=== PATIENT | male | born 1960 | race Two or more races ===

== ENCOUNTER → 2017-05-14 | Emergency (ER) | payer MEDICAID ==
[~2017-05-14] MED LIST: ACTOS; ALBUTEROL SULF 2.5 MG/0.5ML(0.5%) NEB SOLN ONE; AMIT PO; ASPI-266 PO; ATOR20TA PO; CANA300T OR; GLIM4TAB42 PO; GLYB1POW; GLYB5TAB8; IPRATROPIUM BROM 0.5 MG/2.5ML INH SOL ONE; LISI10TA6 PO; LISIPOW; METF-370; METF-370 PO; METFORMIN; METH750T3 PO; PIOG15TA46 OR; PIOG30TA7; SIMVPOW2; TRAM50TA2 PO
== END | disposition left against medical advice (07) ==
LOC: ER 23:40
DX: R07.89 Other chest pain (principal); R06.02 Shortness of breath; Z53.21 Procedure and treatment not carried out due to patient leaving prior to being seen by health care provider

== ENCOUNTER 2017-05-15 10:14 | Inpatient (IN) | payer MEDICAID ==
[~2017-05-15] VITALS: Ht 170.2 cm; Wt 95.1 kg
[~2017-05-15 10:14] MED LIST changes: -ALBUTEROL SULF 2.5 MG/0.5ML(0.5%) NEB SOLN ONE; -AMIT PO; -ASPI-266 PO; -ATOR20TA PO; -CANA300T OR; -GLIM4TAB42 PO; -IPRATROPIUM BROM 0.5 MG/2.5ML INH SOL ONE; -LISI10TA6 PO; -METF-370 PO; -METH750T3 PO; -PIOG15TA46 OR; -TRAM50TA2 PO
[2017-05-15 10:56] LABS: Basophils # (auto) 0.1 uL; Basophils % (auto) 0.9 % (0.0-2.0); CONDITION AutoValidated; Eosinophils # (auto) 0.1 uL; Eosinophils % (auto) 2.5 % (0.0-7.0); Hematocrit 47.5 % (41.0-53.0); Hemoglobin 15.9 g/dL (13.5-17.5); Lymphocytes # (auto) 1.9 uL; Lymphocytes % (auto) 31.8 % (10.0-50.0); Mean Corpuscular Hemoglobin 30.5 pg (28.0-32.0); Mean Corpuscular Hgb Conc. 33.4 g/dL (32.0-36.0); Mean Corpuscular Volume 91.3 fL (80.0-100.0); Mean Platelet Volume 8.4 fL (7.4-10.4); Monocytes # (auto) 0.4 uL; Monocytes % (auto) 7.2 % (0.0-12.0); Neutrophils # (auto) 3.4 uL; Neutrophils % (auto) 57.6 % (37.0-80.0); Platelet Count (auto) 288 10^3/uL (140-450); Red Cell Distribution Width 14.5 % (11.6-16.0); White Blood Cell 5.9 10^3/uL (4.4-10.8)
[2017-05-15 11:14] LABS: Albumin 3.6 g/dL (3.4-5.0); BUN/Creatinine Ratio 16.7; Bilirubin, Total 0.5 mg/dL (0.2-1.0); Calcium 8.8 mg/dL (8.5-10.1); Total Protein 7.4 g/dL (6.4-8.2)
[2017-05-15] MEDS ORDERED: IPRATROPIUM BROM 0.5 MG/2.5ML INH SOL NEB ONE (15:30)
[2017-05-15] MEDS ORDERED: methylPREDNISolone SOD SUCC 125 MG/2 ML VL IV ONE (15:30)
[2017-05-15] MEDS ORDERED: ALBUTEROL SULF 2.5 MG/0.5ML(0.5%) NEB SOLN NEB ONE (15:30)
[2017-05-15 15:58] LABS: B-Type Natriuretic Peptide 29.1 pg/mL (0-100)
[2017-05-15 15:59] LABS: Temperature: 23.7 C (20.0-25.0)
[2017-05-15] MEDS ORDERED: POTASSIUM CHL 10 Meq TABLET PO ONE (17:30)
[2017-05-15] MEDS ORDERED: DEXTROSE (50%) 50ML SYRG IV PRN (17:30)
[2017-05-15] MEDS ORDERED: FUROSEMIDE 40 MG/4 ML VIAL IV ONE (17:30)
[2017-05-15] MEDS ORDERED: NITROGLYCERIN 0.4 MG SL TAB SL PRN (17:45)
[2017-05-15] MEDS ORDERED: DOCUSATE SOD 100 MG CAP PO PRN (17:45)
[2017-05-15] MEDS ORDERED: ONDANSETRON HCL 4 MG/2 ML VIAL IV PRN (17:45)
[2017-05-15] MEDS ORDERED: HYDROcodone-ACET 5/325MG TAB PO PRN (17:45)
[2017-05-15] MEDS ORDERED: TEMAZEPAM 15 MG CAP PO PRN (17:45)
[2017-05-15] MEDS ORDERED: MORPHINE SULF INJ 2 MG/ML SYRINGE 1ML IV PRN ×2 (17:45)
[2017-05-15] MEDS: ALBUTEROL SULF 2.5 MG/0.5ML(0.5%) NEB SOLN NEB SCH (18:44)
[2017-05-15] MEDS: IPRATROPIUM BROM 0.5 MG/2.5ML INH SOL NEB SCH (18:44)
[2017-05-15 20:06] LABS: Urine RBC None Seen /hpf (0 - 3)
[2017-05-15 20:13] VITALS: BP 159/87
[2017-05-15 20:26] LABS: Urine Bilirubin Negative (Negative); Urine Blood Negative /uL (Negative); Urine Color Colorless (Yellow); Urine Ketone Negative (Negative); Urine Nitrite Negative (Negative); Urine Urobilinogen Normal (Negative)
[2017-05-15 20:39] LABS: Urine Glucose 4+ mg/dL (Normal)
[2017-05-15] MEDS: ATORVASTATIN 20 MG TAB PO SCH (21:54)
[2017-05-15] MEDS: AMITRIPTYLINE HCL 25 MG TAB PO SCH (21:54)
[2017-05-15] MEDS: ACCU-CHEK COMFORT CURVE STRIP VI SCH (21:58)
[2017-05-15] MEDS: InsuLIN REG 1unit/0.01ml Soln (100units/ml) SC SCH (22:05)
[2017-05-15] MEDS: SODIUM CHLOR 0.9% PF (SALINE LOCK) 10ML VIAL IV SCH (22:06)
[2017-05-15 23:10] VITALS: BP 167/91
[2017-05-15] MEDS ORDERED: METH750T3 PO (23:39)
[2017-05-15] MEDS ORDERED: CANA300T OR (23:39)
[2017-05-15] MEDS ORDERED: AMIT PO (23:39)
[2017-05-15] MEDS ORDERED: METF-370 PO (23:39)
[2017-05-15] MEDS ORDERED: ASPI-266 PO (23:39)
[2017-05-15] MEDS ORDERED: GLIM4TAB42 PO (23:39)
[2017-05-15] MEDS ORDERED: PIOG15TA46 OR (23:39)
[2017-05-15] MEDS ORDERED: LISI10TA6 PO (23:39)
[2017-05-15] MEDS ORDERED: ATOR20TA PO (23:39)
[2017-05-15] MEDS ORDERED: TRAM50TA2 PO (23:39)
[2017-05-16] VITALS (7 sets, daily range): BP systolic 113–160; BP diastolic 75–97
[2017-05-16] MEDS: ALBUTEROL SULF 2.5 MG/0.5ML(0.5%) NEB SOLN NEB SCH ×4 (01:08→18:53)
[2017-05-16] MEDS: IPRATROPIUM BROM 0.5 MG/2.5ML INH SOL NEB SCH ×4 (01:08→18:53)
[2017-05-16] MEDS: GLIMEPIRIDE 2 MG TAB PO SCH (06:08)
[2017-05-16] MEDS: ACCU-CHEK COMFORT CURVE STRIP VI SCH ×4 (06:22→22:16)
[2017-05-16] MEDS: InsuLIN REG 1unit/0.01ml Soln (100units/ml) SC SCH ×4 (06:23→22:17)
[2017-05-16] MEDS: SODIUM CHLOR 0.9% PF (SALINE LOCK) 10ML VIAL IV SCH ×3 (06:25→22:07)
[2017-05-16 06:39] LABS: Basophils # (auto) 0 uL; Basophils % (auto) 0.2 % (0.0-2.0); CONDITION AutoValidated; Eosinophils # (auto) 0 uL; Hematocrit 47.5 % (41.0-53.0); Hemoglobin 15.8 g/dL (13.5-17.5); Lymphocytes % (auto) 8.3 % (10.0-50.0); Mean Corpuscular Hemoglobin 30.2 pg (28.0-32.0); Mean Corpuscular Hgb Conc. 33.3 g/dL (32.0-36.0); Mean Corpuscular Volume 90.7 fL (80.0-100.0); Mean Platelet Volume 8.6 fL (7.4-10.4); Monocytes # (auto) 0.2 uL; Monocytes % (auto) 1.4 % (0.0-12.0); Neutrophils # (auto) 10.4 uL; Neutrophils % (auto) 90.1 % (37.0-80.0); Platelet Count (auto) 315 10^3/uL (140-450); Red Cell Distribution Width 14.5 % (11.6-16.0); White Blood Cell 11.5 10^3/uL (4.4-10.8)
[2017-05-16 07:07] LABS: Albumin 3.5 g/dL (3.4-5.0); BUN/Creatinine Ratio 28.7; Bilirubin, Total 0.4 mg/dL (0.2-1.0); Calcium 9.2 mg/dL (8.5-10.1); Potassium 3.9 mmol/L (3.5-5.1); Total Protein 7.5 g/dL (6.4-8.2)
[2017-05-16] MEDS: PIOGLITAZONE HYDROCHLORIDE 30 MG TAB PO SCH (10:00)
[2017-05-16] MEDS: INVOKANA 300 MG PO SCH (10:00)
[2017-05-16] MEDS: MULTIPLE VITAMIN TAB PO SCH (10:01)
[2017-05-16] MEDS: LISINOPRIL 10 MG TAB PO SCH (10:01)
[2017-05-16] MEDS: POTASSIUM CHL 10 Meq TABLET PO SCH (10:02)
[2017-05-16] MEDS: ASPirin-EC 81 mg tab PO SCH (10:02)
[2017-05-16] MEDS: FUROSEMIDE 40 MG/4 ML VIAL IV SCH (10:07)
[2017-05-16] MEDS: METHOCARBAMOL 500 MG TAB PO PRN (20:45)
[2017-05-16] MEDS: traMADol HCL 50 MG TAB PO PRN (20:45)
[2017-05-16] MEDS: AMITRIPTYLINE HCL 25 MG TAB PO SCH (22:07)
[2017-05-16] MEDS: ATORVASTATIN 20 MG TAB PO SCH (22:08)
[2017-05-17] MEDS: IPRATROPIUM BROM 0.5 MG/2.5ML INH SOL NEB SCH ×4 (00:52→19:18)
[2017-05-17] MEDS: ALBUTEROL SULF 2.5 MG/0.5ML(0.5%) NEB SOLN NEB SCH ×4 (00:52→19:18)
[2017-05-17 05:08] VITALS: BP 129/89
[2017-05-17] MEDS: SODIUM CHLOR 0.9% PF (SALINE LOCK) 10ML VIAL IV SCH ×3 (06:26→21:43)
[2017-05-17] MEDS: GLIMEPIRIDE 2 MG TAB PO SCH (06:35)
[2017-05-17] MEDS: ACCU-CHEK COMFORT CURVE STRIP VI SCH ×4 (06:35→21:44)
[2017-05-17] MEDS: InsuLIN REG 1unit/0.01ml Soln (100units/ml) SC SCH ×4 (06:35→21:49)
[2017-05-17] MEDS: ACETAMINOPHEN 325 MG TAB PO PRN ×3 (07:06→09:54)
[2017-05-17 07:09] LABS: Basophils # (auto) 0.1 uL; Basophils % (auto) 0.9 % (0.0-2.0); CONDITION Y; Eosinophils # (auto) 0.2 uL; Eosinophils % (auto) 1.8 % (0.0-7.0); Hematocrit 46.8 % (41.0-53.0); Hemoglobin 15.4 g/dL (13.5-17.5); Lymphocytes # (auto) 3.2 uL; Lymphocytes % (auto) 32.1 % (10.0-50.0); Mean Corpuscular Hgb Conc. 32.8 g/dL (32.0-36.0); Mean Corpuscular Volume 91.6 fL (80.0-100.0); Mean Platelet Volume 8.6 fL (7.4-10.4); Monocytes # (auto) 0.7 uL; Monocytes % (auto) 6.8 % (0.0-12.0); Neutrophils # (auto) 5.7 uL; Neutrophils % (auto) 58.4 % (37.0-80.0); Platelet Count (auto) 314 10^3/uL (140-450); Red Cell Distribution Width 14.6 % (11.6-16.0); White Blood Cell 9.8 10^3/uL (4.4-10.8)
[2017-05-17 07:25] LABS: Albumin 3.6 g/dL (3.4-5.0); BUN/Creatinine Ratio 35.8; Bilirubin, Total 0.3 mg/dL (0.2-1.0); Calcium 8.8 mg/dL (8.5-10.1); Potassium 3.7 mmol/L (3.5-5.1); Total Protein 7.3 g/dL (6.4-8.2)
[2017-05-17 08:00] VITALS: BP 130/81
[2017-05-17 08:15] VITALS: BP 130/81
[2017-05-17 08:27] LABS: B-Type Natriuretic Peptide 21.75 pg/mL (0-100)
[2017-05-17 08:29] LABS: Temperature: 24.5 C (20.0-25.0)
[2017-05-17] MEDS: traMADol HCL 50 MG TAB PO PRN ×2 (08:58→20:28)
[2017-05-17] MEDS ORDERED: LORazepam 2MG/ML-1ML VIAL IV ONE ×2 (09:15→10:45)
[2017-05-17] MEDS: INVOKANA 300 MG PO SCH (10:00)
[2017-05-17] MEDS ORDERED: ADENOSINE 81 MG in GIVE UN-DILUTED 0 ML IV ONE (10:45)
[2017-05-17] MEDS: POTASSIUM CHL 10 Meq TABLET PO SCH (11:19)
[2017-05-17] MEDS: FUROSEMIDE 40 MG/4 ML VIAL IV SCH (11:19)
[2017-05-17] MEDS: MULTIPLE VITAMIN TAB PO SCH (11:20)
[2017-05-17] MEDS: PIOGLITAZONE HYDROCHLORIDE 30 MG TAB PO SCH (11:49)
[2017-05-17] MEDS: ASPirin-EC 81 mg tab PO SCH (11:50)
[2017-05-17] MEDS: LISINOPRIL 10 MG TAB PO SCH (11:50)
[2017-05-17 12:01] VITALS: BP 137/100
[2017-05-17 20:00] VITALS: BP 127/74
[2017-05-17] MEDS: METHOCARBAMOL 500 MG TAB PO PRN (20:28)
[2017-05-17 21:42] VITALS: BP 127/74
[2017-05-17] MEDS: ATORVASTATIN 20 MG TAB PO SCH (21:44)
[2017-05-17] MEDS: AMITRIPTYLINE HCL 25 MG TAB PO SCH (21:44)
[2017-05-18 04:36] VITALS: BP 128/75
[2017-05-18] MEDS: SODIUM CHLOR 0.9% PF (SALINE LOCK) 10ML VIAL IV SCH ×3 (05:34→21:47)
[2017-05-18] MEDS: GLIMEPIRIDE 2 MG TAB PO SCH (06:22)
[2017-05-18] MEDS: ACCU-CHEK COMFORT CURVE STRIP VI SCH ×4 (06:22→21:50)
[2017-05-18] MEDS: InsuLIN REG 1unit/0.01ml Soln (100units/ml) SC SCH ×4 (06:30→21:50)
[2017-05-18] MEDS: IPRATROPIUM BROM 0.5 MG/2.5ML INH SOL NEB SCH ×4 (06:34→19:37)
[2017-05-18] MEDS: ALBUTEROL SULF 2.5 MG/0.5ML(0.5%) NEB SOLN NEB SCH ×4 (06:34→19:37)
[2017-05-18 09:00] VITALS: BP 131/81
[2017-05-18] MEDS: INVOKANA 300 MG PO SCH (10:00)
[2017-05-18] MEDS ORDERED: FUROSEMIDE 40 MG/4 ML VIAL IV ONE (10:15)
[2017-05-18] MEDS: POTASSIUM CHL 10 Meq TABLET PO SCH ×2 (10:19→21:49)
[2017-05-18] MEDS: LISINOPRIL 10 MG TAB PO SCH (10:20)
[2017-05-18] MEDS: ASPirin-EC 81 mg tab PO SCH (10:20)
[2017-05-18] MEDS: MULTIPLE VITAMIN TAB PO SCH (10:20)
[2017-05-18] MEDS: PIOGLITAZONE HYDROCHLORIDE 30 MG TAB PO SCH (10:21)
[2017-05-18 13:00] VITALS: BP 150/93
[2017-05-18] MEDS: SPIRONOLACTONE 25 MG TAB PO SCH ×2 (14:58→21:48)
[2017-05-18 16:36] VITALS: BP 124/75
[2017-05-18 20:00] VITALS: BP 128/48
[2017-05-18] MEDS: traMADol HCL 50 MG TAB PO PRN (20:24)
[2017-05-18] MEDS: METHOCARBAMOL 500 MG TAB PO PRN (20:24)
[2017-05-18] MEDS: CARVEDILOL 3.125 MG TAB PO SCH (21:48)
[2017-05-18] MEDS: ATORVASTATIN 20 MG TAB PO SCH (21:49)
[2017-05-18] MEDS: AMITRIPTYLINE HCL 25 MG TAB PO SCH (21:49)
[2017-05-18 22:00] VITALS: BP 128/48
[2017-05-19] MEDS: IPRATROPIUM BROM 0.5 MG/2.5ML INH SOL NEB SCH ×2 (01:23→05:58)
[2017-05-19] MEDS: ALBUTEROL SULF 2.5 MG/0.5ML(0.5%) NEB SOLN NEB SCH ×2 (01:23→05:58)
[2017-05-19 03:48] VITALS: BP 128/48
[2017-05-19] MEDS: SODIUM CHLOR 0.9% PF (SALINE LOCK) 10ML VIAL IV SCH (04:39)
[2017-05-19 05:00] VITALS: BP 112/71
[2017-05-19] MEDS: SPIRONOLACTONE 25 MG TAB PO SCH (06:33)
[2017-05-19] MEDS: ACCU-CHEK COMFORT CURVE STRIP VI SCH (06:35)
[2017-05-19] MEDS: GLIMEPIRIDE 2 MG TAB PO SCH (06:35)
[2017-05-19] MEDS: InsuLIN REG 1unit/0.01ml Soln (100units/ml) SC SCH (06:36)
[2017-05-19 08:08] LABS: Basophils # (auto) 0.1 uL; CONDITION Y; Eosinophils # (auto) 0.2 uL; Eosinophils % (auto) 2.6 % (0.0-7.0); Hematocrit 49.3 % (41.0-53.0); Hemoglobin 16.4 g/dL (13.5-17.5); Lymphocytes # (auto) 2.3 uL; Lymphocytes % (auto) 32.9 % (10.0-50.0); Mean Corpuscular Hemoglobin 30.2 pg (28.0-32.0); Mean Corpuscular Hgb Conc. 33.2 g/dL (32.0-36.0); Mean Corpuscular Volume 91.1 fL (80.0-100.0); Mean Platelet Volume 8.6 fL (7.4-10.4); Monocytes # (auto) 0.6 uL; Monocytes % (auto) 7.9 % (0.0-12.0); Neutrophils # (auto) 3.9 uL; Neutrophils % (auto) 55.6 % (37.0-80.0); Platelet Count (auto) 310 10^3/uL (140-450); Red Cell Distribution Width 14.6 % (11.6-16.0)
[2017-05-19 08:24] VITALS: BP 130/82
[2017-05-19 08:54] LABS: Albumin 3.6 g/dL (3.4-5.0); BUN/Creatinine Ratio 40.2; Bilirubin, Total 0.4 mg/dL (0.2-1.0); Calcium 9.3 mg/dL (8.5-10.1); Magnesium 2.4 mg/dL (1.6-2.6); Potassium 4.4 mmol/L (3.5-5.1); Total Protein 7.4 g/dL (6.4-8.2)
[2017-05-19] MEDS: CARVEDILOL 3.125 MG TAB PO SCH (09:15)
[2017-05-19] MEDS: PIOGLITAZONE HYDROCHLORIDE 30 MG TAB PO SCH (09:15)
[2017-05-19] MEDS: POTASSIUM CHL 10 Meq TABLET PO SCH (09:16)
[2017-05-19] MEDS: LISINOPRIL 10 MG TAB PO SCH (09:16)
[2017-05-19] MEDS: ASPirin-EC 81 mg tab PO SCH (09:16)
[2017-05-19] MEDS: MULTIPLE VITAMIN TAB PO SCH (09:17)
[2017-05-19] MEDS ORDERED: FUROSEMIDE 40 MG/4 ML VIAL IV SCH (10:00)
[2017-05-19] MEDS: INVOKANA 300 MG PO SCH (10:30)
[2017-05-19 12:03] VITALS: BP 130/82
[2017-05-19 12:53] VITALS: BP 125/83
== END 2017-05-19 13:20 | disposition home or self-care (01) | DRG 194 ==
LOC: ER 10:20 → TELE 10:21 → TELE-WESTW 20:13
PROVIDERS: ADMIT Internal Medicine; ATTEND Internal Medicine
DX: I11.0 Hypertensive heart disease with heart failure (principal); E11.65 Type 2 diabetes mellitus with hyperglycemia; J45.909 Unspecified asthma, uncomplicated; I50.43 Acute on chronic combined systolic (congestive) and diastolic (congestive) heart failure; E78.5 Hyperlipidemia, unspecified; E66.9 Obesity, unspecified; Z68.32 Body mass index [BMI] 32.0-32.9, adult; E78.00 Pure hypercholesterolemia, unspecified; F17.210 Nicotine dependence, cigarettes, uncomplicated; J98.11 Atelectasis; Z83.3 Family history of diabetes mellitus; Z71.9 Counseling, unspecified
CPT/HCPCS: 36415; 36600; 71010; 80053; 81001; 82805; 82962; 83036; 83735; 83880; 84484; 85025; 85379; 93005; 93306; 94640; 96374; 96375; 99291; J0153; J1815

== ENCOUNTER 2018-10-15 18:04 | Emergency (ER) | payer MEDICAID ==
[~2018-10-15] VITALS: Ht 170.2 cm; Wt 109.3 kg
[~2018-10-15 18:04] MED LIST changes: -ACTOS; +AMIT PO; +ASPI-266 PO; +ATOR20TA PO; +CANA300T OR; +GLIM4TAB42 PO; -GLYB1POW; -GLYB5TAB8; +LISI10TA6 PO; -LISIPOW; -METF-370; +METF-370 PO; -METFORMIN; +METH750T3 PO; +PIOG1TAB36 OR; -PIOG30TA7; -SIMVPOW2; +TRAM50TA2 PO
[2018-10-15 19:06] LABS: Urine Bacteria NONE SEEN /hpf (None Seen); Urine Blood Negative /uL (Negative); Urine Specific Gravity 1.002 (1.001-1.035); Urine WBC <1 /hpf (0 - 3)
[2018-10-15 19:34] LABS: Basophils # (auto) 0.1 uL; Basophils % (auto) 0.9 % (0.0-2.0); Eosinophils # (auto) 0.2 uL; Eosinophils % (auto) 2.3 % (0.0-7.0); Hematocrit 41.3 % (41.0-53.0); Hemoglobin 13.3 g/dL (13.5-17.5); Lymphocytes # (auto) 2.5 uL; Lymphocytes % (auto) 31.1 % (10.0-50.0); Mean Corpuscular Hemoglobin 29.7 pg (28.0-32.0); Mean Corpuscular Hgb Conc. 32.2 g/dL (32.0-36.0); Mean Corpuscular Volume 92.3 fL (80.0-100.0); Monocytes # (auto) 0.7 uL; Monocytes % (auto) 8.6 % (0.0-12.0); Neutrophils # (auto) 4.5 uL; Neutrophils % (auto) 57.1 % (37.0-80.0); Nucleated Red Blood Cells % 0.2 %; Platelet Count (auto) 241 10^3/uL (140-450); Red Blood Cells 4.48 10^6/uL (4.5-5.90); Red Cell Distribution Width 14.6 % (11.8-14.3)
[2018-10-15] MEDS: ONDANSETRON HCL 4 MG/2 ML VIAL IV ONE (19:41)
[2018-10-15] MEDS: MORPHINE SULFATE 4 MG/ML SYR/VIAL IV ONE ×2 (19:41→20:26)
[2018-10-15 21:20] VITALS: BP 96/51
== END 2018-10-15 22:23 | disposition home or self-care (01) ==
LOC: ER 18:04
DX: S32.029A Unspecified fracture of second lumbar vertebra, initial encounter for closed fracture (principal); S29.019A Strain of muscle and tendon of unspecified wall of thorax, initial encounter; E11.9 Type 2 diabetes mellitus without complications; I10 Essential (primary) hypertension; E78.5 Hyperlipidemia, unspecified; F17.210 Nicotine dependence, cigarettes, uncomplicated; E66.01 Morbid (severe) obesity due to excess calories; Z68.37 Body mass index [BMI] 37.0-37.9, adult; Z79.899 Other long term (current) drug therapy; X50.1XXA Overexertion from prolonged static or awkward postures, initial encounter; Y93.89 Activity, other specified; Y99.8 Other external cause status; Y92.89 Other specified places as the place of occurrence of the external cause
CPT/HCPCS: 36415; 71046; 72128; 72131; 81001; 84484; 85025; 93005; 94660; 94761; 96374; 96375; 96376; 99285; J2270; J2405

== ENCOUNTER 2022-06-25 15:03 | Emergency (ER) | payer MEDICAID ==
[~2022-06-25] VITALS: Ht 170.2 cm; Wt 85.8 kg
[~2022-06-25 15:03] MED LIST changes: -AMIT PO; +AMIT10TA8 PO; -ASPI-266 PO; +ASPI1TAB91 PO; +LISI-716 PO; -LISI10TA6 PO; +METH750T22 PO; -METH750T3 PO
[2022-06-25 19:31] LABS: Basophils # (auto) 0 10 ^3/uL (0-0.2); Basophils % (auto) 0.7 % (0.0-2.0); Eosinophils # (auto) 0.1 10 ^3/uL (0-0.8); Eosinophils % (auto) 1.6 % (0.0-7.0); Hematocrit 43.1 % (41.0-53.0); Hemoglobin 13.8 g/dL (13.5-17.5); Lymphocytes # (auto) 1.7 10 ^3/uL (0.4-5.4); Mean Corpuscular Hemoglobin 30.2 pg (28.0-32.0); Mean Corpuscular Hgb Conc. 31.9 g/dL (32.0-36.0); Mean Corpuscular Volume 94.5 fL (80.0-100.0); Monocytes # (auto) 0.7 10 ^3/uL (0-1.3); Monocytes % (auto) 10.3 % (0.0-12.0); Neutrophils # (auto) 4.7 10 ^3/uL (1.6-8.6); Neutrophils % (auto) 64.4 % (37.0-80.0); Red Blood Cells 4.56 10^6/uL (4.5-5.90); Red Cell Distribution Width 14.9 % (11.8-14.3); White Blood Cell 7.3 10^3/uL (4.4-10.8)
[2022-06-25 19:43] LABS: Urine WBC None Seen /hpf (0 - 3)
[2022-06-25 19:44] LABS: Albumin 3.3 g/dL (3.4-5.0); BUN/Creatinine Ratio 22.7; Calcium 9.4 mg/dL (8.5-10.1); Potassium 4.3 mmol/L (3.5-5.1)
[2022-06-25 19:51] LABS: Bilirubin, Total 0.2 mg/dL (0.2-1.0); Total Protein 6.9 g/dL (6.4-8.2)
[2022-06-25 20:21] LABS: Urine Bacteria NONE SEEN /hpf (None Seen); Urine Blood Negative /uL (Negative); Urine Specific Gravity 1.033 (1.001-1.035)
[2022-06-25 21:08] VITALS: BP 138/76
== END 2022-06-25 21:17 | disposition home or self-care (01) ==
LOC: ER 15:03
DX: E11.65 Type 2 diabetes mellitus with hyperglycemia (principal); I10 Essential (primary) hypertension; E78.5 Hyperlipidemia, unspecified; F17.210 Nicotine dependence, cigarettes, uncomplicated; Z79.82 Long term (current) use of aspirin; Z79.899 Other long term (current) drug therapy
CPT/HCPCS: 36415; 80053; 81001; 82962; 85025

== ENCOUNTER 2022-10-15 09:25 | Inpatient (IN) | payer MEDICAID ==
[~2022-10-15] VITALS: Ht 30.5 cm; Wt 88.0 kg
[2022-10-15] MEDS ORDERED: LABETALOL HCL 5 MG/ML 4ML SYRINGE IV ONE ×2 (09:30→11:00)
[2022-10-15] MEDS ORDERED: SODIUM CHLORIDE 0.9% 500 ML IV ONE (09:30)
[2022-10-15 10:13] LABS: Albumin 3.4 g/dL (3.4-5.0); Calcium 9.5 mg/dL (8.5-10.1); Magnesium 2.9 mg/dL (1.6-2.6); Potassium 4.9 mmol/L (3.5-5.1)
[2022-10-15 10:16] LABS: Basophils # (auto) 0 10 ^3/uL (0-0.2); Basophils % (auto) 0.4 % (0.0-2.0); Eosinophils # (auto) 0 10 ^3/uL (0-0.8); Eosinophils % (auto) 0.1 % (0.0-7.0); Hematocrit 39.7 % (41.0-53.0); Hemoglobin 12.6 g/dL (13.5-17.5); Lymphocytes # (auto) 2.5 10 ^3/uL (0.4-5.4); Lymphocytes % (auto) 23.8 % (10.0-50.0); Mean Corpuscular Hgb Conc. 31.7 g/dL (32.0-36.0); Mean Corpuscular Volume 97.8 fL (80.0-100.0); Monocytes # (auto) 0.5 10 ^3/uL (0-1.3); Monocytes % (auto) 4.9 % (0.0-12.0); Neutrophils # (auto) 7.5 10 ^3/uL (1.6-8.6); Neutrophils % (auto) 70.8 % (37.0-80.0); Nucleated Red Blood Cells % 0.1 %; Red Blood Cells 4.06 10^6/uL (4.5-5.90); Red Cell Distribution Width 14.6 % (11.8-14.3); White Blood Cell 10.6 10^3/uL (4.4-10.8)
[2022-10-15 10:19] LABS: INR 0.97 (0.9-1.15)
[2022-10-15 10:20] LABS: BUN/Creatinine Ratio 35.3; Bilirubin, Total 0.6 mg/dL (0.2-1.0); Total Protein 6.7 g/dL (6.4-8.2)
[2022-10-15] MEDS ORDERED: AMIODARONE HCL (50 MG/ ML) 3 ML VIAL IV ONE ×2 (10:34→10:35)
[2022-10-15] MEDS ORDERED: MIDAZOLAM HCL 5 MG/ML-1ML VIAL ONE (10:35)
[2022-10-15] MEDS ORDERED: AMIODARONE 450mg/250ml AE 250 ML IV ONE (10:39)
[2022-10-15] MEDS ORDERED: InsuLIN REG 1unit/0.01ml Soln (100units/ml) IV ONE (10:45)
[2022-10-15] MEDS ORDERED: DEXTROSE (50%) 50ML SYRG IV PRN ×3 (10:45→18:15)
[2022-10-15] MEDS ORDERED: InsuLIN R (HUMAN) 100 UNITS in SODIUM CHL 0.9% 99 ML IV SCH (10:45)
[2022-10-15] MEDS ORDERED: AMIODARONE 450mg/250ml AE 250 ML IV SCH (10:45)
[2022-10-15] MEDS ORDERED: AMIODARONE HCL 150 MG in D5W 5% 100 ML IV ONE (10:45)
[2022-10-15] MEDS ORDERED: INSULIN LANTUS (GLARGINE) 1 /0.01ml (100units/ml) SC ONE (10:45)
[2022-10-15] MEDS ORDERED: MIDAZOLAM HCL 5 MG/ML-1ML VIAL IV ONE (11:00)
[2022-10-15] MEDS: ACCU-CHEK COMFORT CURVE STRIP VI SCH ×7 (12:06→22:30)
[2022-10-15] MEDS ORDERED: SODIUM CHLORIDE 0.9% 2,000 ML IV ONE (12:15)
[2022-10-15] MEDS ORDERED: DOCUSATE SOD 100 MG CAP PO PRN (13:30)
[2022-10-15] MEDS ORDERED: MORPHINE SULFATE INJ 2 MG/ml SYRG IV PRN ×2 (13:30)
[2022-10-15] MEDS ORDERED: NITROGLYCERIN 0.4 MG SL TAB SL PRN (13:30)
[2022-10-15] MEDS ORDERED: ONDANSETRON HCL 4 MG/2 ML VIAL IV PRN (13:30)
[2022-10-15] MEDS ORDERED: chlordiazePOXIDE HCL 25 MG CAP PO ONE (13:45)
[2022-10-15 14:14] LABS: Urine Bacteria NONE SEEN /hpf (None Seen); Urine Blood Negative /uL (Negative); Urine Specific Gravity 1.025 (1.001-1.035); Urine WBC 2 /hpf (0 - 3)
[2022-10-15] MEDS ORDERED: LORazepam 2MG/ML-1ML VIAL IV PRN (14:15)
[2022-10-15] MEDS: SODIUM CHLORIDE 0.9% 1,000 ML IV SCH (15:10)
[2022-10-15 15:42] LABS: BUN/Creatinine Ratio 47.7; Calcium 8.1 mg/dL (8.5-10.1); Potassium 4.5 mmol/L (3.5-5.1)
[2022-10-15] MEDS: InsuLIN R (HUMAN) 100 UNITS in SODIUM CHL 0.9% 99 ML IV SCH (18:00)
[2022-10-15] MEDS ORDERED: InsuLIN REG 1unit/0.01ml Soln (100units/ml) SC SCH (18:00)
[2022-10-15] MEDS ORDERED: ACCU-CHEK COMFORT CURVE STRIP VI SCH (18:00)
[2022-10-15] MEDS: AMIODARONE 450mg/250ml AE 250 ML IV SCH (18:21)
[2022-10-15 19:18] LABS: BUN/Creatinine Ratio 49.6; Calcium 8.7 mg/dL (8.5-10.1); Potassium 4.5 mmol/L (3.5-5.1)
[2022-10-15 20:40] LABS: Alcohol, Urine < 3.0 mg/dL (0-10); Amphetamine Screen, Urine POSITIVE (NEGATIVE); Barbiturate Scree,Urine NEGATIVE (NEGATIVE); Benzodiazephine Screen, Urine NEGATIVE (NEGATIVE); Cannabinoid Screen, Urine NEGATIVE (NEGATIVE); Cocaine Screen, Urine NEGATIVE (NEGATIVE); Opiate Scree,Urine NEGATIVE (NEGATIVE); Phencyclidine Screen, Urine NEGATIVE (NEGATIVE)
[2022-10-16] MEDS: SODIUM CHLORIDE 0.9% 1,000 ML IV SCH ×4 (00:04→23:13)
[2022-10-16] MEDS: ACCU-CHEK COMFORT CURVE STRIP VI SCH ×16 (01:30→22:30)
[2022-10-16 07:00] LABS: Basophils # (auto) 0.2 10 ^3/uL (0-0.2); Basophils % (auto) 1.3 % (0.0-2.0); Eosinophils # (auto) 0.1 10 ^3/uL (0-0.8); Eosinophils % (auto) 0.6 % (0.0-7.0); Hematocrit 30.6 % (41.0-53.0); Lymphocytes # (auto) 1.9 10 ^3/uL (0.4-5.4); Lymphocytes % (auto) 10.9 % (10.0-50.0); Mean Corpuscular Hemoglobin 30.4 pg (28.0-32.0); Mean Corpuscular Hgb Conc. 32.8 g/dL (32.0-36.0); Mean Corpuscular Volume 92.9 fL (80.0-100.0); Monocytes # (auto) 1.4 10 ^3/uL (0-1.3); Monocytes % (auto) 8.1 % (0.0-12.0); Neutrophils # (auto) 13.5 10 ^3/uL (1.6-8.6); Neutrophils % (auto) 79.1 % (37.0-80.0); Red Blood Cells 3.29 10^6/uL (4.5-5.90); Red Cell Distribution Width 13.9 % (11.8-14.3); White Blood Cell 17.1 10^3/uL (4.4-10.8)
[2022-10-16 07:15] LABS: Calcium 8.3 mg/dL (8.5-10.1); Chloride 113 mmol/L (98-107); Potassium 4.8 mmol/L (3.5-5.1); Sodium 141 mmol/L (136-145)
[2022-10-16 07:18] LABS: Alanine Aminotransferase 29 U/L (16-61); Albumin 2.8 g/dL (3.4-5.0); Anion Gap 15 (5-15); Aspartate Aminotransferase 22 U/L (15-37); BUN/Creatinine Ratio 48.2; Blood Urea Nitrogen 54 mg/dL (7-18); Carbon Dioxide 13 mmol/L (21-32); GFR African American 85 mL/min; GFR Non-African American 70 mL/min; Glucose 273 mg/dL (74-106); Magnesium 2.3 mg/dL (1.6-2.6)
[2022-10-16 07:20] LABS: Alkaline Phosphatase 74 U/L (45-117); Bilirubin, Total 0.5 mg/dL (0.2-1.0)
[2022-10-16] MEDS: InsuLIN R (HUMAN) 100 UNITS in SODIUM CHL 0.9% 99 ML IV SCH ×5 (08:16→18:01)
[2022-10-16] MEDS ORDERED: INSULIN LANTUS (GLARGINE) 1 /0.01ml (100units/ml) SC SCH (10:00)
[2022-10-16] MEDS: AMIODARONE 450mg/250ml AE 250 ML IV SCH (10:19)
[2022-10-16] MEDS: ENOXAPARIN SOD 40 MG/0.4 ML SYRINGE SC SCH (10:25)
[2022-10-16] MEDS: PANTOPRAZOLE 40 MG/10 ML VIAL INJ IV SCH (10:25)
[2022-10-16] MEDS ORDERED: hydrALAZINE HCL 20 MG/ML VL IV ONE (11:15)
[2022-10-16 19:48] LABS: BUN/Creatinine Ratio 41.1; Calcium 8.2 mg/dL (8.5-10.1); Potassium 3.9 mmol/L (3.5-5.1)
[2022-10-16] MEDS: chlordiazePOXIDE HCL 5 MG CAP PO SCH ×2 (22:03→22:10)
[2022-10-16] MEDS: AMIODARONE HCL 200 MG TAB PO SCH (22:14)
[2022-10-16] MEDS: PROPRANOLOL HCL 20 MG TAB PO SCH (22:14)
[2022-10-17] MEDS: SODIUM CHLORIDE 0.9% 1,000 ML IV SCH ×2 (00:36→10:30)
[2022-10-17] MEDS: ACCU-CHEK COMFORT CURVE STRIP VI SCH ×8 (01:33→21:14)
[2022-10-17] MEDS: PROPRANOLOL HCL 20 MG TAB PO SCH ×2 (06:00→13:00)
[2022-10-17] MEDS: chlordiazePOXIDE HCL 5 MG CAP PO SCH ×4 (06:41→21:22)
[2022-10-17] MEDS ORDERED: INSULIN LANTUS (GLARGINE) 1 /0.01ml (100units/ml) SC ONE ×2 (07:30→12:30)
[2022-10-17] MEDS ORDERED: DEXTROSE (50%) 50ML SYRG IV PRN (07:30)
[2022-10-17 08:17] LABS: Basophils # (auto) 0.1 10 ^3/uL (0-0.2); Eosinophils # (auto) 0.1 10 ^3/uL (0-0.8); Hemoglobin 7.5 g/dL (13.5-17.5); Nucleated Red Blood Cells % 0.1 %; Red Blood Cells 2.38 10^6/uL (4.5-5.90); Red Cell Distribution Width 14.1 % (11.8-14.3)
[2022-10-17 08:20] LABS: Basophils % (auto) 0.6 % (0.0-2.0); Eosinophils % (auto) 0.8 % (0.0-7.0); Hematocrit 22.1 % (41.0-53.0); Lymphocytes # (auto) 1.2 10 ^3/uL (0.4-5.4); Lymphocytes % (auto) 10.8 % (10.0-50.0); Mean Corpuscular Hemoglobin 31.4 pg (28.0-32.0); Mean Corpuscular Hgb Conc. 33.8 g/dL (32.0-36.0); Mean Corpuscular Volume 92.8 fL (80.0-100.0); Monocytes # (auto) 1.1 10 ^3/uL (0-1.3); Monocytes % (auto) 9.3 % (0.0-12.0); Neutrophils # (auto) 8.9 10 ^3/uL (1.6-8.6); Neutrophils % (auto) 78.5 % (37.0-80.0); White Blood Cell 11.4 10^3/uL (4.4-10.8)
[2022-10-17 08:34] LABS: Calcium 7.9 mg/dL (8.5-10.1); Magnesium 2.2 mg/dL (1.6-2.6)
[2022-10-17] MEDS: THIAMINE HCL 100 MG TAB PO SCH (08:45)
[2022-10-17] MEDS: PANTOPRAZOLE 40 MG/10 ML VIAL INJ IV SCH (08:45)
[2022-10-17] MEDS: AMIODARONE HCL 200 MG TAB PO SCH ×2 (08:45→21:22)
[2022-10-17] MEDS: ENOXAPARIN SOD 40 MG/0.4 ML SYRINGE SC SCH (08:45)
[2022-10-17] MEDS: InsuLIN REG 1unit/0.01ml Soln (100units/ml) SC SCH ×2 (11:53→17:20)
[2022-10-17] MEDS: FOLIC ACID 1 MG, MULTIPLE VITAMIN 10 ML, MAGNESIUM SULF SDV 50% 8 MEQ, THIAMINE INJ 100... INJ SCH ×5 (12:49)
[2022-10-17 13:00] VITALS: BP 113/54
[2022-10-17 13:30] VITALS: BP 126/62
[2022-10-17] MEDS ORDERED: VERA120T89 PO (13:40)
[2022-10-17] MEDS ORDERED: GLIP10TA9 PO (13:40)
[2022-10-17] MEDS ORDERED: ERTU5TAB PO (13:40)
[2022-10-17] MEDS ORDERED: CARV3.1240 PO (13:40)
[2022-10-17] MEDS ORDERED: MONT-8 PO (13:40)
[2022-10-17] MEDS ORDERED: ASPirin-EC 325mg tab PO ONE (16:15)
[2022-10-17 17:00] VITALS: BP 113/61
[2022-10-17] MEDS: INSULIN LANTUS (GLARGINE) 1 /0.01ml (100units/ml) SC SCH (21:29)
[2022-10-17 22:00] VITALS: BP 111/54
[2022-10-17] MEDS ORDERED: INSULIN LANTUS (GLARGINE) 1 /0.01ml (100units/ml) SC SCH (22:00)
[2022-10-17] MEDS ORDERED: InsuLIN REG 1unit/0.01ml Soln (100units/ml) SC SCH (22:00)
[2022-10-18] VITALS (12 sets, daily range): BP systolic 104–139; BP diastolic 38–66
[2022-10-18] MEDS: chlordiazePOXIDE HCL 5 MG CAP PO SCH ×2 (05:05→13:30)
[2022-10-18] MEDS: ACCU-CHEK COMFORT CURVE STRIP VI SCH ×3 (06:19→17:02)
[2022-10-18] MEDS: InsuLIN REG 1unit/0.01ml Soln (100units/ml) SC SCH ×3 (06:20→17:34)
[2022-10-18] MEDS ORDERED: INSULIN LANTUS (GLARGINE) 1 /0.01ml (100units/ml) SC SCH (08:12)
[2022-10-18] MEDS ORDERED: AMIODARONE HCL 150 MG in D5W 5% 100 ML IV ONE (08:15)
[2022-10-18] MEDS ORDERED: ASPirin-EC 325mg tab PO SCH (10:00)
[2022-10-18] MEDS: THIAMINE HCL 100 MG TAB PO SCH (10:47)
[2022-10-18] MEDS: AMIODARONE HCL 200 MG TAB PO SCH ×2 (10:48→18:57)
[2022-10-18] MEDS: ENOXAPARIN SOD 40 MG/0.4 ML SYRINGE SC SCH (10:48)
[2022-10-18] MEDS: FOLIC ACID 1 MG, MULTIPLE VITAMIN 10 ML, MAGNESIUM SULF SDV 50% 8 MEQ, THIAMINE INJ 100... INJ SCH ×5 (13:00)
[2022-10-18] MEDS ORDERED: FUROSEMIDE 20 MG/2 ML VIAL IV ONE (16:30)
[2022-10-18] MEDS ORDERED: CARV3.1240 PO ×2 (16:40)
[2022-10-18] MEDS ORDERED: PANT40T PO ×2 (16:40)
[2022-10-18] MEDS ORDERED: FERR-7 PO ×2 (16:40)
[2022-10-18] MEDS ORDERED: VERA120T89 PO ×2 (16:40)
[2022-10-18] MEDS ORDERED: AMIO200T33 PO ×2 (16:40)
[2022-10-18] MEDS ORDERED: INSUINJ37 SC ×2 (16:40)
[2022-10-18] MEDS ORDERED: LANC-347 XX ×2 (16:40)
[2022-10-18] MEDS ORDERED: BLOO1KIT60 XX ×2 (16:40)
[2022-10-18] MEDS ORDERED: METF-370 PO ×2 (16:40)
[2022-10-18] MEDS ORDERED: GABA300C10 PO ×2 (16:42)
[2022-10-18] MEDS ORDERED: INSULIN LANTUS (GLARGINE) 1 /0.01ml (100units/ml) SC ONE (18:30)
[2022-10-18] MEDS ORDERED: AMIODARONE HCL 200 MG TAB PO ONE (18:45)
[2022-10-18] MEDS ORDERED: METOPROLOL SUCCINATE XL 50 MG TAB PO ONE (18:45)
[2022-10-18] MEDS: INSULIN LANTUS (GLARGINE) 1 /0.01ml (100units/ml) SC SCH (19:35)
== END 2022-10-18 20:00 | disposition home or self-care (01) | DRG 420 ==
LOC: ER 09:25 → EDBD 09:25 → TELE-CENTR 10:03 → TELE 13:35 → UNDOADMIN 13:35 → TELE 10-17 07:35 → TELE-CENTR 10-17 10:27 → TELE 10-17 10:27 → UNDODISIN 10-18 20:00
PROVIDERS: ADMIT Nurse Practitioner Family; ATTEND Nurse Practitioner Family
DX: E11.10 Type 2 diabetes mellitus with ketoacidosis without coma (principal); I47.20 Ventricular tachycardia, unspecified; N17.9 Acute kidney failure, unspecified; E83.41 Hypermagnesemia; I47.1 Supraventricular tachycardia; E78.5 Hyperlipidemia, unspecified; E86.0 Dehydration; R33.9 Retention of urine, unspecified; Z20.822 Contact with and (suspected) exposure to COVID-19; F10.10 Alcohol abuse, uncomplicated; F17.210 Nicotine dependence, cigarettes, uncomplicated; I10 Essential (primary) hypertension; Z83.3 Family history of diabetes mellitus; Z91.199 Patient's noncompliance with other medical treatment and regimen due to unspecified reason
CPT/HCPCS: 36415; 36600; 71045; 74176; 76775; 80048; 80053; 80061; 80307; 80320; 81001; 82805; 82962; 83036; 83735; 83880; 84100; 84484; 85025; 85610; 85730; 87426; 93306; 93971; 96365; 96372; 96375; 97163; 99291; C9113; G0378; J1815; J2250; J3490; J7060

== ENCOUNTER 2022-10-21 11:54 | Inpatient (IN) | payer MEDICAID ==
[~2022-10-21] VITALS: Ht 170.2 cm; Wt 98.9 kg
[~2022-10-21 11:54] MED LIST changes: +AMIO200T33 PO; +BLOO1KIT60 XX; +CARV3.1240 PO; +ERTU5TAB PO; +FERR-7 PO; +GABA300C10 PO; +GLIP10TA9 PO; +INSUINJ37 SC; +LANC-347 XX; +MONT-8 PO; +PANT40T PO; +VERA120T89 PO
[2022-10-21] MEDS ORDERED: SODIUM CHLORIDE 0.9% 3,000 ML IV ONE (12:15)
[2022-10-21] MEDS ORDERED: ROCURONIUM 10MG/ML 10ML VIAL IV ONE (12:27)
[2022-10-21] MEDS ORDERED: ETOMIDATE (2MG/ML) 20ML VIAL IV ONE (12:27)
[2022-10-21 12:30] VITALS: BP 83/38
[2022-10-21] MEDS ORDERED: EPINEPHrine HCL 250 ML IV ONE (12:33)
[2022-10-21] MEDS ORDERED: MIDAZOLAM DRIP 50 mg/50mL 50 ML IV ONE (12:33)
[2022-10-21 12:51] LABS: Basophils # (auto) 0.1 10 ^3/uL (0-0.2); Eosinophils # (auto) 0.1 10 ^3/uL (0-0.8); Eosinophils % (auto) 0.7 % (0.0-7.0)
[2022-10-21 12:53] LABS: Basophils % (auto) 0.8 % (0.0-2.0); Hematocrit 24.8 % (41.0-53.0); Hemoglobin 7.7 g/dL (13.5-17.5); Lymphocytes # (auto) 2.8 10 ^3/uL (0.4-5.4); Lymphocytes % (auto) 26.6 % (10.0-50.0); Mean Corpuscular Hemoglobin 30.6 pg (28.0-32.0); Mean Corpuscular Volume 98.6 fL (80.0-100.0); Monocytes % (auto) 9.2 % (0.0-12.0); Neutrophils # (auto) 6.7 10 ^3/uL (1.6-8.6); Neutrophils % (auto) 62.7 % (37.0-80.0); Nucleated Red Blood Cells % 0.6 %; Red Blood Cells 2.52 10^6/uL (4.5-5.90); Red Cell Distribution Width 14.6 % (11.8-14.3); White Blood Cell 10.7 10^3/uL (4.4-10.8)
[2022-10-21] MEDS: MIDAZOLAM DRIP 50 mg/50mL 50 ML IV SCH ×3 (13:00→21:36)
[2022-10-21] MEDS: EPINEPHrine HCL 250 ML IV SCH (13:00)
[2022-10-21 13:04] LABS: Albumin 2.4 g/dL (3.4-5.0); Calcium 8.4 mg/dL (8.5-10.1); Magnesium 2.5 mg/dL (1.6-2.6)
[2022-10-21 13:07] LABS: BUN/Creatinine Ratio 24.1; Bilirubin, Total 0.5 mg/dL (0.2-1.0); Phosphorus 4.8 mg/dL (2.5-4.90); Total Protein 5.5 g/dL (6.4-8.2)
[2022-10-21 13:08] LABS: Lactic Acid w/Reflex 6.2 mmol/L (0.4-2.0)
[2022-10-21] MEDS ORDERED: MORPHINE SULFATE INJ 2 MG/ml SYRG IV PRN (13:15)
[2022-10-21] MEDS ORDERED: NITROGLYCERIN 0.4 MG SL TAB SL PRN (13:15)
[2022-10-21 13:18] LABS: Potassium 6.2 mmol/L (3.5-5.1)
[2022-10-21] MEDS: DOPamine 1600MCG/ML D5W 250 ML IV SCH ×3 (13:20→21:38)
[2022-10-21] MEDS: SODIUM CHLORIDE 0.9% 1,000 ML IV SCH ×2 (13:30→21:33)
[2022-10-21] MEDS ORDERED: CALCIUM GLUC 1,000mg/50ml-NS 50 ML IV ONE ×2 (13:30)
[2022-10-21] MEDS ORDERED: SODIUM BICARBONATE 8.4% INJ 50ML SYRINGE IV ONE ×2 (13:30→16:36)
[2022-10-21] MEDS ORDERED: ALBUTEROL SULF 2.5 MG/0.5ML(0.5%) NEB SOLN NEB ONE (13:30)
[2022-10-21] MEDS ORDERED: DEXTROSE (50%) 50ML SYRG IV PRN ×2 (13:30→23:00)
[2022-10-21] MEDS ORDERED: InsuLIN REG 1unit/0.01ml Soln (100units/ml) IV ONE (13:30)
[2022-10-21] MEDS ORDERED: DEXTROSE (50%) 50ML SYRG IV ONE (13:30)
[2022-10-21 13:48] LABS: Cholesterol 83 mg/dL (< 200)
[2022-10-21 13:51] LABS: HDL Cholesterol 47 mg/dL (40-59); LDL Cholesterol 39 mg/dL (< 100); Triglycerides 46 mg/dL (< 150)
[2022-10-21 13:54] LABS: Urine Bacteria NONE SEEN /hpf (None Seen); Urine Blood 1+ /uL (Negative); Urine Specific Gravity 1.025 (1.001-1.035); Urine WBC 11 /hpf (0 - 3)
[2022-10-21 14:08] LABS: Alcohol, Urine < 3.0 mg/dL (0-10); Amphetamine Screen, Urine NEGATIVE (NEGATIVE); Barbiturate Scree,Urine NEGATIVE (NEGATIVE); Benzodiazephine Screen, Urine POSITIVE (NEGATIVE); Cannabinoid Screen, Urine NEGATIVE (NEGATIVE); Cocaine Screen, Urine NEGATIVE (NEGATIVE); Opiate Scree,Urine NEGATIVE (NEGATIVE); Phencyclidine Screen, Urine NEGATIVE (NEGATIVE)
[2022-10-21] MEDS ORDERED: PANTOPRAZOLE 40 MG/10 ML VIAL INJ IV ONE (14:15)
[2022-10-21] MEDS ORDERED: cefTRIAXone 1GM/50ML D5W 50 ML IV ONE (14:15)
[2022-10-21] MEDS ORDERED: SODIUM CHLORIDE 0.9% 1,000 ML IV ONE (14:15)
[2022-10-21 14:16] VITALS: BP 83/38
[2022-10-21 14:33] LABS: INR 0.96 (0.9-1.15)
[2022-10-21] MEDS: VASOPRESSIN 50 UNITS in D5W 5% 247.5 ML IV SCH (14:49)
[2022-10-21 15:54] VITALS: BP 105/46
[2022-10-21] MEDS: ACCU-CHEK COMFORT CURVE STRIP VI SCH ×2 (16:00→20:32)
[2022-10-21 16:08] LABS: Lactic Acid w/Reflex 3.3 mmol/L (0.4-2.0)
[2022-10-21] MEDS ORDERED: CALCIUM CHLOR(10%) 100MG/ML 10ML SYRINGE IV ONE (16:36)
[2022-10-21] MEDS ORDERED: EPINEPHrine HCL 1 MG/10 ML SYRG IV ONE (16:36)
[2022-10-21] MEDS ORDERED: DOPamine 1600mCg/ml 400MG/250ml NSorD5 KIT/BAG IV ONE (16:36)
[2022-10-21] MEDS: InsuLIN REG 1unit/0.01ml Soln (100units/ml) SC SCH ×2 (17:19→20:34)
[2022-10-21] MEDS: PROPOFOL 100 ML IV SCH ×2 (18:14→21:37)
[2022-10-21 18:36] VITALS: BP 159/69
[2022-10-21 22:10] VITALS: BP 133/64
[2022-10-22] VITALS (31 sets, daily range): BP systolic 81–128; BP diastolic 52–78
[2022-10-22] MEDS: ACCU-CHEK COMFORT CURVE STRIP VI SCH ×7 (00:18→23:43)
[2022-10-22] MEDS: InsuLIN REG 1unit/0.01ml Soln (100units/ml) SC SCH ×7 (00:31→23:48)
[2022-10-22] MEDS: EPINEPHrine HCL 250 ML IV SCH ×3 (01:25→16:50)
[2022-10-22] MEDS: MIDAZOLAM DRIP 50 mg/50mL 50 ML IV SCH ×6 (01:25→21:17)
[2022-10-22] MEDS: SODIUM CHLORIDE 0.9% 1,000 ML IV SCH ×2 (05:55→13:35)
[2022-10-22 06:37] LABS: Basophils # (auto) 0.1 10 ^3/uL (0-0.2); Eosinophils # (auto) 0.1 10 ^3/uL (0-0.8); Hematocrit 21.2 % (41.0-53.0); Lymphocytes # (auto) 1.2 10 ^3/uL (0.4-5.4); Monocytes # (auto) 1.2 10 ^3/uL (0-1.3); Nucleated Red Blood Cells % 0.3 %
[2022-10-22 06:39] LABS: Basophils % (auto) 0.7 % (0.0-2.0); Eosinophils % (auto) 0.7 % (0.0-7.0); Hemoglobin 7.1 g/dL (13.5-17.5); Lymphocytes % (auto) 10.3 % (10.0-50.0); Mean Corpuscular Hemoglobin 30.6 pg (28.0-32.0); Mean Corpuscular Hgb Conc. 33.3 g/dL (32.0-36.0); Mean Corpuscular Volume 91.8 fL (80.0-100.0); Monocytes % (auto) 10.5 % (0.0-12.0); Neutrophils # (auto) 9.1 10 ^3/uL (1.6-8.6); Neutrophils % (auto) 77.8 % (37.0-80.0); Red Blood Cells 2.31 10^6/uL (4.5-5.90); Red Cell Distribution Width 14.9 % (11.8-14.3); White Blood Cell 11.7 10^3/uL (4.4-10.8)
[2022-10-22 07:00] LABS: BUN/Creatinine Ratio 24.4; Calcium 8.8 mg/dL (8.5-10.1); Potassium 4.1 mmol/L (3.5-5.1)
[2022-10-22] MEDS ORDERED: cefTRIAXone 1GM/50ML D5W 50 ML IV SCH (09:00)
[2022-10-22] MEDS ORDERED: PANTOPRAZOLE 40 MG/10 ML VIAL INJ IV SCH (10:00)
[2022-10-22] MEDS: PROPOFOL 100 ML IV SCH (10:02)
[2022-10-22] MEDS: ENOXAPARIN SOD 40 MG/0.4 ML SYRINGE SC SCH (10:47)
[2022-10-22 14:11] LABS: Albumin 2.3 g/dL (3.4-5.0); BUN/Creatinine Ratio 26.5; Potassium 4.3 mmol/L (3.5-5.1)
[2022-10-22] MEDS: VASOPRESSIN 50 UNITS in D5W 5% 247.5 ML IV SCH (14:15)
[2022-10-22 14:16] LABS: Bilirubin, Total 0.2 mg/dL (0.2-1.0); Total Protein 5.3 g/dL (6.4-8.2)
[2022-10-22] MEDS ORDERED: ACETAMINOPHEN 650 MG RECT SUPP PR PRN (15:45)
[2022-10-22] MEDS ORDERED: HEPARIN DRIP/D5W 100UNITS/ML 250 ML IV SCH (18:30)
[2022-10-22] MEDS ORDERED: AMIODARONE HCL 150 MG in D5W 5% 100 ML IV ONE (18:30)
[2022-10-22] MEDS ORDERED: HEPARIN SODIUM (PORCINE) 5000 UNITS/ML 1ML VIAL IV ONE (18:30)
[2022-10-22] MEDS ORDERED: AMIODARONE 450mg/250ml AE 250 ML IV SCH (19:00)
[2022-10-22 19:43] LABS: Basophils # (auto) 0.1 10 ^3/uL (0-0.2); Eosinophils # (auto) 0.1 10 ^3/uL (0-0.8); Lymphocytes # (auto) 1.1 10 ^3/uL (0.4-5.4); Monocytes # (auto) 1.3 10 ^3/uL (0-1.3); Red Blood Cells 2.21 10^6/uL (4.5-5.90); Red Cell Distribution Width 15.1 % (11.8-14.3)
[2022-10-22 19:45] LABS: Basophils % (auto) 0.5 % (0.0-2.0); Eosinophils % (auto) 0.7 % (0.0-7.0); Hematocrit 20.8 % (41.0-53.0); Lymphocytes % (auto) 8.7 % (10.0-50.0); Mean Corpuscular Hemoglobin 30.4 pg (28.0-32.0); Mean Corpuscular Hgb Conc. 32.3 g/dL (32.0-36.0); Monocytes % (auto) 10.7 % (0.0-12.0); Neutrophils # (auto) 9.7 10 ^3/uL (1.6-8.6); Neutrophils % (auto) 79.4 % (37.0-80.0); Nucleated Red Blood Cells % 0.4 %; White Blood Cell 12.3 10^3/uL (4.4-10.8)
[2022-10-22 19:54] LABS: Hemoglobin 6.7 g/dL (13.5-17.5)
[2022-10-22 19:58] LABS: INR 1.01 (0.9-1.15); Partial Thromboplastin Time 25.7 sec (24.6-33.4)
[2022-10-22] MEDS: PIPERACILLIN-TAZOB 3.375GM 100 ML IV SCH (20:20)
[2022-10-22] MEDS: DOPamine 1600MCG/ML D5W 250 ML IV SCH (22:02)
[2022-10-22] MEDS: PANTOPRAZOLE 40 MG/10 ML VIAL INJ IV SCH (23:45)
[2022-10-23] VITALS (104 sets, daily range): BP systolic 87–128; BP diastolic 49–82
[2022-10-23] MEDS: AMIODARONE 450mg/250ml AE 250 ML IV SCH ×2 (01:06→02:12)
[2022-10-23] MEDS: PIPERACILLIN-TAZOB 3.375GM 100 ML IV SCH ×5 (01:07→23:35)
[2022-10-23] MEDS: MIDAZOLAM DRIP 50 mg/50mL 50 ML IV SCH ×3 (01:59→20:25)
[2022-10-23] MEDS: PROPOFOL 100 ML IV SCH ×3 (03:58→20:24)
[2022-10-23] MEDS: SODIUM CHLORIDE 0.9% 1,000 ML IV SCH ×4 (03:59→21:30)
[2022-10-23] MEDS: ACCU-CHEK COMFORT CURVE STRIP VI SCH ×6 (04:20→23:35)
[2022-10-23] MEDS: InsuLIN REG 1unit/0.01ml Soln (100units/ml) SC SCH ×6 (04:27→23:36)
[2022-10-23] MEDS: DOPamine 1600MCG/ML D5W 250 ML IV SCH ×2 (08:56→19:50)
[2022-10-23 09:40] LABS: Basophils # (auto) 0.1 10 ^3/uL (0-0.2); Basophils % (auto) 0.7 % (0.0-2.0); Eosinophils # (auto) 0.1 10 ^3/uL (0-0.8); Hematocrit 24.9 % (41.0-53.0); Hemoglobin 7.8 g/dL (13.5-17.5); Lymphocytes # (auto) 0.8 10 ^3/uL (0.4-5.4); Lymphocytes % (auto) 8.3 % (10.0-50.0); Mean Corpuscular Hemoglobin 29.3 pg (28.0-32.0); Mean Corpuscular Hgb Conc. 31.4 g/dL (32.0-36.0); Mean Corpuscular Volume 93.3 fL (80.0-100.0); Monocytes # (auto) 1.1 10 ^3/uL (0-1.3); Monocytes % (auto) 11.4 % (0.0-12.0); Neutrophils # (auto) 7.8 10 ^3/uL (1.6-8.6); Neutrophils % (auto) 78.6 % (37.0-80.0); Nucleated Red Blood Cells % 0.2 %; Red Blood Cells 2.67 10^6/uL (4.5-5.90); Red Cell Distribution Width 16.4 % (11.8-14.3)
[2022-10-23 09:52] LABS: Albumin 2.2 g/dL (3.4-5.0); Bilirubin, Direct 0.1 mg/dL (0-0.2); Calcium 8.1 mg/dL (8.5-10.1); Potassium 4.2 mmol/L (3.5-5.1)
[2022-10-23 10:01] LABS: BUN/Creatinine Ratio 30.8; Bilirubin, Total 0.3 mg/dL (0.2-1.0); Total Protein 5.3 g/dL (6.4-8.2)
[2022-10-23] MEDS: PANTOPRAZOLE 40 MG/10 ML VIAL INJ IV SCH ×2 (10:29→22:39)
[2022-10-23] MEDS ORDERED: VANCOMYCIN PER PHARMACY 0 MG IV SCH (10:30)
[2022-10-23] MEDS: ENOXAPARIN SOD 40 MG/0.4 ML SYRINGE SC SCH (10:30)
[2022-10-23] MEDS: VANCOMYCIN 1GM/250ML 250 ML IV SCH (10:31)
[2022-10-23] MEDS: VASOPRESSIN 50 UNITS in D5W 5% 247.5 ML IV SCH (14:15)
[2022-10-23 19:26] LABS: Magnesium 2.7 mg/dL (1.6-2.6)
[2022-10-24] VITALS (104 sets, daily range): BP systolic 89–122; BP diastolic 49–68
[2022-10-24] MEDS: VASOPRESSIN 50 UNITS in D5W 5% 247.5 ML IV SCH (02:20)
[2022-10-24] MEDS: PROPOFOL 100 ML IV SCH ×2 (02:20→12:35)
[2022-10-24] MEDS: VANCOMYCIN 1GM/250ML 250 ML IV SCH ×2 (02:32→18:37)
[2022-10-24] MEDS: MIDAZOLAM DRIP 50 mg/50mL 50 ML IV SCH ×2 (02:47→11:38)
[2022-10-24] MEDS: InsuLIN REG 1unit/0.01ml Soln (100units/ml) SC SCH ×5 (04:00→20:00)
[2022-10-24] MEDS: ACCU-CHEK COMFORT CURVE STRIP VI SCH ×5 (04:00→20:49)
[2022-10-24] MEDS: SODIUM CHLORIDE 0.9% 1,000 ML IV SCH ×2 (05:30→08:01)
[2022-10-24] MEDS: PIPERACILLIN-TAZOB 3.375GM 100 ML IV SCH ×3 (06:00→18:28)
[2022-10-24 06:04] LABS: Hemoglobin 7.6 g/dL (13.5-17.5)
[2022-10-24 06:17] LABS: Albumin 1.9 g/dL (3.4-5.0); Anion Gap 10 (5-15); BUN/Creatinine Ratio 27.8; Blood Urea Nitrogen 22 mg/dL (7-18); Calcium 7.9 mg/dL (8.5-10.1); Carbon Dioxide 21 mmol/L (21-32); Chloride 113 mmol/L (98-107); GFR African American 127 mL/min; GFR Non-African American 105 mL/min; Glucose 109 mg/dL (74-106); Sodium 144 mmol/L (136-145)
[2022-10-24 06:19] LABS: Alanine Aminotransferase 400 U/L (16-61); Alkaline Phosphatase 223 U/L (45-117); Aspartate Aminotransferase 149 U/L (15-37); Bilirubin, Total 0.5 mg/dL (0.2-1.0); Hematocrit 24.2 % (41.0-53.0); Mean Corpuscular Hemoglobin 29.5 pg (28.0-32.0); Mean Corpuscular Hgb Conc. 31.6 g/dL (32.0-36.0); Mean Corpuscular Volume 93.3 fL (80.0-100.0); Phosphorus 2.5 mg/dL (2.5-4.90); Red Blood Cells 2.59 10^6/uL (4.5-5.90); Red Cell Distribution Width 16.3 % (11.8-14.3); Total Protein 5.5 g/dL (6.4-8.2); White Blood Cell 12.9 10^3/uL (4.4-10.8)
[2022-10-24 06:33] LABS: Basophils % (manual) 0 (0.0-2.0); Blast Cells 0; Metamyelocytes % 0; Myelocytes % 0; Promyelocytes % 0; Reactive Lymphocytes 0
[2022-10-24] MEDS: DOPamine 1600MCG/ML D5W 250 ML IV SCH ×2 (06:44→17:38)
[2022-10-24] MEDS: AMIODARONE 450mg/250ml AE 250 ML IV SCH ×2 (07:00→22:00)
[2022-10-24] MEDS: PANTOPRAZOLE 40 MG/10 ML VIAL INJ IV SCH ×2 (08:01→22:37)
[2022-10-24] MEDS: ENOXAPARIN SOD 40 MG/0.4 ML SYRINGE SC SCH (08:01)
[2022-10-24 08:53] LABS: Band Neutrophils % (manual) 3; Eosinophils % (manual) 1 (0-7); Lymphocytes % (manual) 17 (10.0-50.0); Monocytes % (manual) 18 (0-12)
[2022-10-24] MEDS: EPINEPHrine HCL 250 ML IV SCH (13:15)
[2022-10-25] VITALS (94 sets, daily range): BP systolic 95–135; BP diastolic 48–75
[2022-10-25] MEDS: PIPERACILLIN-TAZOB 3.375GM 100 ML IV SCH ×4 (00:14→18:03)
[2022-10-25] MEDS: SODIUM CHLORIDE 0.9% 1,000 ML IV SCH ×3 (01:00→13:43)
[2022-10-25] MEDS: PROPOFOL 100 ML IV SCH (03:13)
[2022-10-25] MEDS: ACCU-CHEK COMFORT CURVE STRIP VI SCH ×6 (04:00→20:59)
[2022-10-25] MEDS: InsuLIN REG 1unit/0.01ml Soln (100units/ml) SC SCH ×6 (04:00→20:00)
[2022-10-25] MEDS: DOPamine 1600MCG/ML D5W 250 ML IV SCH ×2 (04:32→15:26)
[2022-10-25 05:27] LABS: Basophils # (auto) 0.1 10 ^3/uL (0-0.2); Eosinophils # (auto) 0.2 10 ^3/uL (0-0.8); Hemoglobin 7.5 g/dL (13.5-17.5); Monocytes # (auto) 1.1 10 ^3/uL (0-1.3); Red Cell Distribution Width 15.7 % (11.8-14.3)
[2022-10-25 05:28] LABS: Basophils % (auto) 1.2 % (0.0-2.0); Eosinophils % (auto) 2.1 % (0.0-7.0); Hematocrit 23.2 % (41.0-53.0); Lymphocytes % (auto) 9.5 % (10.0-50.0); Mean Corpuscular Hemoglobin 30.1 pg (28.0-32.0); Mean Corpuscular Hgb Conc. 32.3 g/dL (32.0-36.0); Mean Corpuscular Volume 93.3 fL (80.0-100.0); Monocytes % (auto) 10.8 % (0.0-12.0); Neutrophils # (auto) 7.8 10 ^3/uL (1.6-8.6); Neutrophils % (auto) 76.4 % (37.0-80.0); Nucleated Red Blood Cells % 0.2 %; Red Blood Cells 2.49 10^6/uL (4.5-5.90); White Blood Cell 10.2 10^3/uL (4.4-10.8)
[2022-10-25 07:48] LABS: Albumin 1.9 g/dL (3.4-5.0); Anion Gap 13 (5-15); BUN/Creatinine Ratio 23.8; Bilirubin, Direct 0.1 mg/dL (0-0.2); Blood Urea Nitrogen 20 mg/dL (7-18); Calcium 8.1 mg/dL (8.5-10.1); Carbon Dioxide 17 mmol/L (21-32); Chloride 113 mmol/L (98-107); GFR African American 118 mL/min; GFR Non-African American 98 mL/min; Glucose 91 mg/dL (74-106); Potassium 3.9 mmol/L (3.5-5.1); Sodium 143 mmol/L (136-145)
[2022-10-25 07:51] LABS: Alanine Aminotransferase 294 U/L (16-61); Alkaline Phosphatase 210 U/L (45-117); Aspartate Aminotransferase 77 U/L (15-37); Bilirubin, Total 0.4 mg/dL (0.2-1.0)
[2022-10-25] MEDS: PANTOPRAZOLE 40 MG/10 ML VIAL INJ IV SCH ×2 (08:28→21:41)
[2022-10-25] MEDS: ENOXAPARIN SOD 40 MG/0.4 ML SYRINGE SC SCH (08:28)
[2022-10-25] MEDS: AMIODARONE 450mg/250ml AE 250 ML IV SCH (13:00)
[2022-10-25] MEDS: EPINEPHrine HCL 250 ML IV SCH (13:15)
[2022-10-25] MEDS: MIDAZOLAM DRIP 50 mg/50mL 50 ML IV SCH (13:15)
[2022-10-25] MEDS: VASOPRESSIN 50 UNITS in D5W 5% 247.5 ML IV SCH (13:44)
[2022-10-25] MEDS ORDERED: VANCOMYCIN 1GM/250ML 250 ML IV SCH (16:00)
[2022-10-25] MEDS: MORPHINE SULFATE INJ 2 MG/ml SYRG IV PRN (17:34)
[2022-10-25] MEDS ORDERED: LIDOCAINE 2% JELLY 11ml (GLYDO) UR ONE (18:15)
[2022-10-26] VITALS (38 sets, daily range): BP systolic 97–136; BP diastolic 47–73
[2022-10-26] MEDS: PIPERACILLIN-TAZOB 3.375GM 100 ML IV SCH ×4 (00:05→18:06)
[2022-10-26] MEDS: ACCU-CHEK COMFORT CURVE STRIP VI SCH ×6 (00:05→21:07)
[2022-10-26] MEDS ORDERED: AMIODARONE HCL 200 MG TAB PO ONE ×2 (00:30→14:00)
[2022-10-26] MEDS: DOPamine 1600MCG/ML D5W 250 ML IV SCH ×2 (02:20→13:14)
[2022-10-26] MEDS: AMIODARONE 450mg/250ml AE 250 ML IV SCH (03:52)
[2022-10-26] MEDS: InsuLIN REG 1unit/0.01ml Soln (100units/ml) SC SCH ×6 (04:00→21:10)
[2022-10-26] MEDS ORDERED: VANCOMYCIN 1GM/250ML 250 ML IV SCH (04:00)
[2022-10-26 05:32] LABS: Albumin 1.9 g/dL (3.4-5.0); Bilirubin, Direct 0.1 mg/dL (0-0.2); Bilirubin, Total 0.4 mg/dL (0.2-1.0); Total Protein 5.1 g/dL (6.4-8.2)
[2022-10-26 07:39] LABS: Hepatitis A Ab IgM Negative
[2022-10-26 07:40] LABS: Hepatitis B Core IgM Negative; Hepatitis C Antibody Negative (Negative)
[2022-10-26] MEDS: SODIUM CHLORIDE 0.9% 1,000 ML IV SCH ×4 (08:37→21:30)
[2022-10-26] MEDS: ENOXAPARIN SOD 40 MG/0.4 ML SYRINGE SC SCH (08:44)
[2022-10-26] MEDS: PANTOPRAZOLE 40 MG/10 ML VIAL INJ IV SCH ×2 (08:44→22:47)
[2022-10-26] MEDS: MIDAZOLAM DRIP 50 mg/50mL 50 ML IV SCH (13:15)
[2022-10-26] MEDS: EPINEPHrine HCL 250 ML IV SCH (13:15)
[2022-10-26] MEDS ORDERED: DIGOXIN 0.25 MG TAB PO ONE (14:00)
[2022-10-26] MEDS: VASOPRESSIN 50 UNITS in D5W 5% 247.5 ML IV SCH (14:01)
[2022-10-26] MEDS: MORPHINE SULFATE INJ 2 MG/ml SYRG IV PRN (20:25)
[2022-10-26] MEDS: AMIODARONE HCL 200 MG TAB PO SCH (22:48)
[2022-10-27] MEDS: PIPERACILLIN-TAZOB 3.375GM 100 ML IV SCH ×4 (02:00→20:32)
[2022-10-27] MEDS: InsuLIN REG 1unit/0.01ml Soln (100units/ml) SC SCH ×6 (02:26→20:30)
[2022-10-27] MEDS: ACCU-CHEK COMFORT CURVE STRIP VI SCH ×6 (04:02→20:00)
[2022-10-27 05:00] VITALS: BP 108/49
[2022-10-27] MEDS: SODIUM CHLORIDE 0.9% 1,000 ML IV SCH ×2 (05:39→13:30)
[2022-10-27 09:00] VITALS: BP 111/58
[2022-10-27] MEDS: PANTOPRAZOLE 40 MG/10 ML VIAL INJ IV SCH ×2 (10:00→22:07)
[2022-10-27] MEDS: ENOXAPARIN SOD 40 MG/0.4 ML SYRINGE SC SCH (10:00)
[2022-10-27] MEDS: AMIODARONE HCL 200 MG TAB PO SCH ×2 (10:00→22:07)
[2022-10-27 13:00] VITALS: BP 117/69
[2022-10-27 17:00] VITALS: BP 137/53
[2022-10-27 22:00] VITALS: BP 126/60
[2022-10-28] MEDS: InsuLIN REG 1unit/0.01ml Soln (100units/ml) SC SCH ×7 (00:13→23:17)
[2022-10-28] MEDS: ACCU-CHEK COMFORT CURVE STRIP VI SCH ×7 (00:14→23:06)
[2022-10-28] MEDS: PIPERACILLIN-TAZOB 3.375GM 100 ML IV SCH ×3 (02:39→13:43)
[2022-10-28 05:00] VITALS: BP 135/87
[2022-10-28 08:00] VITALS: BP 111/72
[2022-10-28] MEDS: PANTOPRAZOLE 40 MG/10 ML VIAL INJ IV SCH ×2 (09:51→23:04)
[2022-10-28] MEDS: ENOXAPARIN SOD 40 MG/0.4 ML SYRINGE SC SCH (09:51)
[2022-10-28] MEDS: AMIODARONE HCL 200 MG TAB PO SCH ×2 (09:51→23:05)
[2022-10-28 10:51] LABS: Basophils # (auto) 0.1 10 ^3/uL (0-0.2); Eosinophils # (auto) 0.3 10 ^3/uL (0-0.8); Hemoglobin 8.5 g/dL (13.5-17.5); Mean Corpuscular Hgb Conc. 32.3 g/dL (32.0-36.0); Monocytes # (auto) 0.8 10 ^3/uL (0-1.3); Neutrophils # (auto) 4.9 10 ^3/uL (1.6-8.6)
[2022-10-28 10:53] LABS: Basophils % (auto) 1.3 % (0.0-2.0); Eosinophils % (auto) 3.8 % (0.0-7.0); Hematocrit 26.4 % (41.0-53.0); Lymphocytes % (auto) 14.2 % (10.0-50.0); Mean Corpuscular Hemoglobin 28.9 pg (28.0-32.0); Mean Corpuscular Volume 89.7 fL (80.0-100.0); Monocytes % (auto) 11.1 % (0.0-12.0); Neutrophils % (auto) 69.6 % (37.0-80.0); Red Blood Cells 2.94 10^6/uL (4.5-5.90); Red Cell Distribution Width 15.4 % (11.8-14.3)
[2022-10-28 11:06] LABS: BUN/Creatinine Ratio 19.4; Calcium 8.8 mg/dL (8.5-10.1); Potassium 3.6 mmol/L (3.5-5.1)
[2022-10-28 12:00] VITALS: BP 117/69
[2022-10-28 16:00] VITALS: BP 112/60
[2022-10-28 22:00] VITALS: BP 117/69
[2022-10-28] MEDS ORDERED: INSULIN LANTUS (GLARGINE) 1 /0.01ml (100units/ml) SC SCH (22:00)
[2022-10-28] MEDS: CARVEDILOL 3.125 MG TAB PO SCH (23:05)
[2022-10-28] MEDS: APIXABAN 5 MG TAB PO SCH (23:05)
[2022-10-29] MEDS: ACCU-CHEK COMFORT CURVE STRIP VI SCH ×4 (04:24→17:15)
[2022-10-29] MEDS: InsuLIN REG 1unit/0.01ml Soln (100units/ml) SC SCH ×4 (04:26→17:16)
[2022-10-29 05:00] VITALS: BP 103/69
[2022-10-29 08:19] VITALS: BP 141/51
[2022-10-29] MEDS: PANTOPRAZOLE 40 MG/10 ML VIAL INJ IV SCH (09:31)
[2022-10-29] MEDS: CARVEDILOL 3.125 MG TAB PO SCH (09:32)
[2022-10-29] MEDS: APIXABAN 5 MG TAB PO SCH (09:32)
[2022-10-29] MEDS: AMIODARONE HCL 200 MG TAB PO SCH (09:32)
[2022-10-29] MEDS ORDERED: APIX5TAB PO ×2 (12:05)
[2022-10-29] MEDS ORDERED: GABA300C10 PO ×2 (12:18)
[2022-10-29] MEDS ORDERED: LANC-347 XX ×2 (12:18)
[2022-10-29] MEDS ORDERED: BLOO1KIT60 XX ×2 (12:18)
[2022-10-29] MEDS ORDERED: CARV3.1240 PO ×2 (12:18)
[2022-10-29] MEDS ORDERED: INSUINJ37 SC ×2 (12:18)
[2022-10-29] MEDS ORDERED: PANT40T PO ×2 (12:18)
[2022-10-29] MEDS ORDERED: AMIO200T33 PO ×2 (12:20)
[2022-10-29 12:24] VITALS: BP 108/65
[2022-10-29 13:40] VITALS: BP 108/65
[2022-10-29 16:18] VITALS: BP 127/69
== END 2022-10-29 18:00 | disposition home health service (06) | DRG 196 ==
LOC: EDBD 11:54 → ER 11:57 → TELE 13:15 → DOU IN ICU 10-22 15:35 → NUR 10-22 15:47 → ICU CENTRL 10-22 17:20 → TELE-WESTW 10-27 00:15
PROVIDERS: ADMIT Nurse Practitioner Family; ATTEND Internal Medicine
PROC: 5A12012 Performance of Cardiac Output, Single, Manual (ICD-10-PCS; principal; 2022-10-21)
PROC: 5A1945Z Respiratory Ventilation, 24-96 Consecutive Hours (ICD-10-PCS; 2022-10-21)
PROC: 0BH17EZ Insertion of Endotracheal Airway into Trachea, Via Natural or Artificial Opening (ICD-10-PCS; 2022-10-21)
PROC: 30233N1 Transfusion of Nonautologous Red Blood Cells into Peripheral Vein, Percutaneous Approach (ICD-10-PCS; 2022-10-22)
DX: I46.9 Cardiac arrest, cause unspecified (principal); J96.01 Acute respiratory failure with hypoxia; K72.00 Acute and subacute hepatic failure without coma; E11.10 Type 2 diabetes mellitus with ketoacidosis without coma; J18.9 Pneumonia, unspecified organism; G93.41 Metabolic encephalopathy; I48.20 Chronic atrial fibrillation, unspecified; N17.9 Acute kidney failure, unspecified; E87.5 Hyperkalemia; I47.20 Ventricular tachycardia, unspecified; Z20.822 Contact with and (suspected) exposure to COVID-19; Z68.31 Body mass index [BMI] 31.0-31.9, adult; E11.22 Type 2 diabetes mellitus with diabetic chronic kidney disease; D63.8 Anemia in other chronic diseases classified elsewhere; E66.9 Obesity, unspecified; E78.5 Hyperlipidemia, unspecified; E87.1 Hypo-osmolality and hyponatremia; F17.210 Nicotine dependence, cigarettes, uncomplicated; I12.9 Hypertensive chronic kidney disease with stage 1 through stage 4 chronic kidney disease, or unspecified chronic kidney disease; E11.65 Type 2 diabetes mellitus with hyperglycemia; J98.11 Atelectasis; N18.9 Chronic kidney disease, unspecified; Z79.4 Long term (current) use of insulin; Z80.9 Family history of malignant neoplasm, unspecified; Z83.3 Family history of diabetes mellitus; Z86.79 Personal history of other diseases of the circulatory system
CPT/HCPCS: 31500; 36415; 36556; 36600; 71045; 76705; 80048; 80053; 80061; 80069; 80074; 80076; 80202; 80307; 80320; 81001; 82010; 82248; 82270; 82805; 82962; 83605; 83735; 83880; 84100; 84132; 84443; 84484; 85007; 85025; 85027; 85379; 85610; 85730; 86850; 86900; 86901; 86920; 87040; 87081; 87426; 92610; 92950; 93005; 93306; 94002; 94003; 94640; 96361; 96365; 96375; 97163; 99291; C9113; G0378; J0171; J0696; J1815; J2250; J2543; J2704; J7060

== ENCOUNTER 2022-11-01 16:26 | Inpatient (IN) | payer MEDICAID ==
[~2022-11-01] VITALS: Ht 180.3 cm; Wt 97.7 kg
[~2022-11-01 16:26] MED LIST changes: +APIX5TAB PO; -GLIM4TAB42 PO; -GLIP10TA9 PO
[2022-11-01] MEDS ORDERED: CALCIUM CHLOR(10%) 100MG/ML 10ML SYRINGE IV PRN ×2 (17:30)
[2022-11-01] MEDS ORDERED: VANCOMYCIN 1GM/250ML 250 ML IV ONE ×2 (17:30→22:45)
[2022-11-01] MEDS ORDERED: CEFEPIME 1GM/ 50ML 50 ML IV ONE (17:30)
[2022-11-01 17:33] LABS: Mean Corpuscular Hemoglobin 28.6 pg (28.0-32.0); White Blood Cell 12.3 10^3/uL (4.4-10.8)
[2022-11-01 17:35] LABS: Hematocrit 30.9 % (41.0-53.0); Hemoglobin 9.5 g/dL (13.5-17.5); Mean Corpuscular Hgb Conc. 30.7 g/dL (32.0-36.0); Red Blood Cells 3.33 10^6/uL (4.5-5.90); Red Cell Distribution Width 16.2 % (11.8-14.3)
[2022-11-01 17:42] LABS: Basophils % (manual) 0 (0.0-2.0); Blast Cells 0; Metamyelocytes % 0; Myelocytes % 0; Promyelocytes % 0
[2022-11-01] MEDS ORDERED: SODIUM CHLORIDE 0.9% 1,000 ML IV ONE ×3 (17:45→19:00)
[2022-11-01 17:51] LABS: Albumin 2.5 g/dL (3.4-5.0); BUN/Creatinine Ratio 19.9; Calcium 10.3 mg/dL (8.5-10.1)
[2022-11-01 17:54] LABS: Lactic Acid w/Reflex 8.2 mmol/L (0.4-2.0)
[2022-11-01 18:00] LABS: Bilirubin, Total 1.8 mg/dL (0.2-1.0); Total Protein 6.7 g/dL (6.4-8.2)
[2022-11-01 18:10] LABS: Band Neutrophils % (manual) 15; Eosinophils % (manual) 1 (0-7); Lymphocytes % (manual) 10 (10.0-50.0); Monocytes % (manual) 6 (0-12); Reactive Lymphocytes 1
[2022-11-01 18:42] VITALS: BP 79/41
[2022-11-01] MEDS ORDERED: InsuLIN REG 1unit/0.01ml Soln (100units/ml) IV ONE (18:45)
[2022-11-01] MEDS ORDERED: ALBUTEROL SULF 2.5 MG/0.5ML(0.5%) NEB SOLN NEB ONE (18:45)
[2022-11-01] MEDS ORDERED: SODIUM BICARBONATE 8.4 % INJ 50ML VIAL IV ONE (18:45)
[2022-11-01] MEDS ORDERED: SODIUM CHLORIDE 0.9% 2,000 ML IV ONE (19:00)
[2022-11-01 20:44] VITALS: BP 86/59
[2022-11-01] MEDS ORDERED: DOCUSATE SOD 100 MG CAP PO PRN (21:00)
[2022-11-01] MEDS ORDERED: HYDROcodone-ACET 5/325MG TAB PO PRN (21:00)
[2022-11-01] MEDS ORDERED: MORPHINE SULFATE INJ 2 MG/ml SYRG IV PRN (21:00)
[2022-11-01] MEDS ORDERED: NITROGLYCERIN 0.4 MG SL TAB SL PRN (21:00)
[2022-11-01] MEDS ORDERED: ACETAMINOPHEN 325 MG TAB PO PRN (21:00)
[2022-11-01] MEDS ORDERED: DEXTROSE (50%) 50ML SYRG IV PRN (21:00)
[2022-11-01] MEDS ORDERED: ONDANSETRON HCL 4 MG/2 ML VIAL IV PRN (21:00)
[2022-11-01] MEDS ORDERED: VANCOMYCIN PER PHARMACY 0 MG IV SCH (21:30)
[2022-11-01 21:46] LABS: BUN/Creatinine Ratio 21.6; Calcium 8.9 mg/dL (8.5-10.1)
[2022-11-01 21:51] LABS: Potassium 5.8 mmol/L (3.5-5.1)
[2022-11-01] MEDS: NOREPINEPHRINE 8 MG/250ML KIT 250 ML IV SCH (22:03)
[2022-11-01] MEDS: InsuLIN REG 1unit/0.01ml Soln (100units/ml) SC SCH (22:26)
[2022-11-01] MEDS: ACCU-CHEK COMFORT CURVE STRIP VI SCH (22:26)
[2022-11-01 22:58] VITALS: BP 99/51
[2022-11-02] VITALS (10 sets, daily range): BP systolic 86–118; BP diastolic 41–66
[2022-11-02] MEDS: GABAPENTIN 300 MG CAP PO SCH ×3 (06:11→23:02)
[2022-11-02] MEDS: InsuLIN REG 1unit/0.01ml Soln (100units/ml) SC SCH ×4 (06:12→22:00)
[2022-11-02] MEDS: ACCU-CHEK COMFORT CURVE STRIP VI SCH ×4 (06:13→22:00)
[2022-11-02 06:47] LABS: Basophils # (auto) 0.1 10 ^3/uL (0-0.2); Basophils % (auto) 0.5 % (0.0-2.0); Eosinophils # (auto) 0 10 ^3/uL (0-0.8); Eosinophils % (auto) 0.1 % (0.0-7.0); Hematocrit 27.2 % (41.0-53.0); Hemoglobin 8.4 g/dL (13.5-17.5); Lymphocytes # (auto) 1.3 10 ^3/uL (0.4-5.4); Mean Corpuscular Hemoglobin 27.8 pg (28.0-32.0); Mean Corpuscular Hgb Conc. 30.9 g/dL (32.0-36.0); Mean Corpuscular Volume 89.8 fL (80.0-100.0); Monocytes # (auto) 1.3 10 ^3/uL (0-1.3); Neutrophils # (auto) 15.7 10 ^3/uL (1.6-8.6); Neutrophils % (auto) 85.4 % (37.0-80.0); Nucleated Red Blood Cells % 0.4 %; Red Blood Cells 3.02 10^6/uL (4.5-5.90); Red Cell Distribution Width 16.2 % (11.8-14.3); White Blood Cell 18.4 10^3/uL (4.4-10.8)
[2022-11-02 06:52] LABS: Albumin 2.3 g/dL (3.4-5.0); Calcium 8.8 mg/dL (8.5-10.1)
[2022-11-02 07:14] LABS: Bilirubin, Total 1.4 mg/dL (0.2-1.0); Total Protein 5.7 g/dL (6.4-8.2)
[2022-11-02 07:51] LABS: Potassium 6.2 mmol/L (3.5-5.1)
[2022-11-02 07:57] LABS: BUN/Creatinine Ratio 19.3
[2022-11-02 07:58] LABS: Free T3 1.27 pg/mL (2.3-4.2); Free T4 (Free Thyroxine) 1.05 ng/dL (0.89-1.76)
[2022-11-02] MEDS ORDERED: ALBUTEROL SULF 2.5 MG/0.5ML(0.5%) NEB SOLN NEB ONE ×2 (09:45→13:00)
[2022-11-02] MEDS ORDERED: InsuLIN REG 1unit/0.01ml Soln (100units/ml) IV ONE ×2 (09:45→13:00)
[2022-11-02] MEDS ORDERED: DEXTROSE (50%) 50ML SYRG IV ONE (09:45)
[2022-11-02] MEDS ORDERED: PANTOPRAZOLE 40 MG/10 ML VIAL INJ IV SCH (10:00)
[2022-11-02] MEDS ORDERED: ATORVASTATIN 20 MG TAB PO SCH (10:00)
[2022-11-02] MEDS: ENOXAPARIN SOD 40 MG/0.4 ML SYRINGE SC SCH (10:40)
[2022-11-02] MEDS: ASPirin-EC 81 mg tab PO SCH (10:41)
[2022-11-02] MEDS ORDERED: cefTRIAXone 1GM/50ML D5W 50 ML IV ONE (12:45)
[2022-11-02] MEDS ORDERED: CALCIUM GLUC 1,000mg/50ml-NS 50 ML IV ONE (13:00)
[2022-11-02] MEDS: ALBUTEROL SULF 2.5 MG/0.5ML(0.5%) NEB SOLN NEB SCH ×3 (14:00→22:22)
[2022-11-02] MEDS: IPRATROPIUM BROM 0.5 MG/2.5ML INH SOL NEB SCH ×3 (14:00→22:22)
[2022-11-02] MEDS: DOPamine 1600MCG/ML D5W 250 ML IV SCH (16:35)
[2022-11-02] MEDS: SODIUM BICARBONATE 50ML VIAL 150 ML in D5W 5% 1,000 ML IV SCH (16:42)
[2022-11-02] MEDS: AZITHROMYCIN 500MG/ 250ML 250 ML IV SCH (16:42)
[2022-11-02] MEDS: NOREPINEPHRINE 8 MG/250ML KIT 250 ML IV SCH (19:00)
[2022-11-02] MEDS ORDERED: FUROSEMIDE 100 MG/10ML VIAL IV ONE (20:45)
[2022-11-02] MEDS ORDERED: VANCOMYCIN 1GM/250ML 250 ML IV ONE (21:00)
[2022-11-02] MEDS: FAMOTIDINE 20 MG TAB PO SCH (22:00)
[2022-11-02] MEDS: AMITRIPTYLINE HCL 10 MG TAB PO SCH (22:00)
[2022-11-02] MEDS ORDERED: AMITRIPTYLINE HCL 25 MG TAB ONE (22:56)
[2022-11-02] MEDS: methylPREDNISolone SOD SUCC 40 MG/ML VL IV SCH (23:00)
[2022-11-03 00:25] VITALS: BP 121/56
[2022-11-03] MEDS ORDERED: SODIUM ZIRCONIUM CYCL 10 GM PAK PO ONE (01:30)
[2022-11-03] MEDS ORDERED: SODIUM ZIRCONIUM CYCL 10 GM PAK ONE (01:33)
[2022-11-03 01:50] VITALS: BP 128/74
[2022-11-03 03:45] VITALS: BP 117/65
[2022-11-03] MEDS: SODIUM BICARBONATE 50ML VIAL 150 ML in D5W 5% 1,000 ML IV SCH ×2 (03:59→13:00)
[2022-11-03 04:30] LABS: Eosinophils # (auto) 0 10 ^3/uL (0-0.8); Lymphocytes # (auto) 0.2 10 ^3/uL (0.4-5.4); Monocytes # (auto) 0.5 10 ^3/uL (0-1.3)
[2022-11-03 04:32] LABS: Basophils # (auto) 0.1 10 ^3/uL (0-0.2); Basophils % (auto) 0.6 % (0.0-2.0); Hematocrit 27.2 % (41.0-53.0); Hemoglobin 8.5 g/dL (13.5-17.5); Lymphocytes % (auto) 1.4 % (10.0-50.0); Mean Corpuscular Hemoglobin 27.3 pg (28.0-32.0); Mean Corpuscular Hgb Conc. 31.2 g/dL (32.0-36.0); Mean Corpuscular Volume 87.4 fL (80.0-100.0); Monocytes % (auto) 3.2 % (0.0-12.0); Neutrophils # (auto) 15.1 10 ^3/uL (1.6-8.6); Neutrophils % (auto) 94.8 % (37.0-80.0); Nucleated Red Blood Cells % 0.2 %; Red Blood Cells 3.11 10^6/uL (4.5-5.90); Red Cell Distribution Width 16.6 % (11.8-14.3); White Blood Cell 15.9 10^3/uL (4.4-10.8)
[2022-11-03 05:01] LABS: Albumin 2.3 g/dL (3.4-5.0); BUN/Creatinine Ratio 17.2; Bilirubin, Direct 0.9 mg/dL (0-0.2); Potassium 5.5 mmol/L (3.5-5.1)
[2022-11-03 05:10] LABS: Bilirubin, Total 1.3 mg/dL (0.2-1.0); Total Protein 5.9 g/dL (6.4-8.2)
[2022-11-03] MEDS: GABAPENTIN 300 MG CAP PO SCH ×3 (06:00→22:14)
[2022-11-03 06:04] VITALS: BP 130/71
[2022-11-03] MEDS: ACCU-CHEK COMFORT CURVE STRIP VI SCH ×8 (07:13→22:27)
[2022-11-03] MEDS: InsuLIN REG 1unit/0.01ml Soln (100units/ml) SC SCH ×4 (07:13→22:00)
[2022-11-03] MEDS: IPRATROPIUM BROM 0.5 MG/2.5ML INH SOL NEB SCH ×4 (07:36→21:56)
[2022-11-03] MEDS: ALBUTEROL SULF 2.5 MG/0.5ML(0.5%) NEB SOLN NEB SCH ×4 (07:36→21:56)
[2022-11-03] MEDS: cefTRIAXone 1GM/50ML D5W 50 ML IV SCH (11:21)
[2022-11-03] MEDS: methylPREDNISolone SOD SUCC 40 MG/ML VL IV SCH ×2 (11:26→22:14)
[2022-11-03] MEDS: FERROUS SULFATE 325mg EC TAB PO SCH (11:26)
[2022-11-03] MEDS: ASPirin-EC 81 mg tab PO SCH (11:27)
[2022-11-03] MEDS: FAMOTIDINE 20 MG TAB PO SCH ×2 (11:27→22:00)
[2022-11-03] MEDS: ENOXAPARIN SOD 40 MG/0.4 ML SYRINGE SC SCH (11:28)
[2022-11-03] MEDS: AZITHROMYCIN 500MG/ 250ML 250 ML IV SCH (11:38)
[2022-11-03] MEDS: DOPamine 1600MCG/ML D5W 250 ML IV SCH (13:00)
[2022-11-03] MEDS ORDERED: DEXTROSE (50%) 50ML SYRG IV PRN (14:30)
[2022-11-03] MEDS ORDERED: INSULIN LANTUS (GLARGINE) 1 /0.01ml (100units/ml) SC ONE (14:30)
[2022-11-03] MEDS ORDERED: InsuLIN R (HUMAN) 100 UNITS in SODIUM CHL 0.9% 99 ML IV SCH (15:00)
[2022-11-03 15:37] LABS: Acetaminophen 4.8 ug/mL (10-30); Salicylate < 1.7 mg/dL (2.8-20.0)
[2022-11-03] MEDS ORDERED: MORPHINE SULFATE INJ 2 MG/ml SYRG IV PRN (16:00)
[2022-11-03] MEDS ORDERED: FUROSEMIDE 40 MG/4 ML VIAL IV ONE (16:15)
[2022-11-03] MEDS: NOREPINEPHRINE 8 MG/250ML KIT 250 ML IV SCH (19:30)
[2022-11-03 21:25] LABS: Urine Bacteria NONE SEEN /hpf (None Seen); Urine Blood 1+ /uL (Negative); Urine Mucus FEW (None Seen); Urine Specific Gravity 1.007 (1.001-1.035); Urine WBC 1 /hpf (0 - 3)
[2022-11-03 21:40] LABS: Alcohol, Urine < 3.0 mg/dL (0-10); Amphetamine Screen, Urine NEGATIVE (NEGATIVE); Barbiturate Scree,Urine NEGATIVE (NEGATIVE); Benzodiazephine Screen, Urine NEGATIVE (NEGATIVE); Cannabinoid Screen, Urine NEGATIVE (NEGATIVE); Cocaine Screen, Urine NEGATIVE (NEGATIVE); Opiate Scree,Urine NEGATIVE (NEGATIVE); Phencyclidine Screen, Urine NEGATIVE (NEGATIVE)
[2022-11-03] MEDS: SODIUM ZIRCONIUM CYCL 10 GM PAK PO SCH (22:14)
[2022-11-03] MEDS: AMITRIPTYLINE HCL 10 MG TAB PO SCH (22:15)
[2022-11-03] MEDS ORDERED: AMIODARONE HCL 150 MG in D5W 5% 100 ML IV ONE (23:00)
[2022-11-03] MEDS ORDERED: AMIODARONE HCL (50 MG/ ML) 3 ML VIAL IV ONE (23:13)
[2022-11-03] MEDS ORDERED: AMIODARONE 450mg/250ml AE 250 ML IV SCH (23:15)
[2022-11-04] MEDS: ACCU-CHEK COMFORT CURVE STRIP VI SCH ×12 (00:21→20:00)
[2022-11-04] MEDS ORDERED: DEXTROSE (50%) 50ML SYRG IV PRN ×4 (01:00→13:30)
[2022-11-04] MEDS ORDERED: InsuLIN R (HUMAN) 100 UNITS in SODIUM CHL 0.9% 99 ML IV SCH ×3 (01:00→12:15)
[2022-11-04 02:10] LABS: Albumin 2.1 g/dL (3.4-5.0); BUN/Creatinine Ratio 17.8; Calcium 8.5 mg/dL (8.5-10.1)
[2022-11-04 02:26] LABS: Bilirubin, Total 1.2 mg/dL (0.2-1.0); Total Protein 5.9 g/dL (6.4-8.2)
[2022-11-04] MEDS: InsuLIN REG 1unit/0.01ml Soln (100units/ml) SC SCH ×5 (03:15→20:00)
[2022-11-04 06:02] LABS: Basophils # (auto) 0.1 10 ^3/uL (0-0.2); Basophils % (auto) 0.3 % (0.0-2.0); Eosinophils # (auto) 0 10 ^3/uL (0-0.8); Hematocrit 29.5 % (41.0-53.0); Hemoglobin 9.3 g/dL (13.5-17.5); Lymphocytes # (auto) 0.5 10 ^3/uL (0.4-5.4); Lymphocytes % (auto) 2.4 % (10.0-50.0); Mean Corpuscular Hemoglobin 27.3 pg (28.0-32.0); Mean Corpuscular Hgb Conc. 31.4 g/dL (32.0-36.0); Mean Corpuscular Volume 86.8 fL (80.0-100.0); Monocytes # (auto) 0.8 10 ^3/uL (0-1.3); Monocytes % (auto) 3.7 % (0.0-12.0); Neutrophils # (auto) 20.8 10 ^3/uL (1.6-8.6); Neutrophils % (auto) 93.6 % (37.0-80.0); Nucleated Red Blood Cells % 0.3 %; Red Blood Cells 3.39 10^6/uL (4.5-5.90); Red Cell Distribution Width 16.5 % (11.8-14.3); White Blood Cell 22.2 10^3/uL (4.4-10.8)
[2022-11-04 06:12] LABS: Albumin 2.1 g/dL (3.4-5.0); Calcium 8.4 mg/dL (8.5-10.1); INR 1.99 (0.9-1.15); Partial Thromboplastin Time 34.1 sec (24.6-33.4); Potassium 3.7 mmol/L (3.5-5.1)
[2022-11-04 06:29] LABS: BUN/Creatinine Ratio 18.3; Bilirubin, Direct 0.7 mg/dL (0-0.2); Bilirubin, Total 1.2 mg/dL (0.2-1.0)
[2022-11-04] MEDS: AMIODARONE 450mg/250ml AE 250 ML IV SCH ×2 (06:34→20:15)
[2022-11-04] MEDS: GABAPENTIN 300 MG CAP PO SCH ×2 (06:34→14:10)
[2022-11-04] MEDS: SODIUM ZIRCONIUM CYCL 10 GM PAK PO SCH ×2 (06:34→14:10)
[2022-11-04 08:22] LABS: Albumin 2.2 g/dL (3.4-5.0); BUN/Creatinine Ratio 18.4; Calcium 8.4 mg/dL (8.5-10.1); Potassium 3.8 mmol/L (3.5-5.1)
[2022-11-04] MEDS: ALBUTEROL SULF 2.5 MG/0.5ML(0.5%) NEB SOLN NEB SCH ×5 (08:33→22:58)
[2022-11-04] MEDS: IPRATROPIUM BROM 0.5 MG/2.5ML INH SOL NEB SCH ×5 (08:33→22:58)
[2022-11-04 08:39] LABS: Bilirubin, Total 1.2 mg/dL (0.2-1.0); Total Protein 6.1 g/dL (6.4-8.2)
[2022-11-04] MEDS: cefTRIAXone 1GM/50ML D5W 50 ML IV SCH (09:02)
[2022-11-04 09:44] LABS: Hepatitis B Surface Antibody Negative (Negative)
[2022-11-04] MEDS ORDERED: INSULIN LANTUS (GLARGINE) 1 /0.01ml (100units/ml) SC SCH (10:00)
[2022-11-04] MEDS ORDERED: FUROSEMIDE 40 MG/4 ML VIAL IV SCH (10:00)
[2022-11-04] MEDS: AZITHROMYCIN 500MG/ 250ML 250 ML IV SCH (10:13)
[2022-11-04] MEDS: ENOXAPARIN SOD 40 MG/0.4 ML SYRINGE SC SCH (10:13)
[2022-11-04] MEDS: FAMOTIDINE 20 MG TAB PO SCH (10:14)
[2022-11-04] MEDS: methylPREDNISolone SOD SUCC 40 MG/ML VL IV SCH (10:14)
[2022-11-04] MEDS: ASPirin-EC 81 mg tab PO SCH (10:14)
[2022-11-04 10:20] LABS: Hepatitis A Total Antibody Positive (Negative)
[2022-11-04 12:44] LABS: Hepatitis C Antibody Negative (Negative)
[2022-11-04 13:17] LABS: Albumin 2.1 g/dL (3.4-5.0); Calcium 8.5 mg/dL (8.5-10.1); Potassium 3.6 mmol/L (3.5-5.1)
[2022-11-04] MEDS ORDERED: INSULIN LANTUS (GLARGINE) 1 /0.01ml (100units/ml) SC ONE (13:30)
[2022-11-04 13:35] LABS: BUN/Creatinine Ratio 18.6; Bilirubin, Total 1.2 mg/dL (0.2-1.0)
[2022-11-04 16:36] LABS: Albumin 1.9 g/dL (3.4-5.0); BUN/Creatinine Ratio 19.4; Calcium 8.6 mg/dL (8.5-10.1); Potassium 3.4 mmol/L (3.5-5.1)
[2022-11-04 16:45] LABS: Bilirubin, Total 1.2 mg/dL (0.2-1.0); Total Protein 5.7 g/dL (6.4-8.2)
[2022-11-04] MEDS: MIDODRINE HCL 10 MG TAB PO SCH (18:17)
[2022-11-04 22:55] LABS: Potassium 3.4 mmol/L (3.5-5.1)
[2022-11-04 22:56] LABS: BUN/Creatinine Ratio 18.9; Bilirubin, Total 1.1 mg/dL (0.2-1.0); Calcium 8.6 mg/dL (8.5-10.1)
[2022-11-05 00:18] VITALS: BP 101/58
[2022-11-05] MEDS: GABAPENTIN 300 MG CAP PO SCH ×4 (01:09→22:43)
[2022-11-05 01:10] LABS: Albumin 1.9 g/dL (3.4-5.0); BUN/Creatinine Ratio 20.8; Calcium 8.7 mg/dL (8.5-10.1); Potassium 3.5 mmol/L (3.5-5.1)
[2022-11-05] MEDS: methylPREDNISolone SOD SUCC 40 MG/ML VL IV SCH ×3 (01:10→22:43)
[2022-11-05] MEDS: FAMOTIDINE 20 MG TAB PO SCH ×3 (01:10→22:44)
[2022-11-05] MEDS: INSULIN LANTUS (GLARGINE) 1 /0.01ml (100units/ml) SC SCH ×3 (01:12→22:37)
[2022-11-05] MEDS: InsuLIN REG 1unit/0.01ml Soln (100units/ml) SC SCH ×6 (01:13→20:08)
[2022-11-05] MEDS: ACCU-CHEK COMFORT CURVE STRIP VI SCH ×6 (01:13→20:07)
[2022-11-05 01:19] LABS: Total Protein 5.6 g/dL (6.4-8.2)
[2022-11-05] MEDS: SODIUM ZIRCONIUM CYCL 10 GM PAK PO SCH ×2 (01:44→06:00)
[2022-11-05] MEDS: AMITRIPTYLINE HCL 10 MG TAB PO SCH (01:45)
[2022-11-05] MEDS: MIDODRINE HCL 10 MG TAB PO SCH ×3 (06:00→16:19)
[2022-11-05] MEDS: ALBUTEROL SULF 2.5 MG/0.5ML(0.5%) NEB SOLN NEB SCH ×3 (06:08→18:00)
[2022-11-05] MEDS: IPRATROPIUM BROM 0.5 MG/2.5ML INH SOL NEB SCH ×3 (06:08→17:59)
[2022-11-05 07:07] LABS: Eosinophils # (auto) 0 10 ^3/uL (0-0.8); Hemoglobin 9.2 g/dL (13.5-17.5); Lymphocytes # (auto) 0.6 10 ^3/uL (0.4-5.4); Nucleated Red Blood Cells % 0.4 %; Red Blood Cells 3.42 10^6/uL (4.5-5.90)
[2022-11-05 07:10] LABS: Basophils # (auto) 0.1 10 ^3/uL (0-0.2); Basophils % (auto) 0.3 % (0.0-2.0); Hematocrit 29.8 % (41.0-53.0); Lymphocytes % (auto) 2.9 % (10.0-50.0); Mean Corpuscular Hemoglobin 26.9 pg (28.0-32.0); Mean Corpuscular Hgb Conc. 30.9 g/dL (32.0-36.0); Mean Corpuscular Volume 87.2 fL (80.0-100.0); Monocytes % (auto) 5.2 % (0.0-12.0); Neutrophils # (auto) 17.5 10 ^3/uL (1.6-8.6); Neutrophils % (auto) 91.6 % (37.0-80.0); White Blood Cell 19.1 10^3/uL (4.4-10.8)
[2022-11-05 07:23] LABS: BUN/Creatinine Ratio 21.9; Calcium 8.9 mg/dL (8.5-10.1); Potassium 3.2 mmol/L (3.5-5.1)
[2022-11-05] MEDS: NOREPINEPHRINE 8 MG/250ML KIT 250 ML IV SCH (07:46)
[2022-11-05] MEDS: cefTRIAXone 1GM/50ML D5W 50 ML IV SCH (08:55)
[2022-11-05] MEDS: ASPirin-EC 81 mg tab PO SCH (09:40)
[2022-11-05] MEDS: AZITHROMYCIN 500MG/ 250ML 250 ML IV SCH (09:41)
[2022-11-05] MEDS: ENOXAPARIN SOD 40 MG/0.4 ML SYRINGE SC SCH (09:41)
[2022-11-05] MEDS: FUROSEMIDE 20 MG/2 ML VIAL IV SCH (09:41)
[2022-11-05] MEDS: FERROUS SULFATE 325mg EC TAB PO SCH (09:41)
[2022-11-05 10:29] LABS: Albumin 2.1 g/dL (3.4-5.0); Calcium 8.7 mg/dL (8.5-10.1); Potassium 3.2 mmol/L (3.5-5.1)
[2022-11-05 10:42] LABS: BUN/Creatinine Ratio 23.7
[2022-11-05] MEDS: AMIODARONE 450mg/250ml AE 250 ML IV SCH (11:15)
[2022-11-05] MEDS ORDERED: CARVEDILOL 3.125 MG TAB PO SCH ×2 (12:30→22:00)
[2022-11-05] MEDS ORDERED: AMIODARONE HCL 200 MG TAB PO SCH (12:30)
[2022-11-05] MEDS ORDERED: POTASSIUM EFFERVESENT TAB 25 MEQ PO ONE (13:45)
[2022-11-05 15:13] LABS: Albumin 1.9 g/dL (3.4-5.0); BUN/Creatinine Ratio 24.2; Calcium 8.9 mg/dL (8.5-10.1)
[2022-11-05 15:22] LABS: Bilirubin, Total 0.9 mg/dL (0.2-1.0); Total Protein 5.8 g/dL (6.4-8.2)
[2022-11-05 17:41] VITALS: BP 103/63
[2022-11-05] MEDS: AMITRIPTYLINE HCL 25 MG TAB PO SCH (22:43)
[2022-11-06] VITALS (8 sets, daily range): BP systolic 91–145; BP diastolic 52–78
[2022-11-06] MEDS: AMIODARONE HCL 200 MG TAB PO SCH ×3 (00:10→22:13)
[2022-11-06] MEDS: ACCU-CHEK COMFORT CURVE STRIP VI SCH ×7 (00:10→23:53)
[2022-11-06] MEDS: InsuLIN REG 1unit/0.01ml Soln (100units/ml) SC SCH ×7 (00:10→23:54)
[2022-11-06 05:52] LABS: Basophils # (auto) 0 10 ^3/uL (0-0.2); Basophils % (auto) 0.2 % (0.0-2.0); Eosinophils # (auto) 0 10 ^3/uL (0-0.8); Hemoglobin 8.6 g/dL (13.5-17.5); Lymphocytes # (auto) 0.5 10 ^3/uL (0.4-5.4); Monocytes # (auto) 0.9 10 ^3/uL (0-1.3)
[2022-11-06 05:57] LABS: Hematocrit 26.7 % (41.0-53.0); Lymphocytes % (auto) 3.9 % (10.0-50.0); Mean Corpuscular Hemoglobin 27.6 pg (28.0-32.0); Mean Corpuscular Volume 86.1 fL (80.0-100.0); Monocytes % (auto) 7.6 % (0.0-12.0); Neutrophils # (auto) 10.6 10 ^3/uL (1.6-8.6); Neutrophils % (auto) 88.3 % (37.0-80.0); Red Blood Cells 3.11 10^6/uL (4.5-5.90); Red Cell Distribution Width 16.7 % (11.8-14.3)
[2022-11-06 06:04] LABS: INR 1.53 (0.9-1.15); Partial Thromboplastin Time 29.9 sec (24.6-33.4)
[2022-11-06 06:07] LABS: BUN/Creatinine Ratio 26.9; Calcium 8.6 mg/dL (8.5-10.1); Potassium 3.2 mmol/L (3.5-5.1)
[2022-11-06] MEDS: INSULIN LANTUS (GLARGINE) 1 /0.01ml (100units/ml) SC SCH ×2 (06:10→21:36)
[2022-11-06] MEDS: GABAPENTIN 300 MG CAP PO SCH ×3 (06:15→22:23)
[2022-11-06] MEDS: MIDODRINE HCL 10 MG TAB PO SCH ×3 (06:15→18:00)
[2022-11-06] MEDS: ALBUTEROL SULF 2.5 MG/0.5ML(0.5%) NEB SOLN NEB SCH ×3 (06:28→19:44)
[2022-11-06] MEDS: IPRATROPIUM BROM 0.5 MG/2.5ML INH SOL NEB SCH ×3 (06:28→19:44)
[2022-11-06] MEDS: cefTRIAXone 1GM/50ML D5W 50 ML IV SCH (09:07)
[2022-11-06] MEDS: FAMOTIDINE 20 MG TAB PO SCH ×2 (09:09→22:23)
[2022-11-06] MEDS: methylPREDNISolone SOD SUCC 40 MG/ML VL IV SCH ×2 (09:13→22:23)
[2022-11-06] MEDS: ENOXAPARIN SOD 40 MG/0.4 ML SYRINGE SC SCH (09:13)
[2022-11-06] MEDS: AZITHROMYCIN 500MG/ 250ML 250 ML IV SCH (10:44)
[2022-11-06] MEDS: ASPirin-EC 81 mg tab PO SCH (10:45)
[2022-11-06] MEDS ORDERED: DOXY-286 PO (11:26)
[2022-11-06] MEDS: FUROSEMIDE 20 MG/2 ML VIAL IV SCH (13:48)
[2022-11-06] MEDS: CARVEDILOL 3.125 MG TAB PO SCH (22:13)
[2022-11-06] MEDS: AMITRIPTYLINE HCL 25 MG TAB PO SCH (22:23)
[2022-11-06] MEDS: APIXABAN 5 MG TAB PO SCH (22:23)
[2022-11-07] MEDS: ACCU-CHEK COMFORT CURVE STRIP VI SCH ×3 (03:29→12:19)
[2022-11-07] MEDS: InsuLIN REG 1unit/0.01ml Soln (100units/ml) SC SCH ×3 (03:45→12:37)
[2022-11-07 05:00] VITALS: BP 111/56
[2022-11-07] MEDS: INSULIN LANTUS (GLARGINE) 1 /0.01ml (100units/ml) SC SCH (06:13)
[2022-11-07] MEDS: GABAPENTIN 300 MG CAP PO SCH ×2 (06:13→14:13)
[2022-11-07] MEDS: MIDODRINE HCL 10 MG TAB PO SCH ×2 (06:13→12:18)
[2022-11-07] MEDS: IPRATROPIUM BROM 0.5 MG/2.5ML INH SOL NEB SCH ×2 (06:31→11:31)
[2022-11-07] MEDS: ALBUTEROL SULF 2.5 MG/0.5ML(0.5%) NEB SOLN NEB SCH ×2 (06:31→11:31)
[2022-11-07 07:47] LABS: Albumin 1.9 g/dL (3.4-5.0)
[2022-11-07 07:56] LABS: Bilirubin, Direct 0.3 mg/dL (0-0.2); Bilirubin, Total 0.9 mg/dL (0.2-1.0); Total Protein 5.8 g/dL (6.4-8.2)
[2022-11-07 09:00] VITALS: BP 101/51
[2022-11-07] MEDS: CARVEDILOL 3.125 MG TAB PO SCH (10:00)
[2022-11-07] MEDS: cefTRIAXone 1GM/50ML D5W 50 ML IV SCH (10:17)
[2022-11-07] MEDS: AZITHROMYCIN 500MG/ 250ML 250 ML IV SCH ×2 (10:25→10:27)
[2022-11-07] MEDS: methylPREDNISolone SOD SUCC 40 MG/ML VL IV SCH (10:25)
[2022-11-07] MEDS: AMIODARONE HCL 200 MG TAB PO SCH (10:28)
[2022-11-07] MEDS: APIXABAN 5 MG TAB PO SCH (10:28)
[2022-11-07] MEDS: FAMOTIDINE 20 MG TAB PO SCH (10:29)
[2022-11-07] MEDS: ASPirin-EC 81 mg tab PO SCH (11:00)
[2022-11-07 13:00] VITALS: BP 127/65
[2022-11-07] MEDS ORDERED: FUROSEMIDE 20 MG TAB PO SCH (18:00)
[2022-11-07] MEDS ORDERED: DOXYCYCLINE 100 MG TAB/CAP PO SCH (22:00)
[2022-11-08] MEDS ORDERED: predniSONE 20 MG TAB PO SCH (10:00)
== END 2022-11-07 15:50 | disposition home or self-care (01) | DRG 720 ==
LOC: EDBD 16:26 → ER 16:26 → TELE 21:16 → TELE-CENTR 11-05 13:50
PROVIDERS: ADMIT Nurse Practitioner Family; ATTEND Hospitalist
PROC: 5A09357 Assistance with Respiratory Ventilation, Less than 24 Consecutive Hours, Continuous Positive Airway Pressure (ICD-10-PCS; principal; 2022-11-01)
PROC: 5A09357 Assistance with Respiratory Ventilation, Less than 24 Consecutive Hours, Continuous Positive Airway Pressure (ICD-10-PCS; 2022-11-02)
DX: A41.9 Sepsis, unspecified organism (principal); J96.01 Acute respiratory failure with hypoxia; K72.00 Acute and subacute hepatic failure without coma; R65.21 Severe sepsis with septic shock; E11.10 Type 2 diabetes mellitus with ketoacidosis without coma; J18.9 Pneumonia, unspecified organism; I13.0 Hypertensive heart and chronic kidney disease with heart failure and stage 1 through stage 4 chronic kidney disease, or unspecified chronic kidney disease; E87.1 Hypo-osmolality and hyponatremia; I50.9 Heart failure, unspecified; N17.9 Acute kidney failure, unspecified; I48.91 Unspecified atrial fibrillation; Z20.822 Contact with and (suspected) exposure to COVID-19; E11.22 Type 2 diabetes mellitus with diabetic chronic kidney disease; E11.65 Type 2 diabetes mellitus with hyperglycemia; E78.5 Hyperlipidemia, unspecified; E87.5 Hyperkalemia; F17.210 Nicotine dependence, cigarettes, uncomplicated; K76.0 Fatty (change of) liver, not elsewhere classified; J44.0 Chronic obstructive pulmonary disease with (acute) lower respiratory infection; J44.1 Chronic obstructive pulmonary disease with (acute) exacerbation; J98.11 Atelectasis; N18.9 Chronic kidney disease, unspecified; Z79.4 Long term (current) use of insulin; Z82.49 Family history of ischemic heart disease and other diseases of the circulatory system; Z83.3 Family history of diabetes mellitus; Z86.74 Personal history of sudden cardiac arrest
CPT/HCPCS: 36415; 36600; 71045; 76705; 80048; 80053; 80076; 80202; 80307; 80329; 81001; 82010; 82248; 82805; 82962; 83605; 83880; 84132; 84439; 84443; 84481; 84484; 85007; 85025; 85027; 85610; 85730; 86704; 86706; 86708; 86803; 87040; 87340; 87426; 93005; 94640; 94644; 94645; 94660; 96365; 96368; 96375; 97110; 97116; 97163; 97530; C9113; G0378; J0696; J1815; J2405; J7060

== ENCOUNTER 2023-01-08 23:46 | Emergency (ER) | payer MEDICAID ==
[~2023-01-08] VITALS: Ht 170.2 cm; Wt 85.0 kg
[~2023-01-08 23:46] MED LIST changes: +DOXY-286 PO; -METF-370 PO
[2023-01-09 00:49] VITALS: BP 127/60
[2023-01-09 02:08] LABS: Basophils # (auto) 0.1 10 ^3/uL (0-0.2); Nucleated Red Blood Cells % 0.1 %; Red Cell Distribution Width 19.3 % (11.8-14.3)
[2023-01-09 02:10] LABS: Basophils % (auto) 1.7 % (0.0-2.0); Eosinophils # (auto) 0.3 10 ^3/uL (0-0.8); Eosinophils % (auto) 3.6 % (0.0-7.0); Hematocrit 32.4 % (41.0-53.0); Hemoglobin 9.7 g/dL (13.5-17.5); Lymphocytes # (auto) 2.4 10 ^3/uL (0.4-5.4); Lymphocytes % (auto) 34.4 % (10.0-50.0); Mean Corpuscular Hemoglobin 22.2 pg (28.0-32.0); Mean Corpuscular Hgb Conc. 29.8 g/dL (32.0-36.0); Mean Corpuscular Volume 74.4 fL (80.0-100.0); Monocytes # (auto) 0.9 10 ^3/uL (0-1.3); Monocytes % (auto) 12.2 % (0.0-12.0); Neutrophils # (auto) 3.4 10 ^3/uL (1.6-8.6); Neutrophils % (auto) 48.1 % (37.0-80.0); Red Blood Cells 4.35 10^6/uL (4.5-5.90); White Blood Cell 7.1 10^3/uL (4.4-10.8)
[2023-01-09 02:17] LABS: Albumin 3.3 g/dL (3.4-5.0); BUN/Creatinine Ratio 16.7; Calcium 8.4 mg/dL (8.5-10.1); Potassium 4.2 mmol/L (3.5-5.1)
[2023-01-09 02:20] LABS: Bilirubin, Total 0.2 mg/dL (0.2-1.0); Total Protein 7.5 g/dL (6.4-8.2)
[2023-01-09] MEDS ORDERED: DOXYCYCLINE 100MG/250ML 250 ML IV ONE (04:30)
== END 2023-01-09 04:49 | disposition left against medical advice (07) ==
LOC: ER 23:46
DX: R73.9 Hyperglycemia, unspecified (principal); Z53.21 Procedure and treatment not carried out due to patient leaving prior to being seen by health care provider
CPT/HCPCS: 36415; 36600; 71045; 80053; 82010; 82805; 82962; 84484; 85025

== ENCOUNTER 2023-01-09 13:07 | Emergency (ER) | payer MEDICAID ==
[~2023-01-09] VITALS: Ht 170.2 cm; Wt 85.0 kg
[2023-01-09 16:50] LABS: Basophils # (auto) 0.1 10 ^3/uL (0-0.2); Hemoglobin 9.2 g/dL (13.5-17.5); Monocytes # (auto) 0.6 10 ^3/uL (0-1.3); Nucleated Red Blood Cells % 0.3 %
[2023-01-09 16:52] LABS: Basophils % (auto) 2.1 % (0.0-2.0); Eosinophils # (auto) 0.1 10 ^3/uL (0-0.8); Eosinophils % (auto) 2.6 % (0.0-7.0); Lymphocytes # (auto) 1.4 10 ^3/uL (0.4-5.4); Lymphocytes % (auto) 25.3 % (10.0-50.0); Mean Corpuscular Hemoglobin 22.3 pg (28.0-32.0); Mean Corpuscular Hgb Conc. 28.8 g/dL (32.0-36.0); Mean Corpuscular Volume 77.4 fL (80.0-100.0); Neutrophils # (auto) 3.2 10 ^3/uL (1.6-8.6); Red Blood Cells 4.14 10^6/uL (4.5-5.90); Red Cell Distribution Width 18.9 % (11.8-14.3); White Blood Cell 5.4 10^3/uL (4.4-10.8)
[2023-01-09 16:58] LABS: Alanine Aminotransferase 30 U/L (16-61); Albumin 3.1 g/dL (3.4-5.0); Anion Gap 9 (5-15); Aspartate Aminotransferase 14 U/L (15-37); Blood Urea Nitrogen 19 mg/dL (7-18); Carbon Dioxide 23 mmol/L (21-32); Chloride 108 mmol/L (98-107); GFR African American 97 mL/min; GFR Non-African American 80 mL/min; Glucose 342 mg/dL (74-106); Lipase 479 U/L (73-393); Potassium 4.6 mmol/L (3.5-5.1); Sodium 140 mmol/L (136-145)
[2023-01-09 17:00] LABS: Alkaline Phosphatase 164 U/L (45-117); Bilirubin, Total 0.3 mg/dL (0.2-1.0); Total Protein 7.2 g/dL (6.4-8.2)
[2023-01-09] MEDS ORDERED: SODIUM CHLORIDE 0.9% 1,000 ML IV ONE (19:00)
[2023-01-09 21:43] VITALS: BP 101/68
== END 2023-01-09 21:43 | disposition home or self-care (01) ==
LOC: ER 13:07
DX: S09.8XXA Other specified injuries of head, initial encounter (principal); E11.65 Type 2 diabetes mellitus with hyperglycemia; I10 Essential (primary) hypertension; R42 Dizziness and giddiness; Z88.1 Allergy status to other antibiotic agents; W18.2XXA Fall in (into) shower or empty bathtub, initial encounter; Y93.89 Activity, other specified; Y92.89 Other specified places as the place of occurrence of the external cause; Y99.8 Other external cause status
CPT/HCPCS: 36415; 70450; 80053; 82962; 83605; 83690; 85025

== ENCOUNTER → 2024-04-24 | Outpatient (CLI) | payer OTHER, MEDICAID ==
[~2024-04-24] MED LIST changes: +AMIT-400 PO; -AMIT10TA8 PO; -ASPI1TAB91 PO; +ASPI81TA28 PO; +GABA-1250 PO; -GABA300C10 PO; -LISI-716 PO; +LISI10TA34 PO; +METH-1182 PO; -METH750T22 PO
== END | disposition home or self-care (01) ==
LOC: RT 10:56
PROVIDERS: ATTEND Internal Medicine Pulmonary Disease
DX: J44.9 Chronic obstructive pulmonary disease, unspecified (principal)
CPT/HCPCS: 94060; 94727; 94729

== ENCOUNTER 2025-03-02 19:26 | Inpatient (IN) | payer OTHER, MEDICAID ==
[~2025-03-02] VITALS: Ht 170.2 cm; Wt 91.4 kg
[2025-03-02 20:55] VITALS: PULSE 86; RESP 18; O2SAT 90
[2025-03-02 21:00] LABS: Basophils # (auto) 0.1 10 ^3/uL (0-0.2); Basophils % (auto) 0.9 % (0.0-2.0); Eosinophils # (auto) 0.1 10 ^3/uL (0-0.8); Hematocrit 47.6 % (41.0-53.0); Hemoglobin 15.3 g/dL (13.5-17.5); Lymphocytes # (auto) 1.3 10 ^3/uL (0.4-5.4); Lymphocytes % (auto) 14.9 % (10.0-50.0); Mean Corpuscular Hemoglobin 31.5 pg (28.0-32.0); Mean Corpuscular Hgb Conc. 32.1 g/dL (32.0-36.0); Mean Corpuscular Volume 98.2 fL (80.0-100.0); Monocytes # (auto) 1.1 10 ^3/uL (0-1.3); Monocytes % (auto) 13.5 % (0.0-12.0); Neutrophils # (auto) 5.9 10 ^3/uL (1.6-8.6); Neutrophils % (auto) 69.7 % (37.0-80.0); Platelet Count (auto) 205 10^3/uL (140-450); Red Blood Cells 4.85 10^6/uL (4.5-5.90); Red Cell Distribution Width 15.2 % (11.8-14.3); White Blood Cell 8.5 10^3/uL (4.4-10.8)
[2025-03-02] MEDS: cefTRIAXone SOD 1,000 MG VL IM ONE (21:06)
[2025-03-02 21:07] LABS: Potassium 4.9 mmol/L (3.5-5.1)
[2025-03-02 21:08] LABS: Anion Gap 12 (5-15); Calcium 9.5 mg/dL (8.7-10.4); Carbon Dioxide 25 mmol/L (20-31)
[2025-03-02] MEDS: TETANUS-DIPTH-ACEL PERTUSSIS 0.5ML SYR Tdap IM ONE (21:08)
[2025-03-02 21:13] LABS: BUN/Creatinine Ratio 16.2 (10.0-20.0); Blood Urea Nitrogen 19 mg/dL (9-23)
[2025-03-02 21:18] LABS: Chloride 93 mmol/L (98-107); Sodium 130 mmol/L (136-145)
[2025-03-02 21:29] LABS: Glucose 762 mg/dL (74-106)
[2025-03-02] MEDS: SODIUM CHLORIDE 0.9% 1,000 ML IV ONE (22:00)
[2025-03-02] MEDS: InsuLIN REG 1unit/0.01ml Soln (100units/ml) IV ONE (22:02)
[2025-03-02 22:06] LABS: Base Excess 0.7 mmol/L (-2.0-3.0)
[2025-03-02] MEDS: PIPERACILLIN-TAZOB 3.375GM 100 ML IV ONE (22:09)
[2025-03-02 22:20] LABS: Urine Bacteria None Seen /hpf (None Seen)
[2025-03-02 22:32] LABS: Lactic Acid w/Reflex 2.3 mmol/L (0.4-2.0)
[2025-03-02 22:34] LABS: Urine Blood Negative /uL (Negative); Urine Clarity Clear (Clear); Urine Color Colorless (Yellow); Urine Protein, UAD Negative (Negative); Urine Squamous Epithelial Cell None Seen /hpf (<5); Urine Urobilinogen Normal (Negative); Urine WBC < 1 /HPF (0-3)
[2025-03-02] MEDS ORDERED: VANCOMYCIN PER PHARMACY 0 MG IV SCH (22:45)
--- NOTE | 2025-03-02 23:51 | ED.PDOC ---
History of Present Illness HPI Comments This patient is a pleasant but obese 64-year-old male who arrives to the ED today for evaluation of a progressive insect bite to his posterior left calf that has been worsening over the past several days. Patient states it the event occurred a few days back. Patient is not sure what bit him. Patient states that subsequent to that event, the wound as worsened and become inflamed. Patient denies any fever nausea or vomiting. Patient was mildly tachycardic and mildly hypertensive on arrival. Patient's tetanus is not up-to-date. Chief Complaint: Insect Bite Time Seen by MD: 20:30 Primary Care Provider: DAVID Reviewed Notes: Nurses Notes Allergies: Coded Allergies: Amoxicillin (Verified Allergy, Unknown, 11/01/22) Home Meds Active Scripts Doxycycline Hyclate (DOXYCYCLINE HYCLATE) 100 Mg Tab, 1 TAB PO BID, #14 TAB Prov:CIRILO DRAPER MD 11/06/22 Amiodarone Hcl (Amiodarone Hcl) 200 Mg Tab, 200 MG PO BID, #60 TAB Prov:LUIS BEDOYA MD 10/29/22 Gabapentin (Gabapentin) 300 Mg Cap, 1 CAP PO TID, #90 CAP Prov:LUIS BEDOYA MD 10/29/22 Lancets (Freestyle Lancets) Lancets Mis, BOTTLE XX TIDWM, #120 Prov:LUIS BEDOYA MD 10/29/22 Blood Glucose Monitoring Suppl (D-Care Glucometer Kit/Glu W/Device) 1 Kit Kit, KIT XX TIDWMEALS, #1 Prov:LUIS BEDOYA MD 10/29/22 Insulin Glargine (Lantus Solostar) 100 Unit/Ml Inj, 18 UNIT SC DAILY@BREAKFAST, #10 INJ Prov:LUIS BEDOYA MD 10/29/22 Pantoprazole Sodium Sesquihydr (Pantoprazole Sodium) 40 Mg Tab, 40 MG PO BID, #90 TAB Prov:LUIS BEDOYA MD 10/29/22 Carvedilol (Carvedilol) 3.125 Mg Tab, 1 TAB PO BID, #60 TAB Prov:LUIS BEDOYA MD 10/29/22 Apixaban Base (ELIQUIS) 5 Mg Tab, 5 MG PO BID for 30 Days, #60 TAB Prov:LUIS BEDOYA MD 10/29/22 Ferrous Sulfate (Iron) 325 Mg Tab, 325 MG PO MW, #30 TAB Prov:CIRILO DRAPER MD 10/18/22 Verapamil HCl (Verapamil Hydrochloride) 120 Mg Tab, 1 TAB PO BID, #60 TAB Prov:CIRILO DRAPER MD 10/18/22 Reported Medications Montelukast Sodium (MONTELUKAST SODIUM) 10 Mg Tab, 1 TAB PO DAILY 10/17/22 Ertugliflozin l-Pyroglutamic A (Steglatro) 5 Mg Tab, 1 PO DAILY 10/17/22 Lisinopril (Lisinopril) 10 Mg Tab, 5 MG PO DAILY, TAB 05/15/17 Methocarbamol (Methocarbamol) 750 Mg Tab, 750 MG PO Q8HR, TAB 05/15/17 Aspirin (Aspirin Ec) 81 Mg Tab, 81 MG PO DAILY, TAB 05/15/17 Amitriptyline Hcl (ELAVIL) 10 Mg Tb, 50 MG PO HS 05/15/17 Atorvastatin Calcium (Lipitor) 20 Mg Tab, 1 TAB PO DAILY, #90 TAB 1 Refill 05/15/17 Canagliflozin (INVOKANA) 300 Mg Tab, 300 MG OR DAILY, TAB 05/15/17 Tramadol Hcl (Tramadol Hcl) 50 Mg Tab, 50 MG PO TID, TAB 05/15/17 Pioglitazone Hydrochloride (PIOGLITAZONE HCL) 15 Mg Tab, 15 MG OR DAILY, TAB 05/15/17 Information Source: Patient, Spouse Mode of Arrival: Ambulatory Severity: Moderate Timing: Days Duration: Since onset Prehospital treatment: None Past Medical History PAST MEDICAL HISTORY: DM, High Lipids, HTN Surgical History: Denies all surgeries Family History Family History: Reviewed,noncontributory to illness, Family hx of DM, Family hx of Cancer Social History Smoker: Cigarettes, Greater Than 1 Pack/Day Alcohol: Occasionally Drugs: Marijuana, Methamphetamine Lives In: Home Constitutional: denies: chills, diaphoresis, fatigue, fever, malaise, sweats, weakness, others EENTM: denies: blurred vision, double vision, ear bleeding, ear discharge, ear drainage, ear pain, ear ringing, eye pain, eye redness, hearing loss, mouth pain, mouth swelling, nasal discharge, nose bleeding, nose congestion, nose pain, photophobia, tearing, throat pain, throat swelling, voice changes, others Respiratory: denies: cough, hemoptysis, orthopnea, SOB at rest, shortness of breath, SOB with excertion, stridor, wheezing, others Cardiovascular: denies: chest pain, dizzy spells, diaphoresis, Dyspnea on exertion, edema, irregular heart beat, left arm pain, lightheadedness, palpitations, PND, syncope, others Gastrointestinal: denies: abdomen distended, abdominal pain, blood streaked bowels, constipated, diarrhea, dysphagia, difficulty swallowing, hematemesis, melena, nausea, poor appetite, poor fluid intake, rectal bleeding, rectal pain, vomiting, others Genitourinary: denies: burning, dysuria, flank pain, frequency, hematuria, incontinence, penile discharge, penile sore, pain, testicle pain, testicle sw elling, urgency, others Neurological: denies: dizziness, fainting, headache, left sided numbness, left sided weakness, numbness, paresthesia, pre-existing deficit, right sided numbness, right sided weakness, seizure, speech problems, tingling, tremors, weakness, others Musculoskeletal: denies: back pain, gout, joint pain, joint swelling, muscle pain, muscle stiffness, neck pain, others Integumetry: reports: wounds (Insect bite to posterior lower left leg); denies: bruises, change in color, change in hair/nails, dryness, laceration, lesions, lumps, rash, others Allergic/Immunocompromised: denies: Difficulty Healing, Frequent Infections, Hives, Itching, others Hematologic/Lymphatic: denies: anemia, blood clots, easy bleeding, easy bruising, swollen glands, others Endocrine: denies: excessive hunger, excessive sweating, excessive thirst, excessive urination, flushing, intolerance to cold, intolerance to heat, unexplained weight gain, unexplained weight loss, others Psychiatric: denies: anxiety, bipolar disorder, depression, hopeless, panic disorder, schizophrenia, sleepless, suicidal, others Physical Exam General Appearance: No Apparent Distress, Normal HEENT: Normal ENT Inspection, Pharynx Normal, TMs Normal Neck: Full Range of Motion, Non-Tender, Normal, Normal Inspection Respiratory: Chest Non-Tender, Lungs Clear, No Accessory Muscle Use, No Respiratory Distress, Normal Breath Sounds Cardiovascular: No Edema, No JVD, No Murmur, No Gallop, Normal Peripheral Pulses, Tachycardia Breast Exam: Deferred Gastrointestinal: No Organomegaly, Non Tender, No Pulsatile Mass, Normal Bowel Sounds, Soft Genitalia: Deferred Pelvic: Deferred Rectal: Deferred Extremities: Normal capillary refill, Normal range of motion Neurologic: Alert, No Motor Deficits, Normal Affect, Normal Mood, No Sensory Deficits Cerebellar Function: Normal Reflexes: Normal Skin: Wounds (Patient has a palm sized indurated wound to the posterior aspect of his left calf. Central punctate that appears to be draining mildly. Localized erythema and edema. No lymphangitis.) Lymphatic: No Adenopathy Was a procedure done? Was a procedure done?: No Differential Dx Considerations may include: Cellulitis, skin infection, insect bite X-Ray, Labs, Meds, VS Vital Signs Date Time Temp Pulse Resp B/P (MAP) Pulse Ox O2 Delivery O2 Flow Rate FiO2 03/02/25 19:30 97.9 102 18 147/85 (105) 94 97.9 Lab Test 03/02/25 22:17 03/02/25 22:00 03/02/25 21:54 03/02/25 20:50 Range/Units Urine Color Colorless Yellow Urine Clarity Clear Clear Urine pH 6.0 5.0-9.0 Urine Specific [place] 1.030 1.001-1.035 Urine Protein Negative Negative Urine Ketones Negative Negative Urine Blood Negative Negative /uL Urine Nitrite Negative Negative Urine Bilirubin Negative Negative Urine Urobilinogen Normal Negative mg/dL Urine Leukocyte Esterase Negative Negative /uL Urine RBC <1 0 - 3 /hpf Urine Microscopic WBC < 1 0-3 /HPF Urine Squamous Epithelial Cells None seen <5 /hpf Urine Bacteria None seen None Seen /hpf Urine Glucose 4+ H Normal mg/dL Blood Gas Specimen Type Arterial Blood Gas Sample Site Right radial Blood Gas Patient Temperature 37.0 Arterial Blood Date Drawn [id number] Arterial Blood pH 7.429 7.350-7.450 Arterial Blood Partial Pressure CO2 38.3 35.0-48.0 mmHg Arterial Blood Partial Pressure O2 61.3 L 83.0-108.0 mmHg Arterial Blood HCO3 24.8 21.0-28.0 mmol/L Arterial Blood Oxygen Saturation 90.8 L 94.0-98.0 % Arterial Blood Base Excess 0.7 -2.0-3.0 mmol/L Arterial Blood Oxyhemoglobin 89.2 L 94.0-98.0 % Arterial Blood Carboxyhemoglobin 1.6 H 0.5-1.5 % Arterial Blood Methemoglobin 0.2 0.0-1.5 % Rosalino Test Yes Blood Gas Total Hemoglobin 15.20 13.5-17.5 g/dL Blood Gas Modality Room air FiO2 % 21.0 Lactic Acid Level 2.3 *H 0.4-2.0 mmol/L Troponin I High Sensitivity 19 19 </=54 ng/L White Blood Count 8.5 4.4-10.8 10^3/uL Red Blood Count 4.85 4.5-5.90 10^6/uL Hemoglobin 15.3 13.5-17.5 g/dL Hematocrit 47.6 41.0-53.0 % Mean Corpuscular Volume 98.2 80.0-100.0 fL Mean Corpuscular Hemoglobin 31.5 28.0-32.0 pg Mean Corpuscular Hemoglobin Concent 32.1 32.0-36.0 g/dL Red Cell Distribution Width 15.2 H 11.8-14.3 % Platelet Count 205 140-450 10^3/uL Mean Platelet Volume 8.7 6.9-10.8 fL Neutrophils (%) (Auto) 69.7 37.0-80.0 % Lymphocytes (%) (Auto) 14.9 10.0-50.0 % Monocytes (%) (Auto) 13.5 H 0.0-12.0 % Eosinophils (%) (Auto) 1.0 0.0-7.0 % Basophils (%) (Auto) 0.9 0.0-2.0 % Neutrophils # (Auto) 5.9 1.6-8.6 10 ^3/uL Lymphocytes # (Auto) 1.3 0.4-5.4 10 ^3/uL Monocytes # (Auto) 1.1 0-1.3 10 ^3/uL Eosinophils # (Auto) 0.1 0-0.8 10 ^3/uL Basophils # (Auto) 0.1 0-0.2 10 ^3/uL Nucleated Red Blood Cells 0.0 % Sodium Level 130 L 136-145 mmol/L Potassium Level 4.9 3.5-5.1 mmol/L Chloride Level 93 L 98-107 mmol/L Carbon Dioxide Level 25 20-31 mmol/L Anion Gap 12 5-15 Blood Urea Nitrogen 19 9-23 mg/dL Creatinine 1.17 0.700-1.30 mg/dL Glomerular Filtration Rate Calc 69 >90 mL/min BUN/Creatinine Ratio 16.2 10.0-20.0 Serum Glucose 762 *H 74-106 mg/dL Calcium Level 9.5 8.7-10.4 mg/dL B-Type Natriuretic Peptide 115.27 0-100 pg/mL Lipase 46 12-53 U/L Beta-Hydroxybutyric Acid 0.520 H < 0.4 mmol/L Test 03/02/25 19:44 03/02/25 19:43 Range/Units POC Glucose > 600 *H > 600 *H 70-106 mg/dl Current Medications Medications (Trade) Dose Ordered Sig/Karon Route Start Time Stop Time Status Last Admin Diphtheria/ Tetanus/Acell Pertussis (Boostrix T-Dap) 0.5 ml ONCE ONCE IM 03/02/25 20:45 03/02/25 20:46 DC 03/02/25 21:08 Ceftriaxone Sodium (Rocephin) 1,000 mg ONCE ONCE IM 03/02/25 20:45 03/02/25 20:46 DC 03/02/25 21:06 Sodium Chloride 1,000 ml @ 150 mls/hr Q6H40M ONCE IV 03/02/25 21:45 03/03/25 04:24 03/02/25 22:00 Insulin Human Regular (InsuLIN R) 20 units ONCE ONCE IV 03/02/25 21:45 03/02/25 21:46 DC 03/02/25 22:02 Piperacillin Sod/ Tazobactam Sod 100 ml @ 100 mls/hr ONCE ONCE IV 03/02/25 21:45 03/02/25 22:44 DC 03/02/25 22:09 X-Ray, Labs, Meds, VS Comment Patient started out as a simple assessment of what appeared to be a skin infection due to an insect bite, but mom facility the patient displays some ventricular tachycardic events with continued tachycardia and normotensive resp onse. Laboratories revealed a hyponatremia state as well as a significant hyperglycemic state of over 700. EKG revealed an ectopic atrial tachycardia that was unifocal with a rate of 122. Incomplete right bundle-branch block and LAFB. IN interval of 119 and QT interval of 352. There was some mild concerns for a acute lateral infarct, but I reviewed the EKG studies with Dr. Ny. Does not appear the patient is currently having an acute IN. 3rd troponin was pending at time of this note, but 1st two troponins were unremarkable for any elevation. Patient's V-tach event resolved and at time of this note, patient's BP was 128/76 with a heart rate of 125. Due to meeting SIRS criteria and laboratory findings, sepsis protocol was initiated. Fluid dispensing was limited until BNP had returned. Patient will be admitted for sepsis, cardiac evaluation and management of his infected insect bite. Time of 1ST Reevaluation: 23:46 Reevaluation 1ST: Improved Consultation: PCP, Cardiology Patient Education/Counseling: Diagnosis, Treatment Family Education/Counseling: Diagnosis, Treatment Sepsis Sepsis Reasesment Focused Exam Sepsis focused exam: focus exam completed, time: (23:10) Departure 1 Departure Time of Disposition: 23:50 Impression: Primary Impression: Hyperglycemia due to diabetes mellitus Additional Impressions: Acute coronary syndrome Ectopic atrial tachycardia Cellulitis Disposition: ADMITTED INPATIENT Condition: Fair Discharged With: Self, Spouse Critical Care Note Critical Care Time?: Yes (45 min-critical care time only) Critical care comment: Due to the high probability of a clinically significant and possibly life- threatening deterioration, the patient required my highest level of preparedness to intervene emergently and therefore, I personally provided 45 minutes of critical care time exclusive of time spent on separate billable procedures. This critical care time includes, but is not limited to, obtaining additional history, re-examination of the patient, examination of the pulse oximetry, ordering and reviewing of studies as well as arrangement of urgent treatment with the development of a management plan, evaluation of the patient's response to treatment and frequent reassessments as well as discussions with other providers. Stability Stability form required: No Heart Score Heart Score: Heart Score Response (Comments) Value History Slightly Suspicious 0 EKG Repolarization Disturb 1 Age >65 2 Risk Factors 1 or 2 risk factors 1 Troponin Normal limit 0 Total 4 ROSANNE BABCOCK PAC Mar 02, 2025 23:51
[2025-03-03] VITALS (7 sets, daily range): BP systolic 141–150; BP diastolic 78–85; PULSE 73–86; RESP 14–16; TEMP 98.7–98.8; O2SAT 15–96
[2025-03-03] MEDS: SODIUM CHLORIDE 0.9% 1,000 ML IV ONE (00:02)
[2025-03-03] MEDS ORDERED: ACETAMINOPHEN 325 MG TAB PO PRN (00:30)
[2025-03-03] MEDS ORDERED: NITROGLYCERIN 0.4 MG SL TAB SL PRN (00:30)
[2025-03-03] MEDS ORDERED: MORPHINE SULFATE INJ 2 MG/ml SYRG IV PRN (00:30)
[2025-03-03] MEDS ORDERED: DEXTROSE (50%) 50ML SYRG IV PRN (00:30)
[2025-03-03] MEDS ORDERED: ONDANSETRON HCL 4 MG/2 ML VIAL IV PRN (00:30)
--- NOTE | 2025-03-03 00:57 | DVHHP2 ---
History of Present Illness Reason for Visit: Lower extremity infection History of Present Illness 64-year-old male presents for evaluation of lower extremity infection. Patient reports possibly being bitten by spider a week ago on his left calf. He states over the past two days his lower extremity has become more swollen and tender. He also reports intermittent chills. On arrival his blood sugar was also noted to be elevated greater than 700. No nausea or vomiting. No other acute complaints reported. Past Medical History Hypertension, dyslipidemia, diabetes mellitus Past Surgical History Denies Family History Diabetes mellitus Smoke: <1 pack per day ALCOHOL: occassional Drugs: Marijuana, Other (Methamphetamine) Review of Systems Review of Systems Review of systems are currently negative otherwise addressed in HPI. Allergies: Coded Allergies: Amoxicillin (Verified Allergy, Unknown, 11/01/22) Medications Current Medications Medications Dose Ordered Sig/Karon Route Start Time Stop Time Status Last Admin Dose Admin Vancomycin HCl 0 ml @ 0 mls/hr UD IV 03/02/25 22:45 UNV Vancomycin HCl 250 ml @ 125 mls/hr Q2H IV 03/02/25 23:00 03/03/25 02:59 Amiodarone HCl 200 mg Q12HR PO 03/03/25 10:00 UNV Atorvastatin Calcium 20 mg HS PO 03/03/25 22:00 UNV Apixaban 5 mg BID PO 03/03/25 10:00 UNV Carvedilol 3.125 mg Q12HR PO 03/03/25 10:00 UNV Verapamil HCl 180 mg DAILY PO 03/03/25 10:00 UNV Ceftriaxone Sodium 50 ml @ 100 mls/hr DAILY@09 IV 03/03/25 09:00 UNV Diagnostic Test (Pha) 1 strip IQ4HR 03/03/25 04:00 UNV Insulin Human Regular IQ4HR SC 03/03/25 04:00 UNV Dextrose 50 ml UD PRN IV 03/03/25 00:30 UNV Acetaminophen/ Hydrocodone Bitart 1 tab Q4HP PRN PO 03/03/25 00:30 UNV Ondansetron HCl 4 mg Q4HP PRN IV 03/03/25 00:30 UNV Acetaminophen 650 mg Q6HP PRN PO 03/03/25 00:30 UNV Nitroglycerin 0.4 mg Q5MINP PRN SL 03/03/25 00:30 UNV Morphine Sulfate 2 mg Q30M PRN IV 03/03/25 00:30 UNV Exam Vital Signs Vital Signs Date Time Temp Pulse Resp B/P (MAP) Pulse Ox O2 Delivery O2 Flow Rate FiO2 03/03/25 00:00 97.5 128 14 147/94 (111) 92 97.5 Exam Gen: 64-year-old male in mild distress Skin: Warm, dry, normal color and texture, no rash. HEENT: Normocephalic atraumatic, mucous membranes moist and pink. Neck: Cervical and supraclavicular nodes normal without enlargement, trachea is midline, thyroid gland is normal without masses. Pulmonary: Clear to auscultation and percussion bilaterally. Cardiac: Regular rate and rhythm. No murmur Abdomen: Soft, nontender, nondistended, bowel sounds present all 4 quadrants, no guarding, no rigidity, no organomegaly. Extremities: No cyanosis, clubbing, left calf cellulitis Neuro: Cranial nerves II through XII grossly intact, normal affect and speech, no focal motor deficits. Labs/Xrays Labs Test 03/02/25 23:34 03/02/25 22:17 03/02/25 22:00 03/02/25 20:50 Range/Units Lactic Acid Level 1.7 0.4-2.0 mmol/L Urine Color Colorless Yellow Urine Clarity Clear Clear Urine pH 6.0 5.0-9.0 Urine Specific [place] 1.030 1.001-1.035 Urine Protein Negative Negative Urine Ketones Negative Negative Urine Blood Negative Negative /uL Urine Nitrite Negative Negative Urine Bilirubin Negative Negative Urine Urobilinogen Normal Negative mg/dL Urine Leukocyte Esterase Negative Negative /uL Urine RBC <1 0 - 3 /hpf Urine Microscopic WBC < 1 0-3 /HPF Urine Squamous Epithelial Cells None seen <5 /hpf Urine Bacteria None seen None Seen /hpf Urine Glucose 4+ H Normal mg/dL Blood Gas Specimen Type Arterial Blood Gas Sample Site Right radial Blood Gas Patient Temperature 37.0 Arterial Blood Date Drawn [id number] Arterial Blood pH 7.429 7.350-7.450 Arterial Blood Partial Pressure CO2 38.3 35.0-48.0 mmHg Arterial Blood Partial Pressure O2 61.3 L 83.0-108.0 mmHg Arterial Blood HCO3 24.8 21.0-28.0 mmol/L Arterial Blood Oxygen Saturation 90.8 L 94.0-98.0 % Arterial Blood Base Excess 0.7 -2.0-3.0 mmol/L Arterial Blood Oxyhemoglobin 89.2 L 94.0-98.0 % Arterial Blood Carboxyhemoglobin 1.6 H 0.5-1.5 % Arterial Blood Methemoglobin 0.2 0.0-1.5 % Rosalino Test Yes Blood Gas Total Hemoglobin 15.20 13.5-17.5 g/dL Blood Gas Modality Room air FiO2 % 21.0 White Blood Count 8.5 4.4-10.8 10^3/uL Red Blood Count 4.85 4.5-5.90 10^6/uL Hemoglobin 15.3 13.5-17.5 g/dL Hematocrit 47.6 41.0-53.0 % Mean Corpuscular Volume 98.2 80.0-100.0 fL Mean Corpuscular Hemoglobin 31.5 28.0-32.0 pg Mean Corpuscular Hemoglobin Concent 32.1 32.0-36.0 g/dL Red Cell Distribution Width 15.2 H 11.8-14.3 % Platelet Count 205 140-450 10^3/uL Mean Platelet Volume 8.7 6.9-10.8 fL Neutrophils (%) (Auto) 69.7 37.0-80.0 % Lymphocytes (%) (Auto) 14.9 10.0-50.0 % Monocytes (%) (Auto) 13.5 H 0.0-12.0 % Eosinophils (%) (Auto) 1.0 0.0-7.0 % Basophils (%) (Auto) 0.9 0.0-2.0 % Neutrophils # (Auto) 5.9 1.6-8.6 10 ^3/uL Lymphocytes # (Auto) 1.3 0.4-5.4 10 ^3/uL Monocytes # (Auto) 1.1 0-1.3 10 ^3/uL Eosinophils # (Auto) 0.1 0-0.8 10 ^3/uL Basophils # (Auto) 0.1 0-0.2 10 ^3/uL Nucleated Red Blood Cells 0.0 % Sodium Level 130 L 136-145 mmol/L Potassium Level 4.9 3.5-5.1 mmol/L Chloride Level 93 L 98-107 mmol/L Carbon Dioxide Level 25 20-31 mmol/L Anion Gap 12 5-15 Blood Urea Nitrogen 19 9-23 mg/dL Creatinine 1.17 0.700-1.30 mg/dL Glomerular Filtration Rate Calc 69 >90 mL/min BUN/Creatinine Ratio 16.2 10.0-20.0 Serum Glucose 762 *H 74-106 mg/dL Calcium Level 9.5 8.7-10.4 mg/dL B-Type Natriuretic Peptide 115.27 0-100 pg/mL Lipase 46 12-53 U/L Beta-Hydroxybutyric Acid 0.520 H < 0.4 mmol/L Test 03/02/25 19:44 Range/Units POC Glucose > 600 *H 70-106 mg/dl Assessment/Plan Assessment/Plan Assessment Left lower extremity cellulitis Uncontrolled diabetes mellitus Hypertension Early sepsis Sinus tachycardia Plan Admit the patient to telemetry to the hospitalist Rocephin/vancomycin Maintenance IV fluids Pain management Resume home medications Continue treatment per orders. Plan discussed with: Patient My Orders Orders - ELEAZAR HORTON AGACNP Procedure Category Date Status Time Amiodarone Tablet PHA 03/03/25 Logged (Cordarone Tablet) 10:00 Amiodarone Tablet PHA 03/03/25 Logged (Cordarone Tablet) 00:30 Atorvastatin (Lipitor) PHA 03/03/25 Logged 22:00 Apixaban (Eliquis) PHA 03/03/25 Logged 10:00 Carvedilol Tablet PHA 03/03/25 Logged (Coreg Tablet) 10:00 Verapamil Er ([place] PHA 03/03/25 Logged Sr) 10:00 Verapamil Er (Calan PHA 03/03/25 Logged Sr) 00:30 Ceftriaxone 1gm/50ml PHA 03/03/25 Logged D5w (Rocephin) 09:00 Consistent DIET 03/03/25 Transmitted Carb(Ccho)Diabetes Breakfast Glucose Blood PHA 03/03/25 Logged (Accu-Chek Comfort 04:00 Insulin R (Human) PHA 03/03/25 Logged (Insulin R) 04:00 Dextrose 50% Syringe PHA 03/03/25 Logged 00:30 Admit ADMIT 03/03/25 Transmitted 00:17 Hydrocodone-Acet PHA 03/03/25 Logged 5/325mg Tab ([place] 00:30 Ondansetron Hcl PHA 03/03/25 Logged (Zofran) 00:30 Complete Blood Count LAB 03/04/25 Verified 04:00 Comprehensive LAB 03/04/25 Verified Metabolic Panel 04:00 Condition: Stable [facility] 03/03/25 In Process 00:17 Acetaminophen Tablet [facility] 03/03/25 Logged (Tylenol Tablet) 00:30 Bedrest With Bathroom [facility] 03/03/25 In Process Privileg 00:17 Nitroglycerin [facility] 03/03/25 Logged Sublingual (Ntrostat 00:30 Morphine Sulfate [facility] 03/03/25 Logged Injection 00:30 Stat Ekg For Chest [facility] 03/03/25 In Process Pain 00:17 Notify Of Changes [facility] 03/03/25 In Process From Base 00:17 Sales Promotion Manager For [facility] 03/03/25 In Process 24 Hours 00:17 Emergency Dysrhythmia [facility] 03/03/25 In Process Protocol 00:17 Rhythm Strips Once [facility] 03/03/25 In Process Every Shift 00:17 Oxygen By Nasal RT 03/03/25 Transmitted Cannula 00:17 Date of Service: Mar 03, 2025 Billing Provider: ELEAZAR HORTON Common Visit Codes: [id number] INP/OBS CARE (HIGH) ELEAZAR HORTON Mar 03, 2025 00:57
[2025-03-03] MEDS: VANCOMYCIN 1GM/200ML PM 250 ML IV SCH (01:00)
[2025-03-03] MEDS: VERAPAMIL HCL 120 mg ER tab PO ONE (01:17)
[2025-03-03] MEDS: AMIODARONE HCL 200 MG TAB PO ONE (01:17)
[2025-03-03] MEDS: ACCU-CHEK COMFORT CURVE STRIP VI SCH (04:18)
[2025-03-03] MEDS: InsuLIN REG 1unit/0.01ml Soln (100units/ml) SC SCH (04:19)
--- NOTE | 2025-03-03 06:21 | ECG ---
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
[2025-03-03 08:26] LABS: Basophils # (auto) 0.1 10 ^3/uL (0-0.2); Basophils % (auto) 0.8 % (0.0-2.0); Eosinophils # (auto) 0.1 10 ^3/uL (0-0.8); Eosinophils % (auto) 1.4 % (0.0-7.0); Hematocrit 45.7 % (41.0-53.0); Hemoglobin 15.5 g/dL (13.5-17.5); Lymphocytes # (auto) 1.3 10 ^3/uL (0.4-5.4); Lymphocytes % (auto) 15.6 % (10.0-50.0); Mean Corpuscular Hemoglobin 31.6 pg (28.0-32.0); Mean Corpuscular Hgb Conc. 33.9 g/dL (32.0-36.0); Mean Corpuscular Volume 93.1 fL (80.0-100.0); Monocytes % (auto) 11.6 % (0.0-12.0); Neutrophils % (auto) 70.6 % (37.0-80.0); Nucleated Red Blood Cells % 0.1 %; Platelet Count (auto) 204 10^3/uL (140-450); Red Blood Cells 4.91 10^6/uL (4.5-5.90); Red Cell Distribution Width 14.6 % (11.8-14.3); White Blood Cell 8.5 10^3/uL (4.4-10.8)
[2025-03-03 08:34] LABS: Amphetamine Screen, Urine Neg (NEGATIVE)
[2025-03-03 08:35] LABS: Barbiturate Scree,Urine Neg (NEGATIVE); Benzodiazephine Screen, Urine Neg (NEGATIVE); Cannabinoid Screen, Urine Neg (NEGATIVE); Cocaine Screen, Urine Neg (NEGATIVE); Opiate Scree,Urine Neg (NEGATIVE); Phencyclidine Screen, Urine Neg (NEGATIVE)
[2025-03-03 08:50] LABS: Alanine Aminotransferase 22 U/L (7-40); Albumin 4.1 g/dL (3.2-4.8); Anion Gap 8 (5-15); BUN/Creatinine Ratio 16.3 (10.0-20.0); Bilirubin, Total 0.6 mg/dL (0.2-1.0); Blood Urea Nitrogen 14 mg/dL (9-23); Calcium 9.3 mg/dL (8.7-10.4); Carbon Dioxide 25 mmol/L (20-31); Chloride 105 mmol/L (98-107); Potassium 3.7 mmol/L (3.5-5.1); Sodium 138 mmol/L (136-145); Total Protein 6.8 g/dL (5.7-8.2)
[2025-03-03 08:54] LABS: Alkaline Phosphatase 142 U/L (46-116); Aspartate Aminotransferase 12 U/L (13-40); Glucose 235 mg/dL (74-106)
[2025-03-03] MEDS: INSULIN LANTUS (GLARGINE) 1 /0.01ml (100units/ml) SC SCH (09:04)
--- NOTE | 2025-03-03 09:47 | DVH ---
Clinical statement: determine the extention of cellulitis. R/O nec fasc Study: CT extremity without contrast. Technique: Noncontrast axial CT of the left lower extremity from the left knee 2 the left foot perfo rmed with coronal and sagittal reformatted images. Ordering physician: ELEAZAR HORTON RESIDENT Comparison: None Findings/Impression: Limited characterization without contrast. Small suprapatellar effusion. Extensive left lower extremity soft tissue edema and stranding which can be seen with cellulitis and other etiologies. This is especially pronounced in the ankle region and dorsum of the left foot. No d efinitive loculated collection seen. No soft tissue emphysema seen. Atherosclerotic calcification disease. No acute fracture. No osseous erosion/periostitis. Inferior calcaneal spurring.
--- NOTE | 2025-03-03 10:18 | DVH ---
Lower extremity venous duplex Clinical History: R/O DVT Comparison: LUDVT on DOS: 10/17/22 Findings: Duplex Doppler evaluation of the deep venous systems of the left lower extremity from the common femo ral veins to the popliteal veins including color Doppler and spectral/pulsed waveform analysis was pe rformed. LEFT SIDE: The common femoral vein demonstrates appropriate compressibility and waveform variability . There is compressibility/patency of the great saphenous vein at the proximal thigh . The femoral vein demonstrates appropriate compressibility and waveform variability . The popliteal vein demonstrates appropriate compressibility and waveform variability . Impression: 1. No evidence for deep vein thrombosis.
[2025-03-03] MEDS: VERAPAMIL HCL 180mg SR tab PO SCH (11:06)
[2025-03-03] MEDS: AMIODARONE HCL 200 MG TAB PO SCH (11:07)
[2025-03-03] MEDS: CARVEDILOL 3.125 MG TAB PO SCH (11:07)
[2025-03-03] MEDS: APIXABAN 5 MG TAB PO SCH (11:07)
--- NOTE | 2025-03-03 12:02 | DVHPNRES ---
Progress Note Date Seen: Mar 03, 2025 Resident Creating Document: PAWEL RIVERS RESIDENT Has the PT tested + for MRSA If YES, has PT been informed?: No Medical Necessity Reason Pt with a Central, PICC or Fol: No Subjective Review of Systems This is a 64-year-old male with past medical history of hypertension, type 2 diabetes mellitus insulin dependent, dyslipidemia, who presented to the ED with chief complaint of left lower extremity pain and swelling. The patient reported that the pain and swelling started one week ago in his left calf and states that he thinks that he was bitten by a spider but he did not so any spider or insect at that time. The patient reports that the swelling and pain has recently gotten worse with more warm sensation in the left leg. The patient denied fever but reported recent chills before admission. On admission, the patient was having elevated blood glucose levels greater than 700 but anion gap was closed and patient was not in DKA at that time. Patient denied nausea, vomiting, chest pain, shortness of breath or any other complaints at that time. The patient was started on IV vancomycin and ceftriaxone for left lower extremity cellulitis and was admitted for further assessment and management. The patient was seen and examined at bedside. Upon my examination and assessment, the patient is currently having left lower extremity cellulitis at the level of the calves with an ulcerated crusted lesion surrounded by extended erythema and warmth sensation to touch. The patient also reports tenderness with mild to moderate squeezing of the left calf. We will order a CT scan of the left lower extremity to determine the exact extension of the cellulitis and to rule out any formation of abscess. We started the patient on Lantus 20 units q.a.m. and we will continue aggressive sliding scale insulin to try to control blood glucose levels at this time. Initially right lower extremity pulses were felt easily at dorsalis pedis and posterior tibialis artery but not that much in the left lower extremity due to swelling. Ultrasound Doppler was used and pulses were heard through the Doppler in the left lower extremity at both dorsalis pedis artery and posterior tibialis artery. We will continue IV vancomycin and ceftriaxone at this point and continue monitoring CBC and symptoms in a daily basis. We will order a baseline EKG since the patient was having a wide QRS complex tachycardia on admission with currently on sinus rhythm. ROS Constitutional: Denies weight loss, fever and chills. HEENT: Denies changes in vision and hearing. Respiratory: Denies shortness of breath and cough Cardiovascular: Denies chest discomfort or palpitations GI: Denies abdominal pain, nausea, vomiting and diarrhea. : Denies dysuria and urinary frequency. Musculoskeletal: Reports left lower extremity tenderness on palpation associated with warm sensation, erythema an ulcerated crusted lesion in the left calf. Skin: Denies rash and pruritus. Neurological: Denies dizziness, headache, vision or hearing problems Objective vital signs Vital Sign Date Time Temp Pulse Resp B/P (MAP) Pulse Ox O2 Delivery O2 Flow Rate FiO2 03/03/25 11:07 78 142/83 03/03/25 10:00 16 98 03/03/25 09:00 Room Air* 0 21 03/03/25 07:50 98.9 98.9 Total Intake and Output 03/02/25 03/02/25 03/03/25 15:00 23:00 07:00 Intake Total 1600 ml Balance 1600 ml medications Current Medications Medications Dose Ordered Sig/Karon Route Start Time Stop Time Status Last Admin Dose Admin Vancomycin HCl 0 ml @ 0 mls/hr UD IV 03/02/25 22:45 Amiodarone HCl 200 mg Q12HR PO 03/03/25 10:00 03/03/25 11:07 200 MG Atorvastatin Calcium 20 mg HS PO 03/03/25 22:00 Apixaban 5 mg BID PO 03/03/25 10:00 03/03/25 11:07 5 MG Carvedilol 3.125 mg Q12HR PO 03/03/25 10:00 03/03/25 11:07 3.125 MG Verapamil HCl 180 mg DAILY PO 03/03/25 10:00 03/03/25 11:06 180 MG Ceftriaxone Sodium 50 ml @ 100 mls/hr Q24H IV 03/03/25 21:00 Diagnostic Test (Pha) 1 strip IQ4HR 03/03/25 04:00 03/03/25 08:00 1 STRIP Insulin Human Regular IQ4HR SC 03/03/25 04:00 03/03/25 09:03 8 UNITS Dextrose 50 ml UD PRN IV 03/03/25 00:30 Acetaminophen/ Hydrocodone Bitart 1 tab Q4HP PRN PO 03/03/25 00:30 Ondansetron HCl 4 mg Q4HP PRN IV 03/03/25 00:30 Acetaminophen 650 mg Q6HP PRN PO 03/03/25 00:30 Nitroglycerin 0.4 mg Q5MINP PRN SL 03/03/25 00:30 Morphine Sulfate 2 mg Q30M PRN IV 03/03/25 00:30 Insulin Glargine 20 units QAM SC 03/03/25 09:00 03/03/25 09:04 20 UNITS Vancomycin HCl 250 ml @ 200 mls/hr Q12H IV 03/03/25 20:00 Examination Physical Examination General: Patient alert and oriented in person, place and time. Patient following commands. HEENT: Normocephalic, atraumatic, moist mucous membranes Respiratory/pulmonary: Clear lungs bilaterally, vesicular murmurs present in almost all lung ferrell, no associated crackles or wheezes. Cardiovascular: Normal heart sounds S1 and S2 with no associated murmurs Abdomen: Abdomen nondistended, there is no pain to palpation in any of the abdominal quadrants, no palpable masses. Extremities: There is a left lower extremity cellulitis at the level of the left calf. There is an ulcerated crusted lesion in the left calf with surrounding erythema and swelling extending from the calf down to the left foot. There is also slight induration at the level of the calves with warm sensation to palpation. Peripheral Pulses: Pulses in the lower extremities were easily felt in the right lower extremity but not on the left lower extremity. Ultrasound Doppler was used to hear the pulses in the left lower extremity but were present in both posterior tibialis and dorsalis pedis arteries. 3+ Radial (R). 3+ Radial (L). 3+ Dorsalis pedis (R). 3+ Dorsalis pedis(L) Skin: No rashes or pruritus, there is no sacral edema present at this time. Neurological: Intact cranial nerves with no focal neurologic deficits laboratory and microbiology Laboratory Tests 03/03/25 08:07 Test 03/03/25 08:07 Range/Units Serum Glucose 235 #H 74-106 mg/dL Problem List/Assessment/Plan Problem List/Assessment/Plan Assessment/Plan Left lower extremity cellulitis at the level of the left calf -there is an ulcerated crusted lesion at the level of the left calf associated with surrounding erythema, induration and swelling of the left calf extending to the left foot. -ordered left lower extremity CT scan to rule out abscess or necrotizing fasciitis. -ordered left lower extremity venous Doppler to rule out DVT -start IV vancomycin and ceftriaxone -WBC is 8.5 -pulses were easily palpated in the right lower extremity but not identified in the left lower extremity on palpation, ultrasound Doppler was used and pulses of both dorsalis pedis and posterior tibialis artery were heard through the Doppler. Possible sepsis due to above -continue IV vancomycin and ceftriaxone -monitor blood count and vital signs Ruled out DVT -left lower extremity venous Doppler was performed showing no evidence of DVT in the left lower extremity. Uncontrolled type 2 diabetes mellitus insulin-dependent, NO DKA -ordered hemoglobin A1c -initial blood glucose was greater than 700 -start Lantus 20 units q.a.m. -continue aggressive sliding scale insulin -monitor blood glucose closely Primary hypertension -continue verapamil 180 mg daily -continue carvedilol 3.125 mg b.i.d. Dyslipidemia -Continue on atorvastatin 20mg daily Hx of Afib? -Patient had a short run of v-tach on admission -patient taking at home, Amiodarone 200mg BID and apixaban 5mg BID. Will continue current meds. Goals of care discussed with the patient at bedside for >25min, FULL CODE Plan discussed with Dr. Marquez Plan discussed with: Patient My Orders My Orders Orders - PAWEL RIVERS Procedure Category Date Status Time Insulin Lantus PHA 03/03/25 In Process (Glargine) (Lantus) 09:[address] 03/03/25 Resulted W/O Con 08:32 Lt Lower Dvt US 03/03/25 Resulted 08:32 Date of Service: Mar 03, 2025 Billing Provider: WALTER MARQUEZ MD Common Visit Codes: [id number] INP/OBS CARE(HIGH) PAWEL RIVERS Mar 03, 2025 12:02 WALTER MARQUEZ MD Mar 03, 2025 22:29
--- NOTE | 2025-03-03 13:16 | ECG ---
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
[2025-03-03] MEDS: VANCOMYCIN 1.25GM/250ML 250 ML IV SCH (20:53)
[2025-03-03] MEDS: cefTRIAXone 1GM/50ML D5W 50 ML IV SCH (21:06)
[2025-03-03] MEDS: ATORVASTATIN 20 MG TAB PO SCH (21:07)
[2025-03-04] VITALS (8 sets, daily range): BP systolic 131–155; BP diastolic 76–91; PULSE 68–85; RESP 14–18; TEMP 97.3–98.7; O2SAT 93–99
[2025-03-04 07:05] LABS: Basophils # (auto) 0 10 ^3/uL (0-0.2); Basophils % (auto) 0.5 % (0.0-2.0); Eosinophils # (auto) 0.1 10 ^3/uL (0-0.8); Eosinophils % (auto) 0.9 % (0.0-7.0); Hematocrit 40.2 % (41.0-53.0); Hemoglobin 13.6 g/dL (13.5-17.5); Lymphocytes % (auto) 11.2 % (10.0-50.0); Mean Corpuscular Hemoglobin 31.6 pg (28.0-32.0); Mean Corpuscular Hgb Conc. 33.9 g/dL (32.0-36.0); Mean Corpuscular Volume 93.3 fL (80.0-100.0); Monocytes # (auto) 0.8 10 ^3/uL (0-1.3); Neutrophils % (auto) 78.4 % (37.0-80.0); Platelet Count (auto) 192 10^3/uL (140-450); Red Cell Distribution Width 14.5 % (11.8-14.3); White Blood Cell 8.9 10^3/uL (4.4-10.8)
[2025-03-04 07:13] LABS: Alanine Aminotransferase 22 U/L (7-40); Alkaline Phosphatase 114 U/L (46-116); Anion Gap 9 (5-15); BUN/Creatinine Ratio 26.8 (10.0-20.0); Blood Urea Nitrogen 22 mg/dL (9-23); Calcium 9.6 mg/dL (8.7-10.4); Carbon Dioxide 26 mmol/L (20-31); Chloride 103 mmol/L (98-107); Potassium 3.7 mmol/L (3.5-5.1); Sodium 138 mmol/L (136-145)
[2025-03-04 07:14] LABS: Aspartate Aminotransferase 14 U/L (13-40); Total Protein 6.5 g/dL (5.7-8.2)
[2025-03-04 07:15] LABS: Albumin 3.9 g/dL (3.2-4.8); Bilirubin, Total 0.4 mg/dL (0.2-1.0)
[2025-03-04 07:21] LABS: Glucose 170 mg/dL (74-106)
--- NOTE | 2025-03-04 11:23 | DVHPNRES ---
Progress Note Date Seen: Mar 04, 2025 Resident Creating Document: PAWEL RIVERS RESIDENT Has the PT tested + for MRSA If YES, has PT been informed?: No Medical Necessity Reason Pt with a Central, PICC or Fol: No Subjective Review of Systems This is a 64-year-old male with past medical history of hypertension, type 2 diabetes mellitus insulin dependent, dyslipidemia, who presented to the ED with chief complaint of left lower extremity pain and swelling. The patient reported that the pain and swelling started one week ago in his left calf and states that he thinks that he was bitten by a spider but he did not so any spider or insect at that time. The patient reports that the swelling and pain has recently gotten worse with more warm sensation in the left leg. The patient denied fever but reported recent chills before admission. On admission, the patient was having elevated blood glucose levels greater than 700 but anion gap was closed and patient was not in DKA at that time. Patient denied nausea, vomiting, chest pain, shortness of breath or any other complaints at that time. The patient was started on IV vancomycin and ceftriaxone for left lower extremity cellulitis and was admitted for further assessment and management. Patient seen and examined at bedside. The patient still has left lower extremity cellulitis at the left calf with surrounding erythema, edema and warm sensation to the touch. With the demarcated with a marker erythema and we will evaluate resolution tomorrow a.m.. Patient is feeling better compared to admission and states that swelling has been getting better. We will continue vancomycin and ceftriaxone for antibiotic coverage and we will continue other current medical management for underlying heart disease. Blood glucose is also coming down to 150s with the Lantus 20 units and aggressive sliding scale insulin. We will continue current medical management at this time. ROS Constitutional: Denies weight loss, fever and chills. HEENT: Denies changes in vision and hearing. Respiratory: Denies shortness of breath and cough Cardiovascular: Denies chest discomfort or palpitations GI: Denies abdominal pain, nausea, vomiting and diarrhea. : Denies dysuria and urinary frequency. Musculoskeletal: Reports left calf tenderness to palpation due to cellulitis. Denies myalgias and joint pain Skin: Denies rash and pruritus. Neurological: Denies dizziness, headache, vision or hearing problems Objective vital signs Vital Sign Date Time Temp Pulse Resp B/P (MAP) Pulse Ox O2 Delivery O2 Flow Rate FiO2 4/7/25 10:04 69 142/94 03/04/25 08:00 18 95 Nasal Cannula* 2 28 03/04/25 05:00 98.5 98.5 Total Intake and Output 03/03/25 03/03/25 03/04/25 15:00 23:00 07:00 Intake Total 250 ml 600 ml Balance 250 ml 600 ml medications Current Medications Medications Dose Ordered Sig/Karon Route Start Time Stop Time Status Last Admin Dose Admin Vancomycin HCl 0 ml @ 0 mls/hr UD IV 03/02/25 22:45 Amiodarone HCl 200 mg Q12HR PO 03/03/25 10:00 03/04/25 09:03 200 MG Atorvastatin Calcium 20 mg HS PO 03/03/25 22:00 03/03/25 21:07 20 MG Apixaban 5 mg BID PO 03/03/25 10:00 03/04/25 09:03 5 MG Carvedilol 3.125 mg Q12HR PO 03/03/25 10:00 03/04/25 09:04 3.125 MG Verapamil HCl 180 mg DAILY PO 03/03/25 10:00 03/04/25 09:15 180 MG Ceftriaxone Sodium 50 ml @ 100 mls/hr Q24H IV 03/03/25 21:00 03/03/25 21:06 100 MLS/HR Diagnostic Test (Pha) 1 strip IQ4HR 03/03/25 04:00 03/04/25 07:55 1 STRIP Insulin Human Regular IQ4HR SC 03/03/25 04:00 03/04/25 07:56 2 UNITS Dextrose 50 ml UD PRN IV 03/03/25 00:30 Acetaminophen/ Hydrocodone Bitart 1 tab Q4HP PRN PO 03/03/25 00:30 Ondansetron HCl 4 mg Q4HP PRN IV 03/03/25 00:30 Acetaminophen 650 mg Q6HP PRN PO 03/03/25 00:30 Nitroglycerin 0.4 mg Q5MINP PRN SL 03/03/25 00:30 Morphine Sulfate 2 mg Q30M PRN IV 03/03/25 00:30 Insulin Glargine 20 units QAM SC 03/03/25 09:00 03/04/25 06:01 20 UNITS Vancomycin HCl 250 ml @ 200 mls/hr Q12H IV 03/03/25 20:00 03/04/25 08:16 200 MLS/HR Examination Physical Examination General: Patient alert and oriented in person, place and time. Patient following commands. HEENT: Normocephalic, atraumatic, moist mucous membranes Respiratory/pulmonary: Clear lungs bilaterally, vesicular murmurs present in almost all lung ferrell, no associated crackles or wheezes. Cardiovascular: Normal heart sounds S1 and S2 with no associated murmurs Abdomen: Abdomen nondistended, there is no pain to palpation in any of the abdominal quadrants, no palpable masses. Extremities: There is a left lower extremity cellulitis at the level of the left calf. There is an ulcerated crusted lesion in the left calf with surrounding erythema and swelling extending from the calf down to the left foot. There is also slight induration at the level of the calves with warm sensation to palpation. Cellulitis was demarcated with a black marker to objectively determine improvement. Peripheral Pulses: Pulses in the lower extremities were easily felt in the right lower extremity but not on the left lower extremity. Ultrasound Doppler was used to hear the pulses in the left lower extremity but were present in both posterior tibialis and dorsalis pedis arteries. 3+ Radial (R). 3+ Radial (L). 3+ Dorsalis pedis (R). 3+ Dorsalis pedis(L) Skin: No rashes or pruritus, there is no sacral edema present at this time. Neurological: Intact cranial nerves with no focal neurologic deficits laboratory and microbiology Laboratory Tests 03/04/25 05:21 Test 03/04/25 05:21 Range/Units Serum Glucose 170 H 74-106 mg/dL Microbiology Date/Time Source Procedure Growth Status 03/02/25 23:34 Blood Blood Culture - Preliminary NO GROWTH AFTER 24 HOURS OF INCUBATION. Resulted Problem List/Assessment/Plan Problem List/Assessment/Plan Assessment/Plan Left lower extremity cellulitis at the level of the left calf -there is an ulcerated crusted lesion at the level of the left calf associated with surrounding erythema, induration and swelling of the left calf extending to the left foot. -ordered left lower extremity CT scan to rule out abscess or necrotizing fasciitis. -ordered left lower extremity venous Doppler to rule out DVT -Continue IV vancomycin and ceftriaxone -WBC is 8.9 -pulses were easily palpated in the right lower extremity but not identified in the left lower extremity on palpation, ultrasound Doppler was used and pulses of both dorsalis pedis and posterior tibialis artery were heard through the Doppler. Possible sepsis due to above -continue IV vancomycin and ceftriaxone -monitor blood count and vital signs Ruled out DVT -left lower extremity venous Doppler was performed showing no evidence of DVT in the left lower extremity. Uncontrolled type 2 diabetes mellitus insulin-dependent, NO DKA -ordered hemoglobin A1c -initial blood glucose was greater than 700, currently coming down to 150s. -Continue Lantus 20 units q.a.m. -continue aggressive sliding scale insulin -monitor blood glucose closely Primary hypertension -continue verapamil 180 mg daily -continue carvedilol 3.125 mg b.i.d. Dyslipidemia -Continue on atorvastatin 20mg daily Hx of Afib? -Patient had a short run of v-tach on admission -patient taking at home, Amiodarone 200mg BID and apixaban 5mg BID. Will continue current meds. Goals of care discussed with the patient at bedside for >25min, FULL CODE Plan discussed with Dr. Villalpando Plan discussed with: Patient My Orders My Orders Orders - PAWEL RIVERS Procedure Category Date Status Time Electrocardigram EKG 03/03/25 Resulted 11:47 * Cardiology Consult CONS 03/03/25 Transmitted 11:55 * Wound Consult CONS 03/03/25 Transmitted Date of Service: Mar 04, 2025 Billing Provider: JJ VILLALPANDO MD Common Visit Codes: [id number] INP/OBS CARE(HIGH) PAWEL RIVERS RESIDENT Mar 04, 2025 11:23 JJ VILLALPANDO MD Mar 04, 2025 23:33
[2025-03-05] VITALS (7 sets, daily range): BP systolic 106–151; BP diastolic 66–84; PULSE 65–74; RESP 18–19; TEMP 97.2–98.8; O2SAT 94–99
[2025-03-05] MEDS: HYDROcodone-ACET 5/325MG TAB PO PRN (00:17)
[2025-03-05 07:50] LABS: Basophils # (auto) 0.1 10 ^3/uL (0-0.2); Basophils % (auto) 1.1 % (0.0-2.0); Eosinophils # (auto) 0.2 10 ^3/uL (0-0.8); Eosinophils % (auto) 2.5 % (0.0-7.0); Hematocrit 40.2 % (41.0-53.0); Hemoglobin 13.8 g/dL (13.5-17.5); Lymphocytes # (auto) 1.5 10 ^3/uL (0.4-5.4); Mean Corpuscular Hemoglobin 32.1 pg (28.0-32.0); Mean Corpuscular Hgb Conc. 34.3 g/dL (32.0-36.0); Mean Corpuscular Volume 93.8 fL (80.0-100.0); Monocytes # (auto) 0.9 10 ^3/uL (0-1.3); Monocytes % (auto) 13.4 % (0.0-12.0); Neutrophils # (auto) 4.1 10 ^3/uL (1.6-8.6); Nucleated Red Blood Cells % 0.1 %; Platelet Count (auto) 207 10^3/uL (140-450); Red Blood Cells 4.28 10^6/uL (4.5-5.90); Red Cell Distribution Width 14.5 % (11.8-14.3); White Blood Cell 6.8 10^3/uL (4.4-10.8)
[2025-03-05 08:09] LABS: Anion Gap 7 (5-15); Carbon Dioxide 29 mmol/L (20-31); Chloride 102 mmol/L (98-107); Potassium 3.6 mmol/L (3.5-5.1); Sodium 138 mmol/L (136-145)
[2025-03-05 08:10] LABS: Calcium 9.5 mg/dL (8.7-10.4)
[2025-03-05 08:15] LABS: BUN/Creatinine Ratio 21.9 (10.0-20.0); Blood Urea Nitrogen 21 mg/dL (9-23); Glucose 229 mg/dL (74-106)
[2025-03-05] MEDS: INSULIN LANTUS (GLARGINE) 1 /0.01ml (100units/ml) SC SCH (08:22)
--- NOTE | 2025-03-05 12:51 | ECG ---
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
--- NOTE | 2025-03-05 14:02 | DVHDSRES ---
Discharge Summary Date of Admission Resident Creating Document: PAWEL RIVERS RESIDENT Mar 03, 2025 at 00:17 Date of Discharge: Mar 05, 2025 Admitting Diagnosis Left lower extremity cellulitis Wounds: There is a crusted ulcer at the level of the left calf with cellulitis that has been resolving compared to admission. Labs/Diagnostic Data: Laboratory Results Test 03/05/25 08:07 03/05/25 06:36 03/04/25 05:21 03/03/25 08:07 POC Glucose 234 mg/dl (70-106) White Blood Count 6.8 10^3/uL (4.4-10.8) Red Blood Count 4.28 10^6/uL (4.5-5.90) Hemoglobin 13.8 g/dL (13.5-17.5) Hematocrit 40.2 % (41.0-53.0) Mean Corpuscular Volume 93.8 fL (80.0-100.0) Mean Corpuscular Hemoglobin 32.1 pg (28.0-32.0) Mean Corpuscular Hemoglobin Concent 34.3 g/dL (32.0-36.0) Red Cell Distribution Width 14.5 % (11.8-14.3) Platelet Count 207 10^3/uL (140-450) Mean Platelet Volume 8.5 fL (6.9-10.8) Neutrophils (%) (Auto) 61.0 % (37.0-80.0) Lymphocytes (%) (Auto) 22.0 % (10.0-50.0) Monocytes (%) (Auto) 13.4 % (0.0-12.0) Eosinophils (%) (Auto) 2.5 % (0.0-7.0) Basophils (%) (Auto) 1.1 % (0.0-2.0) Neutrophils # (Auto) 4.1 10 ^3/uL (1.6-8.6) Lymphocytes # (Auto) 1.5 10 ^3/uL (0.4-5.4) Monocytes # (Auto) 0.9 10 ^3/uL (0-1.3) Eosinophils # (Auto) 0.2 10 ^3/uL (0-0.8) Basophils # (Auto) 0.1 10 ^3/uL (0-0.2) Nucleated Red Blood Cells 0.1 % Sodium Level 138 mmol/L (136-145) Potassium Level 3.6 mmol/L (3.5-5.1) Chloride Level 102 mmol/L (98-107) Carbon Dioxide Level 29 mmol/L (20-31) Anion Gap 7 (5-15) Blood Urea Nitrogen 21 mg/dL (9-23) Creatinine 0.96 mg/dL (0.700-1.30) Glomerular Filtration Rate Calc 87 mL/min (>90) BUN/Creatinine Ratio 21.9 (10.0-20.0) Serum Glucose 229 mg/dL (74-106) Calcium Level 9.5 mg/dL (8.7-10.4) Vancomycin Level Trough 11.8 ug/mL (5-10) Total Bilirubin 0.4 mg/dL (0.2-1.0) Aspartate Amino Transferase (AST) 14 U/L (13-40) Alanine Aminotransferase (ALT) 22 U/L (7-40) Alkaline Phosphatase 114 U/L (46-116) Total Protein 6.5 g/dL (5.7-8.2) Albumin 3.9 g/dL (3.2-4.8) Hemoglobin A1c > 14.0 % A1C (<5.7) Test 03/02/25 23:34 03/02/25 22:17 03/02/25 22:00 03/02/25 20:50 Lactic Acid Level 1.7 mmol/L (0.4-2.0) Magnesium Level 2.1 mg/dL (1.6-2.6) Troponin I High Sensitivity 18 ng/L (</=54) Urine Color Colorless (Yellow) Urine Clarity Clear (Clear) Urine pH 6.0 (5.0-9.0) Urine Specific [place] 1.030 (1.001-1.035) Urine Protein Negative (Negative) Urine Ketones Negative (Negative) Urine Blood Negative /uL (Negative) Urine Nitrite Negative (Negative) Urine Bilirubin Negative (Negative) Urine Urobilinogen Normal mg/dL (Negative) Urine Leukocyte Esterase Negative /uL (Negative) Urine RBC <1 /hpf (0 - 3) Urine Microscopic WBC < 1 /HPF (0-3) Urine Squamous Epithelial Cells None seen /hpf (<5) Urine Bacteria None seen /hpf (None Seen) Urine Glucose 4+ mg/dL (Normal) Urine Opiates Screen Neg (NEGATIVE) Urine Fentanyl Screen Neg (NEGATIVE) Urine Barbiturates Screen Neg (NEGATIVE) Urine Phencyclidine Screen Neg (NEGATIVE) Urine Amphetamines Screen Neg (NEGATIVE) Urine Benzodiazepines Screen Neg (NEGATIVE) Urine Cocaine Screen Neg (NEGATIVE) Urine Cannabinoids Screen Neg (NEGATIVE) Blood Gas Specimen Type Arterial Blood Gas Sample Site Right radial Blood Gas Patient Temperature 37.0 Arterial Blood Date Drawn [id number] Arterial Blood pH 7.429 (7.350-7.450) Arterial Blood Partial Pressure CO2 38.3 mmHg (35.0-48.0) Arterial Blood Partial Pressure O2 61.3 mmHg (83.0-108.0) Arterial Blood HCO3 24.8 mmol/L (21.0-28.0) Arterial Blood Oxygen Saturation 90.8 % (94.0-98.0) Arterial Blood Base Excess 0.7 mmol/L (-2.0-3.0) Arterial Blood Oxyhemoglobin 89.2 % (94.0-98.0) Arterial Blood Carboxyhemoglobin 1.6 % (0.5-1.5) Arterial Blood Methemoglobin 0.2 % (0.0-1.5) Rosalino Test Yes Blood Gas Total Hemoglobin 15.20 g/dL (13.5-17.5) Blood Gas Modality Room air FiO2 % 21.0 B-Type Natriuretic Peptide 115.27 pg/mL (0-100) Lipase 46 U/L (12-53) Beta-Hydroxybutyric Acid 0.520 mmol/L (< 0.4) Other Laboratory Tests 03/05/25 06:36 Brief Hx & Hospital Course: This is a 64-year-old male with past medical history of hypertension, type 2 diabetes mellitus insulin dependent, dyslipidemia, who presented to the ED with chief complaint of left lower extremity pain and swelling. The patient reported that the pain and swelling started one week ago in his left calf and states that he thinks that he was bitten by a spider but he did not so any spider or insect at that time. The patient reports that the swelling and pain has recently gotten worse with more warm sensation in the left leg. The patient denied fever but reported recent chills before admission. On admission, the patient was having elevated blood glucose levels greater than 700 but anion gap was closed and patient was not in DKA at that time. Patient denied nausea, vomiting, chest pain, shortness of breath or any other complaints at that time. The patient was started on IV vancomycin and ceftriaxone for left lower extremity cellulitis. The left lower extremity cellulitis was demarcated with a marker. Today, the patient was seen and assessed at bedside. The patient states that cellulitis has been improving considerably and that the edema has been resolving considerably compared to admission. Patient states that he is able to ambulate without difficulties at this time. Patient denies fever/chills or any other associated symptoms at this time. We will discharge the patient on Bactrim p.o. two tablets a day for seven days. Patient needs to follow up closely with his PCP in one week for resolution of the cellulitis. Patient agrees and understands the plan. ROS Constitutional: Denies weight loss, fever and chills. HEENT: Denies changes in vision and hearing. Respiratory: Denies shortness of breath and cough Cardiovascular: Denies chest discomfort or palpitations GI: Denies abdominal pain, nausea, vomiting and diarrhea. : Denies dysuria and urinary frequency. Musculoskeletal: Reports very mild tenderness on deep palpation at the level of the cellulitis. Reported had been considerably improving compared to admission. Denies myalgias and joint pain Skin: Denies rash and pruritus. Neurological: Denies dizziness, headache, vision or hearing problems Physical Examination General: Patient alert and oriented in person, place and time. Patient following commands. HEENT: Normocephalic, atraumatic, moist mucous membranes Respiratory/pulmonary: Clear lungs bilaterally, vesicular murmurs present in almost all lung ferrell, no associated crackles or wheezes. Cardiovascular: Normal heart sounds S1 and S2 with no associated murmurs Abdomen: Abdomen nondistended, there is no pain to palpation in any of the abdominal quadrants, no palpable masses. Extremities: There is a left lower extremity cellulitis at the level of the left calf. There is an ulcerated crusted lesion in the left calf with surrounding erythema and swelling that has been improving significantly compared to admission. Peripheral Pulses: Pulses in the lower extremities were easily felt in the right lower extremity but not on the left lower extremity. Ultrasound Doppler was used to hear the pulses in the left lower extremity but were present in both posterior tibialis and dorsalis pedis arteries. 3+ Radial (R). 3+ Radial (L). 3+ Dorsalis pedis (R). 3+ Dorsalis pedis(L) Skin: No rashes or pruritus, there is no sacral edema present at this time. Neurological: Intact cranial nerves with no focal neurologic deficits Consults/Reason for consult N/A Operations or Procedures Lower extremity venous duplex Clinical History: R/O DVT Comparison: LUDVT on DOS: 10/17/22 Findings: Duplex Doppler evaluation of the deep venous systems of the left lower extremity from the common femoral veins to the popliteal veins including color Doppler and spectral/pulsed waveform analysis was performed. LEFT SIDE: The common femoral vein demonstrates appropriate compressibility and waveform variability . There is compressibility/patency of the great saphenous vein at the proximal thigh . The femoral vein demonstrates appropriate compressibility and waveform variability . The popliteal vein demonstrates appropriate compressibility and waveform variability . Impression: 1. No evidence for deep vein thrombosis. Clinical statement: determine the extention of cellulitis. R/O nec fasc Study: CT extremity without contrast. Technique: Noncontrast axial CT of the left lower extremity from the left knee 2 the left foot performed with coronal and sagittal reformatted images. Ordering physician: ELEAZAR HORTON RESIDENT Comparison: None Findings/Impression: Limited characterization without contrast. Small suprapatellar effusion. Extensive left lower extremity soft tissue edema and stranding which can be seen with cellulitis and other etiologies. This is especially pronounced in the ankle region and dorsum of the left foot. No definitive loculated collection seen. No soft tissue emphysema seen. Atherosclerotic calcification disease. No acute fracture. No osseous erosion/periostitis. Inferior calcaneal spurring. Condition at Discharge: Stable Final Diagnosis/Problems List Left lower extremity cellulitis at the level of the left calf Possible sepsis due to above Ruled out DVT Uncontrolled type 2 diabetes mellitus insulin-dependent, NO DKA Primary hypertension Dyslipidemia Hx of Afib Discharge Disposition: Home Discharge Instruct/Medications Diet: Regular Activity: No Restrictions, As Tolerated Follow Up/Referral: F/U with his PCP in 1 week F/U in [facility] clinic Medications: Clindamycin 300mg Q8 for 7 days Discharge Statement: "Patient was advised to return to the ER or call 911 if any headaches, dizziness, shortness of breath, chest pain, abdominal pain, bleeding, fevers, or worsening of medical condition. Patient was counseled about treatment plan, medications, possible side effects, patientverbalized understanding. All questions were answered to the best of my ability. This discharge took greater then 30 minutes in planning, reviewing documentation, counseling the patient, and discussing with other team members." ASSESSMENT ASSESSMENT Assessment Date of Service: Mar 05, 2025 Billing Provider: SARA FUNEZ MD Common Visit Codes: 84793-NBM/OBS DISCH DAY >30min PAWEL RIVERS RESIDENT Mar 05, 2025 14:02 SARA FUNEZ MD Mar 05, 2025 18:25
[2025-03-05] MEDS ORDERED: CLIN-203 PO (15:15)
[2025-03-05] MEDS ORDERED: INSLANTI SC (15:17)
== END 2025-03-05 17:00 | disposition home or self-care (01) | DRG 872 ==
LOC: ER 19:26 → OVERFLOW 03-03 00:17 → TELE-EAST 03-03 11:22 → EAST 03-05 07:41
PROVIDERS: ADMIT Internal Medicine; ATTEND Internal Medicine
DX: A41.9 Sepsis, unspecified organism (principal); L03.116 Cellulitis of left lower limb; E11.65 Type 2 diabetes mellitus with hyperglycemia; I10 Essential (primary) hypertension; E78.5 Hyperlipidemia, unspecified; F17.210 Nicotine dependence, cigarettes, uncomplicated; E66.9 Obesity, unspecified; I48.91 Unspecified atrial fibrillation; Z88.0 Allergy status to penicillin; Z83.3 Family history of diabetes mellitus; Z79.01 Long term (current) use of anticoagulants; Z79.899 Other long term (current) drug therapy; Z68.30 Body mass index [BMI] 30.0-30.9, adult
CPT/HCPCS: 36415; 36600; 73700; 80048; 80053; 80202; 80307; 81001; 82010; 82805; 82962; 83036; 83605; 83690; 83735; 83880; 84484; 85025; 87040; 87081; 90471; 90715; 93005; 93971; 96360; 96372; 99291; G0378; J0696; J1815; J2543

== ENCOUNTER 2025-06-19 23:06 | Inpatient (IN) | payer OTHER, MEDICAID ==
[~2025-06-19] VITALS: Ht 170.2 cm; Wt 93.9 kg
[~2025-06-19 23:06] MED LIST changes: -AMIO200T33 PO; -AMIT-400 PO; -CANA300T OR; +CLIN-203 PO; -DOXY-286 PO; -ERTU5TAB PO; -FERR-7 PO; -GABA-1250 PO; +INSLANTI SC; -PANT40T PO; -PIOG1TAB36 OR; -TRAM50TA2 PO
[2025-06-19] MEDS: AMIODARONE IV ONE (23:20)
[2025-06-19] MEDS: AMIODARONE HCL (50 MG/ ML) 3 ML VIAL IV ONE (23:20)
[2025-06-19] MEDS: SODIUM CHLORIDE 0.9% 1,000 ML IV ONE (23:20)
--- NOTE | 2025-06-19 23:35 | ED.PDOC ---
HPI Comments 64 year old male presents to the ED with a chief complaint of tachycardia onset today (06/19/25) about 3 hours prior to ED arrival. Patient has been experiencing shortness of breath and elevated HR for the past week, noticed worsen today, came to ED. Upon ED arrival, patient's EKG was HR 231, patient was diaphoretic. PMHx DM-insulin dependent, HLD, HTN. No other symptoms or modifying factors present at this time. Chief Complaint: Shortness of Breath Time Seen by MD: 23:20 Primary Care Provider: DAVID Reviewed Notes: Medications, Allergies Allergies: Coded Allergies: Amoxicillin (Verified Allergy, Unknown, 11/01/22) Home Meds Active Scripts Insulin Glargine (Lantus) 100 Unit/Ml Inj, 30 UNIT SC QPM for 30 Days, #1 INJ Prov:PAWEL RIVERS RESIDENT 03/05/25 Clindamycin HCl (Clindamycin Hydrochloride) 300 Mg Cap, 300 MG PO Q8HR for 7 Days, #21 CAP Prov:PAWEL RIVERS RESIDENT 03/05/25 Lancets (Freestyle Lancets) Lancets Mis, BOTTLE XX TIDWM, #120 Prov:LUIS BEDOYA MD 10/29/22 Blood Glucose Monitoring Suppl (D-Care Glucometer Kit/Glu W/Device) 1 Kit Kit, KIT XX TIDWMEALS, #1 Prov:LUIS BEDOYA MD 10/29/22 Insulin Glargine (Lantus Solostar) 100 Unit/Ml Inj, 18 UNIT SC DAILY@BREAKFAST, #10 INJ Prov:LUIS BEDOYA MD 10/29/22 Carvedilol (Carvedilol) 3.125 Mg Tab, 1 TAB PO BID, #60 TAB Prov:LUIS BEDOYA MD 10/29/22 Apixaban Base (ELIQUIS) 5 Mg Tab, 5 MG PO BID for 30 Days, #60 TAB Prov:LUIS BEDOYA MD 10/29/22 Verapamil HCl (Verapamil Hydrochloride) 120 Mg Tab, 1 TAB PO BID, #60 TAB Prov:CIRILO DRAPER MD 10/18/22 Reported Medications Montelukast Sodium (MONTELUKAST SODIUM) 10 Mg Tab, 1 TAB PO DAILY 10/17/22 Lisinopril (Lisinopril) 10 Mg Tab, 5 MG PO DAILY, TAB 05/15/17 Methocarbamol (Methocarbamol) 750 Mg Tab, 750 MG PO Q8HR, TAB 05/15/17 Aspirin (Aspirin Ec) 81 Mg Tab, 81 MG PO DAILY, TAB 05/15/17 Atorvastatin Calcium (Lipitor) 20 Mg Tab, 1 TAB PO DAILY, #90 TAB 1 Refill 05/15/17 Information Source: Patient, Relative Mode of Arrival: Wheelchair Severity: Moderate Timing: Weeks Duration: Since onset Prehospital treatment: None Associated Signs and Symptoms: SOB Past Medical History PAST MEDICAL HISTORY: DM, High Lipids, HTN Surgical History: Denies all surgeries Family History Family History: Reviewed,noncontributory to illness, Family hx of DM, Family hx of Cancer Social History Smoker: Cigarettes, Greater Than 1 Pack/Day Alcohol: Occasionally Drugs: Marijuana, Methamphetamine Lives In: Home Constitutional: denies: chills, diaphoresis, fatigue, fever, malaise, sweats, weakness, others EENTM: denies: blurred vision, double vision, ear bleeding, ear discharge, ear drainage, ear pain, ear ringing, eye pain, eye redness, hearing loss, mouth pain, mouth swelling, nasal discharge, nose bleeding, nose congestion, nose pain, photophobia, tearing, throat pain, throat swelling, voice changes, others Respiratory: reports: shortness of breath; denies: cough, hemoptysis, orthopnea, SOB at rest, SOB with excertion, stridor, wheezing, others Cardiovascular: reports: others (tachycardia); denies: chest pain, dizzy spells, diaphoresis, Dyspnea on exertion, edema, irregular heart beat, left arm pain, lightheadedness, palpitations, PND, syncope Gastrointestinal: denies: abdomen distended, abdominal pain, blood streaked bowels, constipated, diarrhea, dysphagia, difficulty swallowing, hematemesis, melena, nausea, poor appetite, poor fluid intake, rectal bleeding, rectal pain, vomiting, others Genitourinary: denies: burning, dysuria, flank pain, frequency, hematuria, incontinence, penile discharge, penile sore, pain, testicle pain, testicle swelling, urgency, others Neurological: denies: dizziness, fainting, headache, left sided numbness, left sided weakness, numbness, paresthesia, pre-existing deficit, right sided numbness, right sided weakness, seizure, speech problems, tingling, tremors, weakness, others Musculoskeletal: denies: back pain, gout, joint pain, joint swelling, muscle pain, muscle stiffness, neck pain, others Integumetry: denies: bruises, change in color, change in hair/nails, dryness, laceration, lesions, lumps, rash, wounds, others Allergic/Immunocompromised: denies: Difficulty Healing, Frequent Infections, Hives, Itching, others Hematologic/Lymphatic: denies: anemia, blood clots, easy bleeding, easy b ruising, swollen glands, others Endocrine: denies: excessive hunger, excessive sweating, excessive thirst, excessive urination, flushing, intolerance to cold, intolerance to heat, unexplained weight gain, unexplained weight loss, others Psychiatric: denies: anxiety, bipolar disorder, depression, hopeless, panic disorder, schizophrenia, sleepless, suicidal, others All Other Systems: Reviewed and Negative Physical Exam General Appearance: Other (diaphoretic) HEENT: Normal ENT Inspection, Pharynx Normal, TMs Normal Neck: Full Range of Motion, Non-Tender, Normal, Normal Inspection Respiratory: No Respiratory Distress Cardiovascular: Tachycardia Breast Exam: Deferred Gastrointestinal: No Organomegaly, Non Tender, No Pulsatile Mass, Normal Bowel Sounds, Soft Genitalia: Deferred Pelvic: Deferred Rectal: Deferred Extremities: No calf tenderness, Normal capillary refill, Normal inspection, Normal range of motion, Non-tender, No pedal edema Musculoskeletal : Apperance: Normal Neurologic: Alert, tenant coordinator II-XII nml as Tested, No Motor Deficits, Normal Affect, Normal Mood, No Sensory Deficits Cerebellar Function: Normal Reflexes: Normal Skin: Dry, Normal Color, Warm Lymphatic: No Adenopathy Was a procedure done? Was a procedure done?: No CP Differential Dx Differential Diagnosis: MAT, IN, PAC's, Torsades De Pointes, V-Tach Differential Diagnosis: HTN Essential, HTN Accelerated Differential Diagnosis: Myocardial Infarction, Pericarditis X-Ray, Labs, Meds, VS Vital Signs Date Time Temp Pulse Resp B/P (MAP) Pulse Ox O2 Delivery O2 Flow Rate FiO2 06/20/25 00:30 97.7 114 15 151/107 (122) 100 97.7 06/20/25 00:00 113 06/19/25 23:28 109 7/23/25 23:28 97.5 231 18 144/122 (129) 96 97.5 06/19/25 23:15 Nasal Cannula* 4 36 06/19/25 23:11 231 Lab Test 06/20/25 00:25 06/19/25 23:25 Range/Units Troponin I High Sensitivity Pending 37 </=54 ng/L White Blood Count 7.4 4.4-10.8 10^3/uL Red Blood Count 5.42 4.5-5.90 10^6/uL Hemoglobin 17.1 13.5-17.5 g/dL Hematocrit 52.3 41.0-53.0 % Mean Corpuscular Volume 96.5 80.0-100.0 fL Mean Corpuscular Hemoglobin 31.5 28.0-32.0 pg Mean Corpuscular Hemoglobin Concent 32.6 32.0-36.0 g/dL Red Cell Distribution Width 14.7 H 11.8-14.3 % Platelet Count 273 140-450 10^3/uL Mean Platelet Volume 9.0 6.9-10.8 fL Neutrophils (%) (Auto) 61.5 37.0-80.0 % Lymphocytes (%) (Auto) 27.8 10.0-50.0 % Monocytes (%) (Auto) 8.4 0.0-12.0 % Eosinophils (%) (Auto) 1.6 0.0-7.0 % Basophils (%) (Auto) 0.7 0.0-2.0 % Neutrophils # (Auto) 4.5 1.6-8.6 10 ^3/uL Lymphocytes # (Auto) 2.0 0.4-5.4 10 ^3/uL Monocytes # (Auto) 0.6 0-1.3 10 ^3/uL Eosinophils # (Auto) 0.1 0-0.8 10 ^3/uL Basophils # (Auto) 0 0-0.2 10 ^3/uL Nucleated Red Blood Cells 0.0 % Sodium Level 132 L 136-145 mmol/L Potassium Level 4.9 3.5-5.1 mmol/L Chloride Level 98 98-107 mmol/L Carbon Dioxide Level 19 L 20-31 mmol/L Anion Gap 15 5-15 Blood Urea Nitrogen 14 9-23 mg/dL Creatinine 1.37 H 0.700-1.30 mg/dL Glomerular Filtration Rate Calc 57 >90 mL/min BUN/Creatinine Ratio 10.2 10.0-20.0 Serum Glucose 659 *H 74-106 mg/dL Lactic Acid Level 4.4 *H 0.4-2.0 mmol/L Calcium Level 9.4 8.7-10.4 mg/dL Phosphorus Level 4.1 2.4-5.1 mg/dL Magnesium Level 2.3 1.6-2.6 mg/dL B-Type Natriuretic Peptide 104.18 0-100 pg/mL Beta-Hydroxybutyric Acid 1.396 H < 0.4 mmol/L Current Medications Medications (Trade) Dose Ordered Sig/Karon Route Start Time Stop Time Status Last Admin Sodium Chloride 1,000 ml @ 1,000 mls/hr Q1H ONCE IV 06/19/25 23:30 06/20/25 00:29 DC 06/19/25 23:20 Calcium Gluconate/ Sodium Chloride 50 ml @ 100 mls/hr Q30M IV 06/19/25 23:30 06/20/25 00:29 DC 06/20/25 00:22 Sodium Chloride 1,000 ml @ 1,000 mls/hr Q1H ONCE IV 06/20/25 00:15 06/20/25 01:14 DC 06/20/25 00:30 Amiodarone HCl 200 ml @ 600 mls/hr ONCE ONCE IV 06/20/25 00:15 06/20/25 00:34 DC 06/19/25 23:20 [place] [id number] Ph: [phone] DIAGNOSTIC IMAGING Diagnostic Imaging Report : [id number] Signed PATIENT: YURI DILLON SRCCT: [id number] UNIT: [id number] : 1960 LOC: ER ROOM / BED: / AGE / SEX: 64 / M ADM STATUS: REG ER SERVICE [id number] ORDERING PHYSICIAN: JERRI ADRIAN MD PROCEDURE(s): CXRP - CHEST PORTABLE REASON: tachy ORDER NUMBER(s): [id number], ACCESSION NUMBER(s): [id number] CHEST RADIOGRAPH REASON FOR EXAM: Tachycardia COMPARISON: CXRP on DOS: 01/09/23, CHEST PORTABLE on DOS: 01/09/23, CXRP on DOS: 11/06/22, CHEST PORTABLE on DOS: 11/06/22, CHEST PORTABLE on DOS: 11/03/22 TECHNIQUE: One view of the chest is provided FINDINGS: Evaluation is degraded by lordotic patient positioning. The cardiomediastinal silhouette is borderline enlarged. There are low inspiratory volumes causing crowding and exaggeration of the pulmonary markings. There is no lobar consolidation. There is no significant pleural effusion. There is no pneumothorax. IMPRESSION: Evaluation suboptimal due to patient positioning. No lobar consolidation. Low inspiratory volumes. ATED BY: SUMANTH FITCH MD DICTATED DATE/TIME: 06/20/2558 SIGNED BY: SUMANTH FITCH MD SIGNED DATE/TIME: 06/20/2558 CC: Time of 1ST Reevaluation: 23:50 Reevaluation 1ST: Unchanged Patient Education/Counseling: Diagnosis, Treatment, Prognosis Family Education/Counseling: Diagnosis, Treatment, Prognosis SEPSIS Sepsis Screen Physician Orders Blood Culture (06/19/25 23:29) Urinalysis (06/19/25 23:29) Chest Portable (06/19/25 23:29) Troponin-I Hs (06/20/25 00:29) Troponin-I Hs (06/20/25 02:29) Electrocardigram (06/19/25 23:35) Insulin R (Human) (Insulin R) (06/20/25 01:15) Vital Signs Date Time Temp Pulse Resp B/P (MAP) Pulse Ox O2 Delivery O2 Flow Rate FiO2 06/20/25 00:30 97.7 114 15 151/107 (122) 100 97.7 06/20/25 00:00 113 06/19/25 23:28 109 06/19/25 23:28 97.5 231 18 144/122 (129) 96 97.5 06/19/25 23:15 Nasal Cannula* 4 36 06/19/25 23:11 231 Laboratory Tests Test 06/19/25 23:25 Lactic Acid Level 4.4 mmol/L (0.4-2.0) *H White Blood Count 7.4 10^3/uL (4.4-10.8) Medications Medications Dose Ordered Sig/Karon Route Start Time Stop Time Status Last Admin Dose Admin Amiodarone HCl 200 ml @ 600 mls/hr ONCE ONCE IV 06/20/25 00:15 06/20/25 00:34 DC 06/19/25 23:20 Calcium Gluconate/ Sodium Chloride 50 ml @ 100 mls/hr Q30M IV 06/19/25 23:30 06/20/25 00:29 DC 06/20/25 00:22 Sodium Chloride 1,000 ml @ 1,000 mls/hr Q1H ONCE IV 06/19/25 23:30 06/20/25 00:29 DC 06/19/25 23:20 Sodium Chloride 1,000 ml @ 1,000 mls/hr Q1H ONCE IV 06/20/25 00:15 06/20/25 01:14 DC 06/20/25 00:30 Departure 1 Departure Time of Disposition: 01: (Patient presented in V-tach. Patient was given 300 of amnio and that converted the patient to a sinus arrhythmia with a ectopic beats. Patient found to be hyperglycemic but without an anion gap. We will empirically cover patient with the fluids and give insulin. We will admit patient for further workup and expert consultation) Impression: Primary Impression: V tach Additional Impressions: Palpitations Uncontrolled diabetes mellitus Qualified Codes: E11.65 - Type 2 diabetes mellitus with hyperglycemia Disposition: ADMITTED INPATIENT Admit to: Tele Condition: Guarded Critical Care Note Critical Care Time?: Yes Critical care comment: V-tach Authorized and Performed by: Jerri Adrian MD Total critical care time: Approximately 111 minutes Due to a high probability of clinically significant, life threatening deterioration, the patient required my highest level of preparedness to intervene emergently and I personally spent this critical care time directly and personally managing the patient. This critical care time included obtaining a history; examining the patient; pulse oximetry; ordering and review of studies; arranging urgent treatment with development of a management plan; evaluation of patient's response to treatment; frequent reassessment; and, discussions with other providers. This critical care time was performed to assess and manage the high probability of imminent, life-threatening deterioration that could result in multi-organ failure. It was exclusive of separately billable procedures and treating other patients and teaching time. Please see my other sections and the rest of the note for further information on patient assessment and treatment. Stability Stability form required: No Heart Score Heart Score: Heart Score Response (Comments) Value History Moderate Suspicious [address]-Deviation 2 Age >65 2 Risk Factors >3 or Hx ASHD 2 Troponin 1-2 x's Normal limit 1 Total 8 I personally scribed for JERRI ADRIAN MD ([email or web address]) on 06/19/25 at 23:35. Electronically submitted by Delicia Resendiz ([email or web address]). I personally scribed for JERRI ADRIAN MD ([email or web address]) on 06/20/25 at 01:14. Electronically submitted by Delicia Resendiz ([email or web address]). JERRI ADRIAN MD Jun 19, 2025 23:35
[2025-06-19 23:43] LABS: Hematocrit 52.3 % (41.0-53.0); Hemoglobin 17.1 g/dL (13.5-17.5); Mean Corpuscular Hemoglobin 31.5 pg (28.0-32.0); Mean Corpuscular Volume 96.5 fL (80.0-100.0); Nucleated Red Blood Cells % 0.0 %
[2025-06-19 23:52] LABS: Chloride 98 mmol/L (98-107); Potassium 4.9 mmol/L (3.5-5.1)
[2025-06-19 23:53] LABS: Anion Gap 15 (5-15)
[2025-06-19 23:54] LABS: Calcium 9.4 mg/dL (8.7-10.4)
[2025-06-19] MEDS: CALCIUM GLUC 1,000mg/50ml-NS 50 ML IV SCH (23:54)
[2025-06-19 23:55] LABS: Carbon Dioxide 19 mmol/L (20-31); Sodium 132 mmol/L (136-145)
[2025-06-19 23:58] LABS: BUN/Creatinine Ratio 10.2 (10.0-20.0); Blood Urea Nitrogen 14 mg/dL (9-23)
[2025-06-19 23:59] LABS: Magnesium 2.3 mg/dL (1.6-2.6)
[2025-06-20] VITALS (8 sets, daily range): BP systolic 138–163; BP diastolic 80–106; PULSE 72–120; RESP 16–20; TEMP 96.2–97.7; O2SAT 91–98
[2025-06-20 00:01] LABS: Glucose 659 mg/dL (74-106)
[2025-06-20 00:03] LABS: Lactic Acid w/Reflex 4.4 mmol/L (0.4-2.0)
[2025-06-20] MEDS: SODIUM CHLORIDE 0.9% 1,000 ML IV ONE (00:30)
--- NOTE | 2025-06-20 01:01 | DVH ---
CHEST RADIOGRAPH REASON FOR EXAM: Tachycardia COMPARISON: CXRP on DOS: 01/09/23, CHEST PORTABLE on DOS: 01/09/23, CXRP on DOS: 11/06/22, CHEST PORTAB LE on DOS: 11/06/22, CHEST PORTABLE on DOS: 11/03/22 TECHNIQUE: One view of the chest is provided FINDINGS: Evaluation is degraded by lordotic patient positioning. The cardiomediastinal silhouette i s borderline enlarged. There are low inspiratory volumes causing crowding and exaggeration of the pul monary markings. There is no lobar consolidation. There is no significant pleural effusion. There is no pneumothorax. IMPRESSION: Evaluation suboptimal due to patient positioning. No lobar consolidation. Low inspiratory volumes.
[2025-06-20] MEDS: InsuLIN REG 1unit/0.01ml Soln (100units/ml) IV ONE (01:39)
[2025-06-20 02:21] LABS: Urine Protein, UAD TRACE (Negative)
--- NOTE | 2025-06-20 04:13 | DVHHP2 ---
History of Present Illness Reason for Visit: Shortness for breath History of Present Illness 64-year-old male presented initially with complaints of shortness for breath. On arrival patient was noted to be in ventricular tachycardia with a rate of 230. Patient was given a bolus of amiodarone converting to sinus tachycardia. Denies chest pain or dizziness. No nausea or vomiting. No other acute complaints reported. Past Medical History Hypertension, dyslipidemia, diabetes mellitus Past Surgical History Denies Family History Noncontributory Smoke: <1 pack per day ALCOHOL: occassional Drugs: Marijuana Review of Systems Review of Systems Review of systems are currently negative otherwise addressed in HPI. Allergies: Coded Allergies: Amoxicillin (Verified Allergy, Unknown, 11/01/22) Medications Current Medications Medications Dose Ordered Sig/Karon Route Start Time Stop Time Status Last Admin Dose Admin Apixaban 5 mg BID PO 06/20/25 10:00 UNV Aspirin 81 mg DAILY PO 06/20/25 10:00 UNV Atorvastatin Calcium 20 mg HS PO 06/20/25 22:00 UNV Carvedilol 3.125 mg Q12HR PO 06/20/25 10:00 UNV Lisinopril 10 mg DAILY PO 06/20/25 10:00 UNV Verapamil HCl 120 mg BID PO 06/20/25 10:00 UNV Albuterol 2.5 mg Q6HPRN PRN NEB 06/20/25 04:15 UNV Diagnostic Test (Pha) 1 strip IQ4HR 06/20/25 08:00 UNV Insulin Human Regular IQ4HR SC 06/20/25 08:00 UNV Dextrose 50 ml UD PRN IV 06/20/25 04:15 UNV Ondansetron HCl 4 mg Q4HP PRN IV 06/20/25 04:15 UNV Acetaminophen 650 mg Q6HP PRN PO 06/20/25 04:15 UNV Nitroglycerin 0.4 mg Q5MINP PRN SL 06/20/25 04:15 UNV Morphine Sulfate 2 mg Q30M PRN IV 06/20/25 04:15 UNV Exam Vital Signs Vital Signs Date Time Temp Pulse Resp B/P (MAP) Pulse Ox O2 Delivery O2 Flow Rate FiO2 06/20/25 00:30 97.7 114 15 151/107 (122) 100 97.7 06/19/25 23:15 Nasal Cannula* 4 36 Exam Gen: 64-year-old male in mild distress Skin: Warm, dry, normal color and texture, no rash. HEENT: Normocephalic atraumatic, mucous membranes moist and pink. Neck: Cervical and supraclavicular nodes normal without enlargement, trachea is midline, thyroid gland is normal without masses. Pulmonary: Clear to auscultation and percussion bilaterally. Cardiac: Sinus tachycardia Abdomen: Soft, nontender, nondistended, bowel sounds present all 4 quadrants, no guarding, no rigidity, no organomegaly. Extremities: No cyanosis, clubbing, no edema Neuro: Cranial nerves II through XII grossly intact, normal affect and speech, no focal motor deficits. Labs/Xrays ORDERING PHYSICIAN: JERRI ADRIAN MD PROCEDURE(s): CXRP - CHEST PORTABLE REASON: tachy ORDER NUMBER(s): [id number], ACCESSION NUMBER(s): [id number] CHEST RADIOGRAPH REASON FOR EXAM: Tachycardia COMPARISON: CXRP on DOS: 01/09/23, CHEST PORTABLE on DOS: 01/09/23, CXRP on DOS: 11/06/22, CHEST PORTABLE on DOS: 11/06/22, CHEST PORTABLE on DOS: 11/03/22 TECHNIQUE: One view of the chest is provided FINDINGS: Evaluation is degraded by lordotic patient positioning. The card iomediastinal silhouette is borderline enlarged. There are low inspiratory volumes causing crowding and exaggeration of the pulmonary markings. There is no lobar consolidation. There is no significant pleural effusion. There is no pneumothorax. IMPRESSION: Evaluation suboptimal due to patient positioning. No lobar consolidation. Low inspiratory volumes. ATED BY: SUMANTH HERNANDEZ MD Labs Test 06/20/25 02:30 06/20/25 02:08 06/20/25 01:26 06/20/25 01:22 Range/Units Troponin I High Sensitivity 23 </=54 ng/L Urine Color Light-yellow Yellow Urine Clarity Clear Clear Urine pH 5.5 5.0-9.0 Urine Specific [place] 1.028 1.001-1.035 Urine Protein Trace H Negative Urine Ketones 1+ H Negative Urine Blood Negative Negative /uL Urine Nitrite Negative Negative Urine Bilirubin Negative Negative Urine Urobilinogen Normal Negative mg/dL Urine Leukocyte Esterase Negative Negative /uL Urine RBC 1 0 - 3 /hpf Urine Microscopic WBC < 1 0-3 /HPF Urine Squamous Epithelial Cells None seen <5 /hpf Urine Bacteria None seen None Seen /hpf Urine Glucose 4+ H Normal mg/dL Lactic Acid Level 3.8 *H 0.4-2.0 mmol/L POC Glucose 520 *H 70-106 mg/dl Test 06/19/25 23:25 Range/Units White Blood Count 7.4 4.4-10.8 10^3/uL Red Blood Count 5.42 4.5-5.90 10^6/uL Hemoglobin 17.1 13.5-17.5 g/dL Hematocrit 52.3 41.0-53.0 % Mean Corpuscular Volume 96.5 80.0-100.0 fL Mean Corpuscular Hemoglobin 31.5 28.0-32.0 pg Mean Corpuscular Hemoglobin Concent 32.6 32.0-36.0 g/dL Red Cell Distribution Width 14.7 H 11.8-14.3 % Platelet Count 273 140-450 10^3/uL Mean Platelet Volume 9.0 6.9-10.8 fL Neutrophils (%) (Auto) 61.5 37.0-80.0 % Lymphocytes (%) (Auto) 27.8 10.0-50.0 % Monocytes (%) (Auto) 8.4 0.0-12.0 % Eosinophils (%) (Auto) 1.6 0.0-7.0 % Basophils (%) (Auto) 0.7 0.0-2.0 % Neutrophils # (Auto) 4.5 1.6-8.6 10 ^3/uL Lymphocytes # (Auto) 2.0 0.4-5.4 10 ^3/uL Monocytes # (Auto) 0.6 0-1.3 10 ^3/uL Eosinophils # (Auto) 0.1 0-0.8 10 ^3/uL Basophils # (Auto) 0 0-0.2 10 ^3/uL Nucleated Red Blood Cells 0.0 % Sodium Level 132 L 136-145 mmol/L Potassium Level 4.9 3.5-5.1 mmol/L Chloride Level 98 98-107 mmol/L Carbon Dioxide Level 19 L 20-31 mmol/L Anion Gap 15 5-15 Blood Urea Nitrogen 14 9-23 mg/dL Creatinine 1.37 H 0.700-1.30 mg/dL Glomerular Filtration Rate Calc 57 >90 mL/min BUN/Creatinine Ratio 10.2 10.0-20.0 Serum Glucose 659 *H 74-106 mg/dL Calcium Level 9.4 8.7-10.4 mg/dL Phosphorus Level 4.1 2.4-5.1 mg/dL Magnesium Level 2.3 1.6-2.6 mg/dL B-Type Natriuretic Peptide 104.18 0-100 pg/mL Beta-Hydroxybutyric Acid 1.396 H < 0.4 mmol/L SEPSIS Sepsis Screen Date sepsis recognized/suspect: Jun 19, 2025 Time Sepsis recognized/suspect: 2334 Recent Procedure: No On Antibiotic Therapy: No Respiratory Rate >20: No Heart Rate >90: Yes Temp<36 C (96.8 F) or >38.3 C: No SBP <90 or MAP <65 mmHG: No New Acute Mental Status Change: No Is the patient on CPAP, BIPAP,: No Physician Orders Blood Culture (06/19/25 23:29) Chest Portable (06/19/25 23:29) Electrocardigram (06/19/25 23:35) Apixaban (Eliquis) (06/20/25 10:00) * Cardiology Consult (06/20/25 04:01) Aspirin Tablet (06/20/25 10:00) Atorvastatin (Lipitor) (06/20/25 22:00) Carvedilol Tablet (Coreg Tablet) (06/20/25 10:00) Lisinopril Tablet (Zestril Tablet) (06/20/25 10:00) Verapamil Er (Calan Sr) (06/20/25 10:00) Albuterol Medneb (Ventolin Medneb) (06/20/25 04:15) Basic Metabolic Panel (06/21/25 04:00) Glucose Blood (Accu-Chek Comfort Curve T (06/20/25 08:00) Insulin R (Human) (Insulin R) (06/20/25 08:00) Dextrose 50% Syringe (06/20/25 04:15) Admit (06/20/25 04:01) Ondansetron Hcl (Zofran) (06/20/25 04:15) Cardiac Diet-2gna,Lofat,Lochol (06/20/25 Breakfast) Echo 2d Mode Cardiac Dop (06/20/25 04:01) Condition: Fair (06/20/25 04:01) Acetaminophen Tablet (Tylenol Tablet) (06/20/25 04:15) Bedrest With Bathroom Privileg (06/20/25 04:01) Nitroglycerin Sublingual (Ntrostat Subli (06/20/25 04:15) Morphine Sulfate Injection (06/20/25 04:15) Stat Ekg For Chest Pain (06/20/25 04:01) Notify Of Changes From Base (06/20/25 04:01) Manufacturing Assistant For 24 Hours (06/20/25 04:01) Emergency Dysrhythmia Protocol (06/20/25 04:01) Rhythm Strips Once Every Shift (06/20/25 04:01) Oxygen By Nasal Cannula (06/20/25 04:01) Drug Screen (06/20/25 04:06) Vital Signs Date Time Temp Pulse Resp B/P (MAP) Pulse Ox O2 Delivery O2 Flow Rate FiO2 06/20/25 00:30 97.7 114 15 151/107 (122) 100 97.7 06/20/25 00:00 113 06/19/25 23:28 109 06/19/25 23:28 97.5 231 18 144/122 (129) 96 97.5 06/19/25 23:15 Nasal Cannula* 4 36 06/19/25 23:11 231 Laboratory Tests Test 06/19/25 23:25 06/20/25 01:26 Lactic Acid Level 4.4 mmol/L (0.4-2.0) *H 3.8 mmol/L (0.4-2.0) *H White Blood Count 7.4 10^3/uL (4.4-10.8) Medications Medications Dose Ordered Sig/Karon Route Start Time Stop Time Status Last Admin Dose Admin Amiodarone HCl 200 ml @ 600 mls/hr ONCE ONCE IV 06/20/25 00:15 06/20/25 00:34 DC 06/19/25 23:20 600 MLS/HR Calcium Gluconate/ Sodium Chloride 50 ml @ 100 mls/hr Q30M IV 06/19/25 23:30 06/20/25 00:29 DC 06/20/25 00:22 100 MLS/HR Insulin Human Regular 10 units ONCE ONCE IV 06/20/25 01:15 06/20/25 01:33 DC 06/20/25 01:39 10 UNITS Sodium Chloride 1,000 ml @ 1,000 mls/hr Q1H ONCE IV 06/19/25 23:30 06/20/25 00:29 DC 06/19/25 23:20 1,000 MLS/HR Sodium Chloride 1,000 ml @ 1,000 mls/hr Q1H ONCE IV 06/20/25 00:15 06/20/25 01:14 DC 06/20/25 00:30 1,000 MLS/HR Assessment/Plan Assessment/Plan Assessment Regular tachycardia Uncontrolled diabetes mellitus Hypertension Plan Admit the patient to telemetry to the hospitalist Cardiology consultation Echocardiogram pending Resume home medications Continue treatment per orders. Plan discussed with: Patient My Orders Orders - ELEAZAR HORTON AGACNP Procedure Category Date Status Time Apixaban (Eliquis) PHA 06/20/25 Logged 10:00 * Cardiology Consult CONS 06/20/25 Transmitted 04:01 Aspirin Tablet PHA 06/20/25 Logged 10:00 Atorvastatin (Lipitor) PHA 06/20/25 Logged 22:00 Carvedilol Tablet PHA 06/20/25 Logged (Coreg Tablet) 10:00 Lisinopril Tablet PHA 06/20/25 Logged (Zestril Tablet) 10:00 Verapamil Er (Calan PHA 06/20/25 Logged Sr) 10:00 Albuterol Medneb PHA 06/20/25 Logged (Ventolin Medneb) 04:15 Basic Metabolic Panel LAB 06/21/25 Verified 04:00 Glucose Blood PHA 06/20/25 Logged (Accu-Chek Comfort 08:00 Insulin R (Human) PHA 06/20/25 Logged (Insulin R) 08:00 Dextrose 50% Syringe PHA 06/20/25 Logged 04:15 Admit ADMIT 06/20/25 Transmitted 04:01 Ondansetron Hcl PHA 06/20/25 Logged (Zofran) 04:15 Cardiac DIET 06/20/25 Transmitted Diet-2gna,Lofat,Lochol Breakfast Echo 2d Mode Cardiac US 06/20/25 Logged DOP 04:01 Condition: Fair SHASHI 06/20/25 In Process 04:01 Acetaminophen Tablet [facility] 06/20/25 Logged (Tylenol Tablet) 04:15 Bedrest With Bathroom [facility] 06/20/25 In Process Privileg 04:01 Nitroglycerin [facility] 06/20/25 Logged Sublingual (Ntrostat 04:15 Morphine Sulfate [facility] 06/20/25 Logged Injection 04:15 Stat Ekg For Chest [facility] 06/20/25 In Process Pain 04:01 Notify Md Of Changes [facility] 06/20/25 In Process From Base 04:01 Manufacturing Assistant For [facility] 06/20/25 In Process 24 Hours 04:01 Emergency Dysrhythmia [facility] 06/20/25 In Process Protocol 04:01 Rhythm Strips Once [facility] 06/20/25 In Process Every Shift 04:01 Oxygen By Nasal RT 06/20/25 Transmitted Cannula 04:01 Drug Screen LAB 06/20/25 Logged 04:06 Date of Service: Jun 20, 2025 Billing Provider: ELEAZAR HORTON Common Visit Codes: [id number] INP/OBS CARE (HIGH) ELEAZAR HORTON Jun 20, 2025 04:13
[2025-06-20] MEDS ORDERED: MORPHINE SULFATE INJ 2 MG/ml SYRG IV PRN (04:15)
[2025-06-20] MEDS ORDERED: DEXTROSE (50%) 50ML SYRG IV PRN ×2 (04:15→12:30)
[2025-06-20] MEDS ORDERED: ACETAMINOPHEN 325 MG TAB PO PRN (04:15)
[2025-06-20] MEDS ORDERED: NITROGLYCERIN 0.4 MG SL TAB SL PRN (04:15)
[2025-06-20] MEDS: dilTIAZem 25 MG/5 ML VIAL IV ONE (04:18)
[2025-06-20] MEDS: LABETALOL HCL 20 MG/4 ML VL IV ONE (05:00)
[2025-06-20] MEDS: ACCU-CHEK COMFORT CURVE STRIP VI SCH ×2 (08:00→16:56)
[2025-06-20] MEDS: InsuLIN REG 1unit/0.01ml Soln (100units/ml) SC SCH ×3 (08:00→21:33)
[2025-06-20] MEDS ORDERED: VERAPAMIL HCL 120 mg ER tab PO SCH (10:00)
[2025-06-20 10:02] LABS: Cannabinoid Screen, Urine Neg (NEGATIVE)
[2025-06-20 10:03] LABS: Amphetamine Screen, Urine Pos (NEGATIVE); Barbiturate Scree,Urine Neg (NEGATIVE); Benzodiazephine Screen, Urine Neg (NEGATIVE); Cocaine Screen, Urine Neg (NEGATIVE); Opiate Scree,Urine Neg (NEGATIVE); Phencyclidine Screen, Urine Neg (NEGATIVE)
--- NOTE | 2025-06-20 10:44 | DVHCONRES ---
Date Seen: Jun 20, 2025 Resident Creating Document: JAVED HER RESDIENT History of Present Illness This is a 64-year-old male with past medical history of hypertension, diabetes, dyslipidemia, CHF came to the hospital with a shortness of breaths. Per patient, he suddenly developed shortness of breaths while he was on the couch 2 hours before coming to the hospital. Upon arrival to ER the patient was found to have ventricular tachycardia with heart rate at 200s. Patient was given a bolus amiodarone and reverted to sinus rhythm. Patient, he had history of cardiac arrest 3 years back and achieved ROSC with CPR in [facility] [place], but there is no record available. PMHx: hypertension, diabetes, dyslipidemia, CHF Social history: Ex-smoker with 10 pack year history Home medication: Insulin, amlodipine, aspirin, atorvastatin, brimonidine, clonidine, gabapentin, losartan, metoprolol, metformin and trazodone Allergic history: Amoxicillin Patient seen and examined at the bedside. Patient is currently has no active symptoms including shortness of breath. Family History: Cancer G8 FATHER Family history: Diabetes mellitus G8 MOTHER G8 SISTER Hypertension G8 MOTHER Pacemaker G8 MOTHER Allergies: Coded Allergies: Amoxicillin (Verified Allergy, Unknown, 11/01/22) Home Meds Active Scripts Insulin Glargine (Lantus) 100 Unit/Ml Inj, 30 UNIT SC QPM for 30 Days, #1 INJ Prov:PAWEL RIVERS RESIDENT 03/05/25 Lancets (Freestyle Lancets) Lancets Mis, BOTTLE XX TIDWM, #120 Prov:LUIS BEDOYA MD 10/29/22 Blood Glucose Monitoring Suppl (D-Care Glucometer Kit/Glu W/Device) 1 Kit Kit, KIT XX TIDWMEALS, #1 Prov:LUIS BEDOYA MD 10/29/22 Carvedilol (Carvedilol) 3.125 Mg Tab, 1 TAB PO BID, #60 TAB Prov:LUIS BEDOYA MD 10/29/22 Apixaban Base (ELIQUIS) 5 Mg Tab, 5 MG PO BID for 30 Days, #60 TAB Prov:LUIS BEDOYA MD 10/29/22 Verapamil HCl (Verapamil Hydrochloride) 120 Mg Tab, 1 TAB PO BID, #60 TAB Prov:CIRILO DRAPER MD 10/18/22 Reported Medications Montelukast Sodium (MONTELUKAST SODIUM) 10 Mg Tab, 1 TAB PO DAILY 10/17/22 Lisinopril (Lisinopril) 10 Mg Tab, 5 MG PO DAILY, TAB 05/15/17 Aspirin (Aspirin Ec) 81 Mg Tab, 81 MG PO DAILY, TAB 05/15/17 Atorvastatin Calcium (Lipitor) 20 Mg Tab, 1 TAB PO DAILY, #90 TAB 1 Refill 05/15/17 Current Medications Current Medications Medications (Trade) Dose Ordered Sig/Karon Route PRN Reason Start Time Stop Time Status Last Admin Calcium Gluconate/ Sodium Chloride 50 ml @ 100 mls/hr Q30M IV 06/19/25 23:30 06/20/25 00:29 DC 06/20/25 00:22 Apixaban (Eliquis) 5 mg BID PO 06/20/25 10:00 Aspirin 81 mg DAILY PO 06/20/25 10:00 Atorvastatin Calcium (Lipitor) 20 mg HS PO 06/20/25 22:00 Carvedilol (Coreg Tablet) 3.125 mg Q12HR PO 06/20/25 10:00 Lisinopril (Zestril Tablet) 10 mg DAILY PO 06/20/25 10:00 Verapamil HCl (Calan Sr) 120 mg BID PO 06/20/25 10:00 UNV Albuterol (Ventolin Medneb) 2.5 mg Q6HPRN PRN NEB SHORTNESS OF BREATH 06/20/25 04:15 Diagnostic Test (Pha) (Accu-Chek Comfort Curve T) 1 strip IQ4HR 06/20/25 08:00 06/20/25 08:00 Insulin Human Regular (InsuLIN R) IQ4HR SC 06/20/25 08:00 06/20/25 08:00 Dextrose 50 ml UD PRN IV Blood Sugar LESS THAN 60 06/20/25 04:15 Ondansetron HCl (Zofran) 4 mg Q4HP PRN IV NAUSEA / VOMITING 06/20/25 04:15 Acetaminophen (Tylenol Tablet) 650 mg Q6HP PRN PO PAIN SCALE 1-3 OR TEMP>100.4 06/20/25 04:15 Nitroglycerin (Ntrostat Sublingual) 0.4 mg Q5MINP PRN SL FOR CHEST PAIN 06/20/25 04:15 Morphine Sulfate 2 mg Q30M PRN IV FOR CHEST PAIN 06/20/25 04:15 Vital Signs Vital Signs Date Time Temp Pulse Resp B/P (MAP) Pulse Ox O2 Delivery O2 Flow Rate FiO2 06/20/25 08:00 125 06/20/25 07:30 97.9 20 163/113 (130) 97 97.9 06/20/25 04:40 2.0 28 06/20/25 04:40 Nasal Cannula* Physical Exam General Appearance: Alert, Oriented X3, Cooperative, No acute distress HEENT: Atraumatic, PERRLA, EOMI, Mucous membrane moist/pink Respiratory: Clear to auscultation, Normal air movement Cardiovascular: Regular rate, Normal S1, Normal S2, No murmurs, no chest wall tenderness Abdominal: Normal bowel sounds, Soft, No tenderness, No hepatospenomegaly, No masses Extremities: No clubbing, No cyanosis, No edema, Normal pulses, No tendern ess/swelling Skin: No rashes, No breakdown, No significant lesion Neuro: Normal gait, Normal speech, Strength at 5/5 X4 ext, Normal tone, Sensation intact, Cranial nerves 3-12 NL, Reflexes 2+ Psych/Mental Status: Mental status NL, Mood NL Labs/Diagnostic Data Labs Test 06/20/25 07:44 06/20/25 07:20 06/20/25 02:30 06/20/25 02:08 Range/Units POC Glucose 383 H 70-106 mg/dl Urine Opiates Screen Neg NEGATIVE Urine Fentanyl Screen Neg NEGATIVE Urine Barbiturates Screen Neg NEGATIVE Urine Phencyclidine Screen Neg NEGATIVE Urine Amphetamines Screen Pos NEGATIVE Urine Benzodiazepines Screen Neg NEGATIVE Urine Cocaine Screen Neg NEGATIVE Urine Cannabinoids Screen Neg NEGATIVE Troponin I High Sensitivity 23 </=54 ng/L Urine Color Light-yellow Yellow Urine Clarity Clear Clear Urine pH 5.5 5.0-9.0 Urine Specific [place] 1.028 1.001-1.035 Urine Protein Trace H Negative Urine Ketones 1+ H Negative Urine Blood Negative Negative /uL Urine Nitrite Negative Negative Urine Bilirubin Negative Negative Urine Urobilinogen Normal Negative mg/dL Urine Leukocyte Esterase Negative Negative /uL Urine RBC 1 0 - 3 /hpf Urine Microscopic WBC < 1 0-3 /HPF Urine Squamous Epithelial Cells None seen <5 /hpf Urine Bacteria None seen None Seen /hpf Urine Glucose 4+ H Normal mg/dL Test 06/20/25 01:26 06/19/25 23:25 Range/Units Lactic Acid Level 3.8 *H 0.4-2.0 mmol/L White Blood Count 7.4 4.4-10.8 10^3/uL Red Blood Count 5.42 4.5-5.90 10^6/uL Hemoglobin 17.1 13.5-17.5 g/dL Hematocrit 52.3 41.0-53.0 % Mean Corpuscular Volume 96.5 80.0-100.0 fL Mean Corpuscular Hemoglobin 31.5 28.0-32.0 pg Mean Corpuscular Hemoglobin Concent 32.6 32.0-36.0 g/dL Red Cell Distribution Width 14.7 H 11.8-14.3 % Platelet Count 273 140-450 10^3/uL Mean Platelet Volume 9.0 6.9-10.8 fL Neutrophils (%) (Auto) 61.5 37.0-80.0 % Lymphocytes (%) (Auto) 27.8 10.0-50.0 % Monocytes (%) (Auto) 8.4 0.0-12.0 % Eosinophils (%) (Auto) 1.6 0.0-7.0 % Basophils (%) (Auto) 0.7 0.0-2.0 % Neutrophils # (Auto) 4.5 1.6-8.6 10 ^3/uL Lymphocytes # (Auto) 2.0 0.4-5.4 10 ^3/uL Monocytes # (Auto) 0.6 0-1.3 10 ^3/uL Eosinophils # (Auto) 0.1 0-0.8 10 ^3/uL Basophils # (Auto) 0 0-0.2 10 ^3/uL Nucleated Red Blood Cells 0.0 % Sodium Level 132 L 136-145 mmol/L Potassium Level 4.9 3.5-5.1 mmol/L Chloride Level 98 98-107 mmol/L Carbon Dioxide Level 19 L 20-31 mmol/L Anion Gap 15 5-15 Blood Urea Nitrogen 14 9-23 mg/dL Creatinine 1.37 H 0.700-1.30 mg/dL Glomerular Filtration Rate Calc 57 >90 mL/min BUN/Creatinine Ratio 10.2 10.0-20.0 Serum Glucose 659 *H 74-106 mg/dL Calcium Level 9.4 8.7-10.4 mg/dL Phosphorus Level 4.1 2.4-5.1 mg/dL Magnesium Level 2.3 1.6-2.6 mg/dL B-Type Natriuretic Peptide 104.18 0-100 pg/mL Beta-Hydroxybutyric Acid 1.396 H < 0.4 mmol/L Assessment Ventricular tachycardia due to methamphetamine use disorder Uncontrolled Diabetes type 2 with hyperglycemia Hypertension CHF History of cardiac arrest CATIE, likely VMN * EKGs upon admission shows ventricular tachycardia which reverted with the bolus of amiodarone * Currently EKGs shows right bundle branch block with no significant ST or T- wave changes * Serial trop I and BNP is within normal limits Plan/recommendation (Case discussed with Dr. Lockett) * Continue home meds * Check echocardiogram * Patient counseled for amphetamine cessation * Follow with cardiology on outpatient basis, after amphetamin cessation, patient may have an event monitoring for recurrent VT detection Thank you for giving us the opportunity to take a refer patient. Please call back if you have any questions/concerns. Plan discussed with: Patient ETIENNE HERKELLY RESENT Jun 20, 2025 10:44
[2025-06-20] MEDS: APIXABAN 5 MG TAB PO SCH (11:04)
[2025-06-20] MEDS: LISINOPRIL 5 MG TAB PO SCH (11:04)
[2025-06-20] MEDS: CARVEDILOL 3.125 MG TAB PO SCH (11:05)
--- NOTE | 2025-06-20 12:42 | ECG ---
[facility] Test Date: 2025-06-20 Test Time: 00:36:10 Pat Name: YURI DILLON Department: ED Room: 0270T A Gender: M Imcu Specialist: vicky : 1960 Requested By: JERRI ADRIAN Order Number: [id number] Reading MD: Augie Lockett Measurements Intervals [place] Rate: 115 P: 261 MN: 146 QRS: -67 QRSD: 148 T: 44 QT: 381 QTc: 527 Interpretive Statements Ectopic atrial tachycardia, unifocal RBBB and LAFB Electronically Signed On 06-26-2025 17:32:11 PDT by Augie Lockett Please click the below link to view image of tracing.
--- NOTE | 2025-06-20 13:42 | DVHPN2 ---
Subjective Patient denies any symptoms at this time Reviewed: Care Plan, H&P, Labs, Medications Changes from previous H/P or p: No Changes General: Per HPI Objective Vitals Vital Signs Date Time Temp Pulse Resp B/P (MAP) Pulse Ox O2 Delivery O2 Flow Rate FiO2 06/20/25 12:12 86 146/80 06/20/25 11:10 97 Room Air* 0 21 06/20/25 11:08 17 06/20/25 07:30 97.9 97.9 General Appearance: Alert, Oriented X3, Cooperative, No acute distress HEENT: Atraumatic, PERRLA Lungs: Clear to auscultation, Normal air movement Cardiovascular: Normal S1, Normal S2 Musculoskeletal: Normal sensory function, Normal motor function Skin: Dry, Intact Psych/Mental Status: Mental status NL, Mood NL Medications Current Medications Medications Dose Ordered Sig/Karon Route Start Time Stop Time Status Last Admin Dose Admin Apixaban 5 mg BID PO 06/20/25 10:00 06/20/25 11:04 5 MG Aspirin 81 mg DAILY PO 06/20/25 10:00 06/20/25 11:04 81 MG Atorvastatin Calcium 20 mg HS PO 06/20/25 22:00 Carvedilol 3.125 mg Q12HR PO 06/20/25 10:00 06/20/25 11:05 3.125 MG Lisinopril 10 mg DAILY PO 06/20/25 10:00 06/20/25 11:04 10 MG Verapamil HCl 120 mg BID PO 06/20/25 10:00 Hold Albuterol 2.5 mg Q6HPRN PRN NEB 06/20/25 04:15 Ondansetron HCl 4 mg Q4HP PRN IV 06/20/25 04:15 Acetaminophen 650 mg Q6HP PRN PO 06/20/25 04:15 Nitroglycerin 0.4 mg Q5MINP PRN SL 06/20/25 04:15 Morphine Sulfate 2 mg Q30M PRN IV 06/20/25 04:15 Diagnostic Test (Pha) 1 strip ACHS 06/20/25 17:00 Insulin Human Regular HS SC 06/20/25 22:00 Insulin Human Regular AC SC 06/20/25 17:00 Dextrose 50 ml UD PRN IV 06/20/25 12:30 Sodium Chloride 1,000 ml @ 75 mls/hr [id number] IV 06/20/25 12:30 Laboratory Results Laboratory Tests 06/19/25 23:25 Chemistry Test 06/19/25 23:25 Calcium Level 9.4 mg/dL (8.7-10.4) Magnesium Level 2.3 mg/dL (1.6-2.6) Phosphorus Level 4.1 mg/dL (2.4-5.1) Cardiac Markers Test 06/19/25 23:25 B-Type Natriuretic Peptide 104.18 pg/mL (0-100) Urinalysis Test 06/20/25 02:08 Urine Color Light-yellow (Yellow) Urine Clarity Clear (Clear) Urine pH 5.5 (5.0-9.0) Urine Specific [place] 1.028 (1.001-1.035) Urine Protein Trace (Negative) H Urine Ketones 1+ (Negative) H Urine Blood Negative /uL (Negative) Urine Nitrite Negative (Negative) Urine Bilirubin Negative (Negative) Urine Urobilinogen Normal mg/dL (Negative) Urine Leukocyte Esterase Negative /uL (Negative) Urine RBC 1 /hpf (0 - 3) Urine Microscopic WBC < 1 /HPF (0-3) Urine Squamous Epithelial Cells None seen /hpf (<5) Urine Bacteria None seen /hpf (None Seen) Urine Glucose 4+ mg/dL (Normal) H Labs and/or images reviewed: Labs reviewed by me, Image(s) reviewed by me Assessment/Plan Assessment/Plan Impression: -ventricular tachycardia -amphetamine abuse -history of atrial fibrillation -acute on chronic diastolic heart failure -diabetes mellitus -primary hypertension -medication noncompliance -diabetic ketoacidosis Plan: -echocardiogram: Pending -continue current rate control with beta-naomi therapy -continue anticoagulation with Eliquis -cardiology consultation -potassium replacement -gentle IV hydration -regular insulin sliding scale -repeat labs in a.m. Critical care time spent with patient discussing and formulating plan of care: 40 minutes. This does not include time spent performing procedures. This medical document was created using an electronic medical record system with Guest [employer] a [employer] system. Although this document has been carefully reviewed, there may still be some phonetic and typographical errors. These areas are purely typographical due to imperfections of the software programs, and do not reflect any compromise in the patient's medical care. Plan discussed with: Patient, Other (RN) My Orders Orders - HENRY MCNEILL NP Procedure Category Date Status Time Glucose Blood PHA 06/20/25 In Process (Accu-Chek Comfort 17:00 Insulin R (Human) PHA 06/20/25 In Process (Insulin R) 22:00 Insulin R (Human) PHA 06/20/25 In Process (Insulin R) 17:00 Dextrose 50% Syringe PHA 06/20/25 In Process 12:30 Sodium Chloride 0.9% PHA 06/20/25 In Process 12:30 Hemoglobin A1c LAB 06/20/25 Logged 12:31 Date of Service: Jun 20, 2025 Billing Provider: HENRY MCNEILL NP Common Visit Codes: [id number] CARE 30-74 MIN HENRY MCNEILL NP Jun 20, 2025 13:41
[2025-06-20] MEDS: SODIUM CHLORIDE 0.9% 1,000 ML IV SCH (16:55)
[2025-06-20] MEDS: ATORVASTATIN 20 MG TAB PO SCH (21:26)
[2025-06-21] VITALS (13 sets, daily range): BP systolic 136–158; BP diastolic 74–97; PULSE 64–76; RESP 5–20; TEMP 98–98.1; O2SAT 94–100
[2025-06-21 05:22] LABS: Anion Gap 9 (5-15); Carbon Dioxide 26 mmol/L (20-31); Chloride 104 mmol/L (98-107); Potassium 3.6 mmol/L (3.5-5.1); Sodium 139 mmol/L (136-145)
[2025-06-21 05:23] LABS: Calcium 8.8 mg/dL (8.7-10.4)
[2025-06-21 05:28] LABS: BUN/Creatinine Ratio 20.2 (10.0-20.0); Blood Urea Nitrogen 18 mg/dL (9-23)
[2025-06-21 05:38] LABS: Glucose 260 mg/dL (74-106)
--- NOTE | 2025-06-21 09:27 | DVHSR ---
APPROVED REPORT EXAM: Two-dimensional and M-mode echocardiogram with Doppler and color Doppler. Blood Pressure: 163/107 mmHg INDICATION VTach RISK FACTORS Height: 67, Weight: 180 DIMENSIONS LVDd4.5 (3.8-5.7cm)LA (2D)3.9 (1.9-4.0cm)Aortic Root4.4 (2.0-3.7cm) LVDs2.8 (2.5-4.0cm)LA (MM) (1.9-4.0cm)Aortic Cusp Exc2.0 (1.5-2.0cm) EF (%) 70.0 (55-70%)Rt. Atrium5.4 (1.9-4.0cm)Asc. Aorta cm IVSd1.5 (0.7-1.1cm)RV (D) (1.8-2.4cm) PWd1.4 (0.7-1.1cm) Mitral Valve MitralMitral Stenosis E wave0.69m/sMV Mean GR.1mmHg A wave0.31m/sMV Peak GR.2mmHg E/A ratio2.22D MVAcm2 DECEL [id number] 1/2 [id number] IVRTmsDop MVA3.80cm2 Aortic Valve Aortic ValveAortic Stenosis V10.83m/Naveen Mean GR.2mmHg V20.94m/Naveen Peak GR.4mmHg LVOT Diameter1.9 (1.8-2.4cm)Doppler AVA2.50cm2 Pulmonic Valve V20.70m/s Tricuspid Valve TR Velocity2.05m/s [id number] Conclusion DILATED ALL CARDIAC CHAMBERS LV EF IS IN RANGE OF 40% AND IS REDUCED MILD LV GLOBAL HYPOKINESIS MODERATELY DILATED RV AND IS HYPOKINETIC NORMAL VALVES NO EFFUSION
[2025-06-21] MEDS: VERAPAMIL HCL 40 MG TAB PO ONE (10:39)
--- NOTE | 2025-06-21 13:35 | DVHPN2 ---
Subjective Shortness of of breaths with ambulation. Reviewed: Care Plan, H&P, Labs, Medications Changes from previous H/P or p: No Changes General: Per HPI Objective Vitals Vital Signs Date Time Temp Pulse Resp B/P (MAP) Pulse Ox O2 Delivery O2 Flow Rate FiO2 06/21/25 10:39 73 144/96 06/21/25 09:00 98.1 18 96 98.1 06/21/25 07:15 Room Air 06/21/25 07:15 0 21 Intake/Output Intake and Output 06/21/25 07:00 Intake Total 2420 ml Balance 2420 ml Intake Oral 1420 ml IV Total 1000 ml # Voids 4 General Appearance: Alert, Oriented X3, Cooperative, No acute distress HEENT: Atraumatic, PERRLA Lungs: Clear to auscultation, Normal air movement Cardiovascular: Normal S1, Normal S2 Musculoskeletal: Normal sensory function, Normal motor function Skin: Dry, Intact Psych/Mental Status: Mental status NL, Mood NL Medications Current Medications Medications Dose Ordered Sig/Karon Route Start Time Stop Time Status Last Admin Dose Admin Apixaban 5 mg BID PO 06/20/25 10:00 06/21/25 10:13 5 MG Aspirin 81 mg DAILY PO 06/20/25 10:00 06/21/25 10:13 81 MG Atorvastatin Calcium 20 mg HS PO 06/20/25 22:00 06/20/25 21:26 20 MG Carvedilol 3.125 mg Q12HR PO 06/20/25 10:00 06/21/25 10:14 3.125 MG Lisinopril 10 mg DAILY PO 06/20/25 10:00 06/21/25 10:16 10 MG Albuterol 2.5 mg Q6HPRN PRN NEB 06/20/25 04:15 Ondansetron HCl 4 mg Q4HP PRN IV 06/20/25 04:15 Acetaminophen 650 mg Q6HP PRN PO 06/20/25 04:15 Nitroglycerin 0.4 mg Q5MINP PRN SL 06/20/25 04:15 Morphine Sulfate 2 mg Q30M PRN IV 06/20/25 04:15 Diagnostic Test (Pha) 1 strip ACHS 06/20/25 17:00 06/21/25 06:06 1 STRIP Insulin Human Regular HS SC 06/20/25 22:00 06/20/25 21:33 8 UNITS Insulin Human Regular AC SC 06/20/25 17:00 06/21/25 11:44 9 UNITS Dextrose 50 ml UD PRN IV 06/20/25 12:30 Sodium Chloride 1,000 ml @ 75 mls/hr [id number] IV 06/20/25 12:30 06/21/25 06:06 75 MLS/HR Verapamil HCl 120 mg BID PO 06/21/25 22:00 Insulin Glargine 10 units DAILY@1000 SC 06/21/25 13:00 Laboratory Results Laboratory Tests 06/19/25 23:25 06/21/25 03:50 Chemistry Test 06/21/25 03:50 Calcium Level 8.8 mg/dL (8.7-10.4) HgA1c, TSH Test 06/20/25 15:09 Hemoglobin A1c > 14.0 % A1C (<5.7) H Urinalysis Test 06/20/25 02:08 Urine Color Light-yellow (Yellow) Urine Clarity Clear (Clear) Urine pH 5.5 (5.0-9.0) Urine Specific [place] 1.028 (1.001-1.035) Urine Protein Trace (Negative) H Urine Ketones 1+ (Negative) H Urine Blood Negative /uL (Negative) Urine Nitrite Negative (Negative) Urine Bilirubin Negative (Negative) Urine Urobilinogen Normal mg/dL (Negative) Urine Leukocyte Esterase Negative /uL (Negative) Urine RBC 1 /hpf (0 - 3) Urine Microscopic WBC < 1 /HPF (0-3) Urine Squamous Epithelial Cells None seen /hpf (<5) Urine Bacteria None seen /hpf (None Seen) Urine Glucose 4+ mg/dL (Normal) H Microbiology Microbiology Date/Time Source Procedure Growth Status 06/19/25 23:51 Blood Blood Culture - Preliminary NO GROWTH AFTER 24 HOURS OF INCUBATION. Resulted Labs and/or images reviewed: Labs reviewed by me, Image(s) reviewed by me Assessment/Plan Assessment/Plan Impression: -ventricular tachycardia -amphetamine abuse -history of atrial fibrillation -acute on chronic diastolic heart failure -diabetes mellitus -primary hypertension -medication noncompliance -diabetic ketoacidosis Plan: -echocardiogram: Results reviewed -start guideline directed medical therapy -Continue regular insulin sliding scale, and Lantus -continue anticoagulation with Eliquis -cardiology consultation : Recommendations reviewed -stop IV fluids This medical document was created using an electronic medical record system with [employer] dictation system. Although this document has been carefully reviewed, there may still be some phonetic and typographical errors. These areas are purely typographical due to imperfections of the software programs, and do not reflect any compromise in the patient's medical care. Plan discussed with: Patient, Other (RN) My Orders Orders - HENRY MCNEILL NP Procedure Category Date Status Time Verapamil Hcl (Calan) PHA 06/21/25 In Process 22:00 Insulin Lantus PHA 06/21/25 In Process (Glargine) (Lantus) 13:00 Date of Service: Jun 21, 2025 Billing Provider: HENRY MCNEILL NP Common Visit Codes: [id number] INP/OBS CARE(HIGH) HENRY MCNEILL NP Jun 21, 2025 13:35
[2025-06-21] MEDS: SPIRONOLACTONE 25 MG TAB PO SCH (16:45)
[2025-06-21] MEDS: EMPAGLIFLOZIN 10 MG TAB PO SCH (16:45)
[2025-06-21] MEDS: INSULIN LANTUS (GLARGINE) 1 /0.01ml (100units/ml) SC SCH (17:00)
[2025-06-21] MEDS: ALBUTEROL SULF 2.5 MG/0.5ML(0.5%) NEB SOLN NEB PRN (20:45)
[2025-06-21] MEDS: VERAPAMIL HCL 40 MG TAB PO SCH (21:06)
[2025-06-22] VITALS (14 sets, daily range): BP systolic 108–159; BP diastolic 81–95; PULSE 65–75; RESP 17–20; TEMP 96.3–97.9; O2SAT 92–100
[2025-06-22] MEDS: ONDANSETRON HCL 4 MG/2 ML VIAL IV PRN (23:14)
[2025-06-23] VITALS (13 sets, daily range): BP systolic 99–163; BP diastolic 20–95; PULSE 59–155; RESP 18–20; TEMP 36.6; O2SAT 91–100
--- NOTE | 2025-06-23 09:24 | DVHPN2 ---
Reviewed: Care Plan, H&P, Labs, Medications Changes from previous H/P or p: No Changes General: Per HPI Objective Vitals Vital Signs Date Time Temp Pulse Resp B/P (MAP) Pulse Ox O2 Delivery O2 Flow Rate FiO2 06/23/25 08:23 94 Room Air* 0 21 06/23/25 05:00 97.8 83 18 133/95 (108) 97.8 Intake/Output Intake and Output 06/23/25 07:00 Intake Total 1993 ml Balance 1993 ml Intake Oral 1993 ml # Voids 8 # Bowel Movements 1 General Appearance: Alert, Oriented X3, Cooperative, No acute distress HEENT: Atraumatic, PERRLA Lungs: Clear to auscultation, Normal air movement Cardiovascular: Normal S1, Normal S2 Musculoskeletal: Normal sensory function, Normal motor function Skin: Dry, Intact Psych/Mental Status: Mental status NL, Mood NL Medications Current Medications Medications Dose Ordered Sig/Karon Route Start Time Stop Time Status Last Admin Dose Admin Apixaban 5 mg BID PO 06/20/25 10:00 06/22/25 21:22 5 MG Aspirin 81 mg DAILY PO 06/20/25 10:00 06/22/25 10:27 81 MG Atorvastatin Calcium 20 mg HS PO 06/20/25 22:00 06/22/25 21:22 20 MG Carvedilol 3.125 mg Q12HR PO 06/20/25 10:00 06/22/25 21:22 3.125 MG Lisinopril 10 mg DAILY PO 06/20/25 10:00 06/22/25 10:28 10 MG Albuterol 2.5 mg Q6HPRN PRN NEB 06/20/25 04:15 06/22/25 19:50 2.5 MG Ondansetron HCl 4 mg Q4HP PRN IV 06/20/25 04:15 06/22/25 23:14 4 MG Acetaminophen 650 mg Q6HP PRN PO 06/20/25 04:15 Nitroglycerin 0.4 mg Q5MINP PRN SL 06/20/25 04:15 Morphine Sulfate 2 mg Q30M PRN IV 06/20/25 04:15 Diagnostic Test (Pha) 1 strip ACHS 06/20/25 17:00 06/23/25 05:58 1 STRIP Insulin Human Regular HS SC 06/20/25 22:00 06/22/25 21:32 8 UNITS Insulin Human Regular AC SC 06/20/25 17:00 06/23/25 06:02 6 UNITS Dextrose 50 ml UD PRN IV 06/20/25 12:30 Verapamil HCl 120 mg BID PO 06/21/25 22:00 06/22/25 21:21 120 MG Insulin Glargine 10 units DAILY@1000 SC 06/21/25 13:00 06/22/25 11:11 10 UNITS Empaglifozin 10 mg DAILY PO 06/21/25 13:45 06/22/25 10:27 10 MG Spironolactone 25 mg DAILY PO 06/21/25 13:45 06/22/25 10:27 25 MG Laboratory Results Laboratory Tests 06/19/25 23:25 06/21/25 03:50 Urinalysis Test 06/20/25 02:08 Urine Color Light-yellow (Yellow) Urine Clarity Clear (Clear) Urine pH 5.5 (5.0-9.0) Urine Specific [place] 1.028 (1.001-1.035) Urine Protein Trace (Negative) H Urine Ketones 1+ (Negative) H Urine Blood Negative /uL (Negative) Urine Nitrite Negative (Negative) Urine Bilirubin Negative (Negative) Urine Urobilinogen Normal mg/dL (Negative) Urine Leukocyte Esterase Negative /uL (Negative) Urine RBC 1 /hpf (0 - 3) Urine Microscopic WBC < 1 /HPF (0-3) Urine Squamous Epithelial Cells None seen /hpf (<5) Urine Bacteria None seen /hpf (None Seen) Urine Glucose 4+ mg/dL (Normal) H Microbiology Microbiology Date/Time Source Procedure Growth Status 06/19/25 23:51 Blood Blood Culture - Preliminary NO GROWTH AFTER 72 HOURS OF INCUBATION. Resulted Labs and/or images reviewed: Labs reviewed by me, Image(s) reviewed by me Assessment/Plan Assessment/Plan Impression: -ventricular tachycardia -amphetamine abuse -history of atrial fibrillation -acute on chronic diastolic heart failure -diabetes mellitus -primary hypertension -medication noncompliance -diabetic ketoacidosis Plan: -echocardiogram: Results reviewed -start guideline directed medical therapy -Continue regular insulin sliding scale, and Lantus -continue anticoagulation with Eliquis -cardiology consultation : Recommendations reviewed -- pending evaluation by cardio Plan discussed with: Patient Date of Service: Jun 22, 2025 Billing Provider: SIMÓN VEGA DO Common Visit Codes: [id number] INP/OBS CARE(HIGH) SIMÓN VEGA DO Jun 23, 2025 09:24
[2025-06-23] MEDS ORDERED: CARV-214 PO (09:26)
[2025-06-23] MEDS ORDERED: VER40T PO (09:26)
--- NOTE | 2025-06-23 09:27 | DVHDS2 ---
Discharge Summary Date of Admission Jun 20, 2025 at 04:01 Date of Discharge: Jun 23, 2025 Labs/Diagnostic Data: Laboratory Results Test 06/23/25 05:57 06/21/25 03:50 06/20/25 15:09 06/20/25 07:20 POC Glucose 207 mg/dl (70-106) Sodium Level 139 mmol/L (136-145) Potassium Level 3.6 mmol/L (3.5-5.1) Chloride Level 104 mmol/L (98-107) Carbon Dioxide Level 26 mmol/L (20-31) Anion Gap 9 (5-15) Blood Urea Nitrogen 18 mg/dL (9-23) Creatinine 0.89 mg/dL (0.700-1.30) Glomerular Filtration Rate Calc 95 mL/min (>90) BUN/Creatinine Ratio 20.2 (10.0-20.0) Serum Glucose 260 mg/dL (74-106) Calcium Level 8.8 mg/dL (8.7-10.4) Hemoglobin A1c > 14.0 % A1C (<5.7) Urine Opiates Screen Neg (NEGATIVE) Urine Fentanyl Screen Neg (NEGATIVE) Urine Barbiturates Screen Neg (NEGATIVE) Urine Phencyclidine Screen Neg (NEGATIVE) Urine Amphetamines Screen Pos (NEGATIVE) Urine Benzodiazepines Screen Neg (NEGATIVE) Urine Cocaine Screen Neg (NEGATIVE) Urine Cannabinoids Screen Neg (NEGATIVE) Test 06/20/25 02:30 06/20/25 02:08 06/20/25 01:26 06/19/25 23:25 Troponin I High Sensitivity 23 ng/L (</=54) Urine Color Light-yellow (Yellow) Urine Clarity Clear (Clear) Urine pH 5.5 (5.0-9.0) Urine Specific [place] 1.028 (1.001-1.035) Urine Protein Trace (Negative) Urine Ketones 1+ (Negative) Urine Blood Negative /uL (Negative) Urine Nitrite Negative (Negative) Urine Bilirubin Negative (Negative) Urine Urobilinogen Normal mg/dL (Negative) Urine Leukocyte Esterase Negative /uL (Negative) Urine RBC 1 /hpf (0 - 3) Urine Microscopic WBC < 1 /HPF (0-3) Urine Squamous Epithelial Cells None seen /hpf (<5) Urine Bacteria None seen /hpf (None Seen) Urine Glucose 4+ mg/dL (Normal) Lactic Acid Level 3.8 mmol/L (0.4-2.0) White Blood Count 7.4 10^3/uL (4.4-10.8) Red Blood Count 5.42 10^6/uL (4.5-5.90) Hemoglobin 17.1 g/dL (13.5-17.5) Hematocrit 52.3 % (41.0-53.0) Mean Corpuscular Volume 96.5 fL (80.0-100.0) Mean Corpuscular Hemoglobin 31.5 pg (28.0-32.0) Mean Corpuscular Hemoglobin Concent 32.6 g/dL (32.0-36.0) Red Cell Distribution Width 14.7 % (11.8-14.3) Platelet Count 273 10^3/uL (140-450) Mean Platelet Volume 9.0 fL (6.9-10.8) Neutrophils (%) (Auto) 61.5 % (37.0-80.0) Lymphocytes (%) (Auto) 27.8 % (10.0-50.0) Monocytes (%) (Auto) 8.4 % (0.0-12.0) Eosinophils (%) (Auto) 1.6 % (0.0-7.0) Basophils (%) (Auto) 0.7 % (0.0-2.0) Neutrophils # (Auto) 4.5 10 ^3/uL (1.6-8.6) Lymphocytes # (Auto) 2.0 10 ^3/uL (0.4-5.4) Monocytes # (Auto) 0.6 10 ^3/uL (0-1.3) Eosinophils # (Auto) 0.1 10 ^3/uL (0-0.8) Basophils # (Auto) 0 10 ^3/uL (0-0.2) Nucleated Red Blood Cells 0.0 % Phosphorus Level 4.1 mg/dL (2.4-5.1) Magnesium Level 2.3 mg/dL (1.6-2.6) B-Type Natriuretic Peptide 104.18 pg/mL (0-100) Beta-Hydroxybutyric Acid 1.396 mmol/L (< 0.4) Other Laboratory Tests 06/21/25 03:50 06/19/25 23:25 Brief Hx & Hospital Course: Impression: -ventricular tachycardia -amphetamine abuse -history of atrial fibrillation -acute on chronic diastolic heart failure -diabetes mellitus -primary hypertension -medication noncompliance -diabetic ketoacidosis Plan: -echocardiogram: Results reviewed -start guideline directed medical therapy -Continue regular insulin sliding scale, and Lantus -continue anticoagulation with Eliquis -cardiology consultation : Recommendations reviewed discharged to home with prescriptions sent to local pharmacy Condition at Discharge: Fair Final Diagnosis/Problems List see above Discharge Disposition: Home Discharge Instruct/Medications Diet: Cardiac 2g Na,low cholest Activity: No Restrictions, As Tolerated Scheduled Apixaban Base (Eliquis), 5 MG PO BID Aspirin (Aspirin Ec), 81 MG PO DAILY, (Reported) Atorvastatin Calcium (Lipitor), 1 TAB PO DAILY, (Reported) Carvedilol (Carvedilol), 1 TAB PO BID Carvedilol (Coreg), 3.125 MG PO Q12HR Insulin Glargine (Lantus), 30 UNIT SC QPM Lisinopril (Lisinopril), 5 MG PO DAILY, (Reported) Montelukast Sodium (Montelukast Sodium), 1 TAB PO DAILY, (Reported) Verapamil HCl (Verapamil Hydrochloride), 1 TAB PO BID Verapamil Hcl (Calan), 120 MG PO BID Durable Medical Equipment Blood Glucose Monitoring Suppl (D-Care Glucometer Kit/Glu W/Device), KIT XX TIDWMEALS, (DME) Lancets (Freestyle Lancets), BOTTLE XX TIDWM, (DME) Discharge Statement: "Patient was advised to return to the ER or call 911 if any headaches, dizziness, shortness of breath, chest pain, abdominal pain, bleeding, fevers, or worsening of medical condition. Patient was counseled about treatment plan, medications, possible side effects, patientverbalized understanding. All questions were answered to the best of my ability. This discharge took greater then 30 minutes in planning, reviewing documentation, counseling the patient, and discussing with other team members." ASSESSMENT ASSESSMENT Assessment Date of Service: Jun 23, 2025 Billing Provider: SIMÓN VEGA DO Common Visit Codes: [id number] INP/OBS CARE(HIGH) SIMÓN VEGA DO Jun 23, 2025 09:27
[2025-06-23] MEDS ORDERED: hydrALAZINE HCL 20 MG/ML VL IV PRN (12:00)
[2025-06-23] MEDS: SODIUM CHLORIDE 0.9% 500 ML IV ONE (12:29)
--- NOTE | 2025-06-23 19:27 | DVHPN2 ---
Subjective Episodes of AFib with RVR Denies chest pain or palpitation Reviewed: Care Plan, H&P, Labs, Medications Changes from previous H/P or p: Changes General: Per HPI Cardiovascular: Other (AFib with RVR) Objective Vitals Vital Signs Date Time Temp Pulse Resp B/P (MAP) Pulse Ox O2 Delivery O2 Flow Rate FiO2 06/23/25 19:10 96 Room Air 06/23/25 19:10 0 21 06/23/25 17:00 96.5 64 20 106/68 (81) 96.5 Intake/Output Intake and Output 06/23/25 07:00 Intake Total 1993 ml Balance 1993 ml Intake Oral 1993 ml # Voids 8 # Bowel Movements 1 General Appearance: Alert, Oriented X3, Cooperative, No acute distress HEENT: Atraumatic, PERRLA Lungs: Clear to auscultation, Normal air movement Cardiovascular: Normal S1, Normal S2 Musculoskeletal: Normal sensory function, Normal motor function Skin: Dry, Intact Psych/Mental Status: Mental status NL, Mood NL Medications Current Medications Medications Dose Ordered Sig/Karon Route Start Time Stop Time Status Last Admin Dose Admin Apixaban 5 mg BID PO 06/20/25 10:00 06/23/25 10:33 5 MG Aspirin 81 mg DAILY PO 06/20/25 10:00 06/23/25 10:33 81 MG Atorvastatin Calcium 20 mg HS PO 06/20/25 22:00 06/22/25 21:22 20 MG Carvedilol 3.125 mg Q12HR PO 06/20/25 10:00 06/23/25 10:33 3.125 MG Lisinopril 10 mg DAILY PO 06/20/25 10:00 06/23/25 10:31 10 MG Albuterol 2.5 mg Q6HPRN PRN NEB 06/20/25 04:15 06/22/25 19:50 2.5 MG Ondansetron HCl 4 mg Q4HP PRN IV 06/20/25 04:15 06/22/25 23:14 4 MG Acetaminophen 650 mg Q6HP PRN PO 06/20/25 04:15 Nitroglycerin 0.4 mg Q5MINP PRN SL 06/20/25 04:15 Morphine Sulfate 2 mg Q30M PRN IV 06/20/25 04:15 Diagnostic Test (Pha) 1 strip ACHS 06/20/25 17:00 06/23/25 17:14 1 STRIP Insulin Human Regular HS [place] 06/20/25 22:00 06/22/25 21:32 8 UNITS Insulin Human Regular AC SC 06/20/25 17:00 06/23/25 17:13 12 UNITS Dextrose 50 ml UD PRN IV 06/20/25 12:30 Verapamil HCl 120 mg BID PO 06/21/25 22:00 06/23/25 10:32 120 MG Insulin Glargine 10 units DAILY@1000 SC 06/21/25 13:00 06/23/25 11:29 10 UNITS Empaglifozin 10 mg DAILY PO 06/21/25 13:45 06/23/25 10:32 10 MG Spironolactone 25 mg DAILY PO 06/21/25 13:45 06/23/25 10:32 25 MG Hydralazine HCl 10 mg Q6HP PRN IV 06/23/25 12:00 Laboratory Results Laboratory Tests 06/19/25 23:25 06/21/25 03:50 Urinalysis Test 06/20/25 02:08 Urine Color Light-yellow (Yellow) Urine Clarity Clear (Clear) Urine pH 5.5 (5.0-9.0) Urine Specific [place] 1.028 (1.001-1.035) Urine Protein Trace (Negative) H Urine Ketones 1+ (Negative) H Urine Blood Negative /uL (Negative) Urine Nitrite Negative (Negative) Urine Bilirubin Negative (Negative) Urine Urobilinogen Normal mg/dL (Negative) Urine Leukocyte Esterase Negative /uL (Negative) Urine RBC 1 /hpf (0 - 3) Urine Microscopic WBC < 1 /HPF (0-3) Urine Squamous Epithelial Cells None seen /hpf (<5) Urine Bacteria None seen /hpf (None Seen) Urine Glucose 4+ mg/dL (Normal) H Microbiology Microbiology Date/Time Source Procedure Growth Status 06/19/25 23:51 Blood Blood Culture - Preliminary NO GROWTH AFTER 72 HOURS OF INCUBATION. Resulted Assessment/Plan Assessment/Plan 64-year-old male with a complex cardiac history including atrial fibrillation, acute on chronic heart failure with reduced ejection fraction (EF 40%), hypertension, diabetes, and medical noncompliance, was initially admitted for sustained ventricular tachycardia in the setting of amphetamine use. In the ED, he presented with wide complex tachycardia at a rate of 200bpm, and was successfully converted to sinus rhythm after receiving an amiodarone bolus. He is currently receiving GDMT for HFrEF including carvedilol. Cardiology is reconsulted today after telemetry revealed a run of atrial fibrillation with rapid ventricular response earlier this morning. The patient denies any chest pain, palpitations, or dizziness. Telemetry and serial 12-lead ECGs were reviewed; he was noted to spontaneously converted back to sinus rhythm this afternoon without any acute intervention. The most recent ECG demonstrates sinus rhythm with right bundle block branch and left anterior fascicular block. 1. Paroxysmal AFib 2. Ventricular tachycardia 3. Acute on chronic systolic heart failure 4. Amphetamine use disorder 5. Hypertension Plan/recommendation (Case discussed with Dr. Lockett) Cardiology recommends restarting amiodarone 200 mg b.i.d. for rhythm control in light of the patient's recurrent atrial fibrillation with RVR and recent episode of ventricular tachycardia. Continue beta naomi therapy with carvedilol as part of GDMT for HFrEF, ensuring blood pressure and heart rate remained stable. Continue continuously telemetry monitoring to assess arrhythmia burden. Monitor electrolytes closely and replete potassium and magnesium as needed to maintain arrhythmia prophylaxis. Monitor QTCs interval and renal and hepatic function during amiodarone therapy. The patient has been counseled on the importance of medication adherence and avoidance of stimulant use. Thank you for giving us the opportunity to take a refer patient. Please call back if you have any questions/concerns. Plan discussed with: Patient Plan discussed with: Patient Date of Service: Jun 23, 2025 Billing Provider: TASIA LOCKETT Sr., MD Common Visit Codes: CONSULT ONLY Consultation Codes: [id number] CONSULT <45MIN BRAD SANDERS Jun 23, 2025 19:26
[2025-06-23] MEDS: SODIUM CHLORIDE 0.9% 1,000 ML IV ONE (19:50)
[2025-06-23] MEDS: AMIODARONE HCL 200 MG TAB PO SCH (20:17)
[2025-06-23 20:20] LABS: Albumin 4.0 g/dL (3.2-4.8); Anion Gap 10 (5-15); BUN/Creatinine Ratio 17.6 (10.0-20.0); Blood Urea Nitrogen 21 mg/dL (9-23); Calcium 10.0 mg/dL (8.7-10.4); Carbon Dioxide 25 mmol/L (20-31); Chloride 100 mmol/L (98-107); Magnesium 2.1 mg/dL (1.6-2.6); Potassium 4.5 mmol/L (3.5-5.1); Total Protein 6.4 g/dL (5.7-8.2)
[2025-06-23 20:21] LABS: Alanine Aminotransferase 52 U/L (7-40); Alkaline Phosphatase 166 U/L (46-116); Bilirubin, Total 0.5 mg/dL (0.2-1.0); Glucose 348 mg/dL (74-106); Sodium 135 mmol/L (136-145)
[2025-06-23 20:29] LABS: Hematocrit 41.2 % (41.0-53.0); Hemoglobin 13.9 g/dL (13.5-17.5); Mean Corpuscular Hemoglobin 31.3 pg (28.0-32.0); Mean Corpuscular Volume 93.0 fL (80.0-100.0); Nucleated Red Blood Cells % 0.1 %
[2025-06-24] VITALS (9 sets, daily range): BP systolic 124–170; BP diastolic 77–94; PULSE 61–74; RESP 18–20; TEMP 95.8–98.2; O2SAT 92–97
--- NOTE | 2025-06-24 10:14 | ECG ---
[facility] Test Date: 2025-06-23 Test Time: 16:12:00 Pat Name: YURI DILLON Department: Room: 0270T A Gender: M Hide Handler: CHAU : 1960 Requested By: SIMÓN VEGA Order Number: [id number] Reading MD: Augie Lockett Measurements Intervals [place] Rate: 63 P: 51 CO: 169 QRS: -63 QRSD: 150 T: 254 QT: 445 QTc: 456 Interpretive Statements Sinus rhythm RBBB and LAFB Electronically Signed On 06-26-2025 13:52:46 PDT by Augie Lockett Please click the below link to view image of tracing.
--- NOTE | 2025-06-24 10:14 | ECG ---
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
--- NOTE | 2025-06-24 11:40 | DVHPN2 ---
Subjective The patient is seen and examined at bedside. The patient is supposed to be discharged yesterday but did not go home due to arrhythmia. 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 Reviewed: Care Plan, H&P, Labs, Medications Changes from previous H/P or p: No Changes General: Per HPI Cardiovascular: Other (AFib with RVR) Objective Vitals Vital Signs Date Time Temp Pulse Resp B/P (MAP) Pulse Ox O2 Delivery O2 Flow Rate FiO2 06/24/25 10:22 61 170/94 06/24/25 10:05 94 Room Air* 0 21 06/24/25 08:37 98.2 20 98.2 Intake/Output Intake and Output 06/24/25 07:00 Intake Total 2960 ml Balance 2960 ml Intake Oral 2960 ml # Voids 8 General Appearance: Alert, Oriented X3, Cooperative, No acute distress HEENT: Atraumatic, PERRLA Lungs: Clear to auscultation, Normal air movement Cardiovascular: Normal S1, Normal S2 Musculoskeletal: Normal sensory function, Normal motor function Skin: Dry, Intact Psych/Mental Status: Mental status NL, Mood NL Medications Current Medications Medications Dose Ordered Sig/Karon Route Start Time Stop Time Status Last Admin Dose Admin Apixaban 5 mg BID PO 06/20/25 10:00 06/24/25 10:20 5 MG Aspirin 81 mg DAILY PO 06/20/25 10:00 06/24/25 10:21 81 MG Atorvastatin Calcium 20 mg HS PO 06/20/25 22:00 06/23/25 20:44 20 MG Carvedilol 3.125 mg Q12HR PO 06/20/25 10:00 06/24/25 10:22 3.125 MG Lisinopril 10 mg DAILY PO 06/20/25 10:00 06/24/25 10:21 10 MG Albuterol 2.5 mg Q6HPRN PRN NEB 06/20/25 04:15 06/24/25 02:16 2.5 MG Ondansetron HCl 4 mg Q4HP PRN IV 06/20/25 04:15 06/22/25 23:14 4 MG Acetaminophen 650 mg Q6HP PRN PO 06/20/25 04:15 Nitroglycerin 0.4 mg Q5MINP PRN SL 06/20/25 04:15 Morphine Sulfate 2 mg Q30M PRN IV 06/20/25 04:15 Diagnostic Test (Pha) 1 strip ACHS 06/20/25 17:00 06/24/25 11:23 1 STRIP Insulin Human Regular HS UT 06/20/25 22:00 06/23/25 20:49 8 UNITS Insulin Human Regular AC SC 06/20/25 17:00 06/24/25 11:24 3 UNITS Dextrose 50 ml UD PRN IV 06/20/25 12:30 Verapamil HCl 120 mg BID PO 06/21/25 22:00 06/24/25 10:22 120 MG Insulin Glargine 10 units DAILY@1000 SC 06/21/25 13:00 06/24/25 11:24 10 UNITS Empaglifozin 10 mg DAILY PO 06/21/25 13:45 06/24/25 10:20 10 MG Spironolactone 25 mg DAILY PO 06/21/25 13:45 06/24/25 10:21 25 MG Hydralazine HCl 10 mg Q6HP PRN IV 06/23/25 12:00 Amiodarone HCl 200 mg Q12HR PO 06/23/25 19:30 06/24/25 10:21 200 MG Laboratory Results Laboratory Tests 06/23/25 19:35 Chemistry Test 06/23/25 19:35 Albumin 4.0 g/dL (3.2-4.8) Calcium Level 10.0 mg/dL (8.7-10.4) Magnesium Level 2.1 mg/dL (1.6-2.6) Total Protein 6.4 g/dL (5.7-8.2) LFT Test 06/23/25 19:35 Alanine Aminotransferase (ALT) 52 U/L (7-40) H Alkaline Phosphatase 166 U/L (46-116) H Aspartate Amino Transferase (AST) 29 U/L (13-40) Total Bilirubin 0.5 mg/dL (0.2-1.0) Urinalysis Test 06/20/25 02:08 Urine Color Light-yellow (Yellow) Urine Clarity Clear (Clear) Urine pH 5.5 (5.0-9.0) Urine Specific [place] 1.028 (1.001-1.035) Urine Protein Trace (Negative) H Urine Ketones 1+ (Negative) H Urine Blood Negative /uL (Negative) Urine Nitrite Negative (Negative) Urine Bilirubin Negative (Negative) Urine Urobilinogen Normal mg/dL (Negative) Urine Leukocyte Esterase Negative /uL (Negative) Urine RBC 1 /hpf (0 - 3) Urine Microscopic WBC < 1 /HPF (0-3) Urine Squamous Epithelial Cells None seen /hpf (<5) Urine Bacteria None seen /hpf (None Seen) Urine Glucose 4+ mg/dL (Normal) H Microbiology Microbiology Date/Time Source Procedure Growth Status 06/19/25 23:51 Blood Blood Culture - Preliminary NO GROWTH AFTER 72 HOURS OF INCUBATION. Resulted Labs and/or images reviewed: Labs reviewed by me Assessment/Plan Assessment/Plan -ventricular tachycardia -amphetamine abuse -history of atrial fibrillation -acute on chronic diastolic heart failure -diabetes mellitus -primary hypertension -medication noncompliance -diabetic ketoacidosis Plan: Current management. Patient was continuing on Lantus, Eliquis, Per cardiology the patient is stable to be discharged home. The patient will be discharged home today. This medical document was created using an electronic medical record system with [employer] direct computerized dictation system. Although this document has been carefully reviewed, there may still be some phonetic and typographical errors. These areas are purely typographical due to imperfections of the software programs, and do not reflect any compromise in the patient's medical care. Plan discussed with: Patient Date of Service: Jun 24, 2025 Billing Provider: JJ HAMPTON MD Common Visit Codes: [id number] INP/OBS CARE(HIGH) JJ HAMPTON MD Jun 24, 2025 11:40
--- NOTE | 2025-06-24 13:27 | DVHPN2 ---
Consult Progress Note Subjective Other Systems: Patient in normal sinus rhythm with right bundle branch block on licensed mortician Episodes of nonsustained V-tach seen overnight Objective vital signs Vital Sign Date Time Temp Pulse Resp B/P (MAP) Pulse Ox O2 Delivery O2 Flow Rate FiO2 06/24/25 12:36 98.2 74 18 124/86 (99) 92 98.2 06/24/25 10:05 Room Air* 0 21 Total Intake and Output 06/23/25 06/23/25 06/24/25 15:00 23:00 07:00 Intake Total 480 ml 1280 ml 1200 ml Balance 480 ml 1280 ml 1200 ml medications Current Medications Medications Dose Ordered Sig/Karon Route Start Time Stop Time Status Last Admin Dose Admin Apixaban 5 mg BID PO 06/20/25 10:00 06/24/25 10:20 5 MG Aspirin 81 mg DAILY PO 06/20/25 10:00 06/24/25 10:21 81 MG Atorvastatin Calcium 20 mg HS PO 06/20/25 22:00 06/23/25 20:44 20 MG Carvedilol 3.125 mg Q12HR PO 06/20/25 10:00 06/24/25 10:22 3.125 MG Lisinopril 10 mg DAILY PO 06/20/25 10:00 06/24/25 10:21 10 MG Albuterol 2.5 mg Q6HPRN PRN NEB 06/20/25 04:15 06/24/25 02:16 2.5 MG Ondansetron HCl 4 mg Q4HP PRN IV 06/20/25 04:15 06/22/25 23:14 4 MG Acetaminophen 650 mg Q6HP PRN PO 06/20/25 04:15 Nitroglycerin 0.4 mg Q5MINP PRN SL 06/20/25 04:15 Morphine Sulfate 2 mg Q30M PRN IV 06/20/25 04:15 Diagnostic Test (Pha) 1 strip ACHS 06/20/25 17:00 06/24/25 11:23 1 STRIP Insulin Human Regular HS SC 06/20/25 22:00 06/23/25 20:49 8 UNITS Insulin Human Regular AC SC 06/20/25 17:00 06/24/25 11:24 3 UNITS Dextrose 50 ml UD PRN IV 06/20/25 12:30 Verapamil HCl 120 mg BID PO 06/21/25 22:00 06/24/25 10:22 120 MG Insulin Glargine 10 units DAILY@1000 SC 06/21/25 13:00 06/24/25 11:24 10 UNITS Empaglifozin 10 mg DAILY PO 06/21/25 13:45 06/24/25 10:20 10 MG Spironolactone 25 mg DAILY PO 06/21/25 13:45 06/24/25 10:21 25 MG Hydralazine HCl 10 mg Q6HP PRN IV 06/23/25 12:00 Amiodarone HCl 200 mg Q12HR PO 06/23/25 19:30 06/24/25 10:21 200 MG Examination: GENERAL:Normal, LUNGS:Normal, CVS:Normal, NEURO:Normal laboratory and microbiology Laboratory Tests 06/23/25 19:35 Test 06/23/25 19:35 Range/Units Serum Glucose 348 H 74-106 mg/dL Problem List/Assessment/Plan Problem List/Assessment/Plan Paroxysmal atrial fibrillation, Stage 3A Nonsustained ventricular tachycardia Acute on chronic HFrEF, NYHA class III Hypertension Type 2 diabetes mellitus Acute kidney injury, resolved Amphetamine use Obesity Plan/recommendations (Dr. Lcokett): Transthoracic echocardiogram reveals an EF of 40%. Continue with guideline directed medical therapy for CHF as tolerated by blood pressure and renal function. [id number] VASc score: 3 points, HAS BLED: 1 point. Continue with antiarrhythmic agent, amiodarone and beta-naomi for rate control. Continue NOAC therapy, Eliquis. Monitor and replete electrolytes as needed, keeping potassium greater than four and magnesium greater than two. Education provided to the patient regarding cessation of illicit drug use. The patient will need to follow up with Cardiology in the outpatient setting upon discharge. Thank you for allowing us to care for this patient. Please call with any questions or concerns. This medical document was created using an electronic medical record system with voice recognition software and computerized dictation system. Although this document has been carefully reviewed, there might still be some phonetic and typographical errors. Occasional wrong-word or ``sound-alike substitutions may have occurred due to the inherent limitations of voice recognition software. These areas are purely typographical due to imperfections of the software programs and do not reflect any compromise in the patient's medical care. Please read the chart carefully and recognize, using context, where these substitutions have occurred. Plan discussed with: Patient Dietary Evaluation Review Comments: 1) Refer Pharmacovigilance Safety Expert for diabetes education 2) Continue current plan of care Expected Outcomes/Goals: Lab values to improve Fu 3-5 days Date of Service: Jun 24, 2025 Billing Provider: ONEIL ATKINS Common Visit Codes: [id number] INP/OBS CARE(HIGH) ONEIL ATKINS Jun 24, 2025 13:27
--- NOTE | 2025-06-24 13:45 | ECG ---
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
--- NOTE | 2025-06-24 13:46 | ECG ---
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
--- NOTE | 2025-06-25 07:17 | ECG ---
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
== END 2025-06-24 16:00 | disposition home or self-care (01) | DRG 637 ==
LOC: ER 23:06 → OVERFLOW 06-20 04:01 → TELE-WESTW 06-20 11:22
PROVIDERS: ADMIT Internal Medicine; ATTEND Internal Medicine
DX: E11.10 Type 2 diabetes mellitus with ketoacidosis without coma (principal); I50.33 Acute on chronic diastolic (congestive) heart failure; N17.0 Acute kidney failure with tubular necrosis; I47.20 Ventricular tachycardia, unspecified; I11.0 Hypertensive heart disease with heart failure; F17.210 Nicotine dependence, cigarettes, uncomplicated; E78.5 Hyperlipidemia, unspecified; F15.10 Other stimulant abuse, uncomplicated; E66.9 Obesity, unspecified; I48.0 Paroxysmal atrial fibrillation; Z79.4 Long term (current) use of insulin; Z79.82 Long term (current) use of aspirin; Z79.01 Long term (current) use of anticoagulants; Z88.0 Allergy status to penicillin; Z91.148 Patient's other noncompliance with medication regimen for other reason; Z68.28 Body mass index [BMI] 28.0-28.9, adult
CPT/HCPCS: 36415; 71045; 80048; 80053; 80307; 81001; 82010; 82962; 83036; 83605; 83735; 83880; 84100; 84484; 85025; 87040; 93005; 93306; 94640; 96365; 99291; 99292; G0378; J1815; J2405